=== PATIENT | male | born 1940 | race Caucasian/White ===

== ENCOUNTER 2017-04-06 14:09 | Inpatient (IN) | payer OTHER, MEDICAID ==
[~2017-04-06] VITALS: Ht 165.1 cm; Wt 112.5 kg
[2017-04-06 14:17] VITALS: BP 134/78
[2017-04-06] MEDS ORDERED: MODA200T46 PO (14:46)
[2017-04-06] MEDS ORDERED: DOCU-299 PO (14:46)
[2017-04-06] MEDS ORDERED: ALBU0.0912 INH (14:46)
[2017-04-06] MEDS ORDERED: FINA5TAB1 PO (14:46)
[2017-04-06] MEDS ORDERED: FERR325E14 PO (14:46)
[2017-04-06] MEDS ORDERED: FISH10005 PO (14:46)
[2017-04-06] MEDS ORDERED: CARV25TA PO (14:46)
[2017-04-06] MEDS ORDERED: VITD1000 PO (14:46)
[2017-04-06] MEDS ORDERED: VITB12 PO (14:46)
[2017-04-06] MEDS ORDERED: MIRABULK PO (14:46)
[2017-04-06] MEDS ORDERED: PHO667 PO (14:46)
[2017-04-06] MEDS ORDERED: ALLO100T21 PO (14:46)
[2017-04-06] MEDS ORDERED: BUME1TAB4 PO (14:46)
[2017-04-06] MEDS ORDERED: LEVO0.155 PO (14:46)
[2017-04-06] MEDS ORDERED: LIP80 PO (14:46)
[2017-04-06] MEDS ORDERED: NYST100022 PO (14:46)
[2017-04-06] MEDS ORDERED: NITR0.4T2 SL (14:46)
[2017-04-06] MEDS ORDERED: ASPI81CT89 PO (14:46)
[2017-04-06] MEDS ORDERED: CARB15SO23 OP (14:46)
--- NOTE | 2017-04-06 15:38 | NUR ---
PT TAKEN TO ER BED 10 BY EMS
--- NOTE | 2017-04-06 15:40 | NUR ---
76/M [facility] [facility] SYNCOPE AND HYPOTENSION. HD SITE L UPPER CHEST. DENIES N/V/D;AAOX4 , LUNGS CLEAR BL; PATIENT STATES PAIN OF 0/10 AT THIS TIME; PATIENT POSITIONED FOR COMFORT; HOB ELEVATED; BEDRAILS UP X2; BED DOWN. SARA TUCKER MADE AWARE OF PT STATUS. Addendum: 04/06/17 at 1756 by [email or web address] BOTH KNEES REPLACEMENT. Addendum: 04/06/17 at 1806 by [email or web address] R EYE BLIND.
--- NOTE | 2017-04-06 16:50 | NUR ---
RT AT BEDSIDE ,GAVE NON REBREATHING OXIGEN 15 L/M , PULSE OX 94%. Addendum: 04/06/17 at 1707 by [email or web address] PT C/O BACK PAIN 09/29 AT THIS TIME, NOTIFIED DR WEBBER.
--- NOTE | 2017-04-06 16:54 | NUR ---
Patient being evaluated by DR WEBBER at bedside.
--- NOTE | 2017-04-06 17:03 | NUR ---
PT TAKEN TO CT VIA GURBETI ACCOMPANIED BY ROLL PICKER.
--- NOTE | 2017-04-06 17:03 | NUR ---
`PT PLACED ON 100% NRM POST ABG PER DR BAMBI DEL ANGEL
[2017-04-06] MEDS ORDERED: oxyCODONE/APAP 5/325 MG 1 TAB TAB PO ONE (17:15)
--- NOTE | 2017-04-06 17:47 | NUR ---
LAB AT BEDSIDE
--- NOTE | 2017-04-06 19:22 | NUR ---
EKG DONE AT BEDSIDE BY NADINE SCHAFER AND ANGIE RN. ER MD DR. HANLEY MADE AWARE
[2017-04-06] MEDS ORDERED: SODIUM BICARBONATE 8.4% PFS 50 MEQ/50 ML SYR IVP ONE (19:25)
[2017-04-06] MEDS ORDERED: INSULIN REGULAR, HUMAN 100 UNIT/ML VIAL SUBQ ONE (19:25)
[2017-04-06] MEDS ORDERED: SODIUM POLYSTYRENE 15 GM/60 ML UDBTL PO ONE (19:25)
[2017-04-06] MEDS ORDERED: DEXTROSE 50% 50 ML SYR IVP ONE (19:25)
--- NOTE | 2017-04-06 19:32 | NUR ---
WOUND AT [facility].
--- NOTE | 2017-04-06 19:35 | NUR ---
NO URENATED ; DR WEBBER CANCEL ORDER UA.
--- NOTE | 2017-04-06 19:36 | NUR ---
Pt report given to HANH MCCOY. Transfer of care at this time.
[2017-04-06] MEDS ORDERED: LEVOFLOXACIN 750 MG/D5W PREMIX 150 ML IV ONE (19:45)
[2017-04-06] MEDS ORDERED: VANCOMYCIN 1,000 MG in DEXTROSE 5% 250 ML IV ONE (19:45)
--- NOTE | 2017-04-06 20:58 | NUR ---
PT MOVED TO BED 10
[2017-04-06 21:01] LABS: BASOPHILS # (AUTO) 0.1 K/uL (0.00-0.22); BASOPHILS % (AUTO) 2.4 % (0.0-2.0); EOSINOPHILS % (AUTO) 0.7 % (0.0-4.0); HEMATOCRIT 37.8 % (36-52); HEMOGLOBIN 11.6 g/dL (12.0-18.0); LYMPHOCYTES # (AUTO) 1.4 K/uL (2.0-11.5); LYMPHOCYTES % (AUTO) 23.8 % (20.5-51.1); MEAN CORPUSCULAR HEMOGLOBIN 29 pg (27-31); MEAN CORPUSCULAR HGB CONC 31 g/dL (33-37); MEAN CORPUSCULAR VOLUME 93 fL (80-94); MONOCYTES # (AUTO) 0.2 K/uL (0.8-1.0); MONOCYTES % (AUTO) 3.8 % (1.7-9.3); NEUTROPHILS % (AUTO) 69.3 % (42.2-75.2); PLATELET COUNT (AUTO) 282 K/uL (140-450); RED BLOOD CELL COUNT(AUTO) 4.06 MIL/uL (4.20-6.10); RED CELL DISTRIBUTION WIDTH 18.7 % (11.6-13.7); WHITE BLOOD COUNT (AUTO) 5.7 K/uL (4.8-10.8)
[2017-04-06 21:15] VITALS: BP 102/54
--- NOTE | 2017-04-06 21:17 | NUR ---
PER DR HANLEY PT TO BE PLACED ON BIPAP RT PRESENT AT BEDSIDE SARITHA
[2017-04-06 21:18] LABS: ALBUMIN 1.8 g/dL (3.4-5.0); ANION GAP 11.3 (8-16); ASPARTATE AMINOTRANSFERASE 15 U/L (15-37); CARBON DIOXIDE 34.5 mmol/L (21-32); CHLORIDE 94 mmol/L (98-107); GLUCOSE 220 mg/dL (74-106); POTASSIUM 4.8 mmol/L (3.5-5.1); SODIUM SERUM 135 mmol/L (136-145); TOTAL BILIRUBIN 0.2 mg/dL (0.0-1.0)
[2017-04-06 21:24] LABS: UREA NITROGEN, BLOOD 70 mg/dL (7-18)
[2017-04-06 21:25] LABS: CREATININE 7.8 mg/dL (0.7-1.3)
[2017-04-06 21:38] LABS: PROTHROMBIN TIME 12.2 secs (10.8-13.4)
--- NOTE | 2017-04-06 22:22 | NUR ---
RAC IV removed, catheter intact and site benign. Applied folded 4x4 gauze and tape to stop bleeding.
[2017-04-06] MEDS ORDERED: VANCOMYCIN 1,000 MG VIAL ONE (22:53)
[2017-04-06] MEDS ORDERED: methylPREDNISolone SS 125 MG in WATER STERILE 2 ML IV ONE (23:30)
[2017-04-06] MEDS ORDERED: methylPREDNISolone SS 125 MG/2 ML VIAL ONE (23:32)
[2017-04-06] MEDS ORDERED: NACL 0.9% 1,000 ML IV SCH (23:33)
[2017-04-06] MEDS ORDERED: ONDANSETRON 4 MG/2 ML VIAL IVP PRN (23:35)
[2017-04-06] MEDS ORDERED: HYDROcodone/APAP 7.5/325 MG 1 TAB PO PRN (23:35)
[2017-04-06] MEDS ORDERED: ACETAMINOPHEN 325 MG TAB PO PRN (23:35)
[2017-04-06 23:41] VITALS: BP 84/49
[2017-04-07] VITALS (18 sets, daily range): BP systolic 100–145; BP diastolic 50–80
[2017-04-07 00:07] LABS: CHOL/HDL RATIO 5.7 (1-4.5); FREE T4 (FREE THYROXINE) 0.84 ng/dL (0.76-1.46); MAGNESIUM 2.4 mg/dL (1.8-2.4); PHOSPHORUS 5.9 mg/dL (2.5-4.9); THYROID STIMULATING HORMONE 2.79 uIU/mL (0.34-3.74)
--- NOTE | 2017-04-07 00:30 | NUR ---
RECEIVED PT FROM ER VIA GURNEY.MONITOR ATTACHED.SB TO SR ON MONITOR.PT AWAKE ALERT AND ORIENTED X4.ON BIPAP RATE 14 FIO2 32%.LUNG SOUND DIMINISHED THROUGHOUT.PERIPHERAL IV TO RT THUMB G24 INTACT INFUSING ORDERED IVF.W/HEMODIALYSIS CATHETER TO LT SUBCLAVIAN.WITH D/I DRESSING.W/MULTIPLE SMALL OPEN WOUNDS TO LT BUTTOCKS AND SACROCOCCYGEAL AREA.PT NON AMBULATORY WITH GENERALIZED WEAKNESS NOTED.DENIES PAIN WHEN ASKED. Addendum: 04/07/17 at 0554 by Zuleika Roberson RN BS CHECKED 89
--- NOTE | 2017-04-07 00:39 | NUR ---
Patient will be admitted to care of DR. COTO. Admited to ICU. Will go to rooM 1. Belongings list completed. Report to DARIUS SCHAFER.
--- NOTE | 2017-04-07 00:40 | NUR ---
PT TRANSFERRED TO ICU 1 WITH BETI SCHAFER
--- NOTE | 2017-04-07 01:00 | NUR ---
DR PARDO AT BEDSIDE.PT EXAMINED. PT VERBALIZED WANTING TO GO HOME.PHONE CALL MADE TO PTS SON.AWAITING REPLY.
--- NOTE | 2017-04-07 02:30 | NUR ---
PT ASLEEP;NOT IN RESP DISTRESS.REPOSITIONED.NO C/O PAIN
[2017-04-07] MEDS ORDERED: ALBUTEROL SULFATE/IPRATROPIU 3 ML SOL IH PRN (03:00)
[2017-04-07] MEDS ORDERED: DEXTROSE 50% 50 ML SYR IVP PRN ×2 (03:00→11:35)
--- NOTE | 2017-04-07 04:00 | NUR ---
PT ASLEEP;EASILY AROUSABLE.100% 02SAT /BIPAP.SAME BIPAP SETTINGS RATE 14 FIO2 32%.NO SOB NOTED
[2017-04-07] MEDS ORDERED: CLINDAMYCIN 600 MG/4 ML VIAL ONE (04:19)
[2017-04-07] MEDS ORDERED: CLINDAMYCIN 600 MG in DEXTROSE 5% 50 ML IV SCH (05:00)
[2017-04-07] MEDS: ALBUTEROL SULFATE/IPRATROPIU 3 ML SOL IH SCH ×3 (06:41→20:00)
--- NOTE | 2017-04-07 06:50 | NUR ---
RECIVED PT ON BIPAPWITH SETTINGS CHARTED BREATH SOUNDA PRESENT BILAT DIMINISHED PT AWAKE ANXIOUS AMBU BAG BEDSIDE BIPAP PLUGGED INTO RED OUTLET WILL CONTINUE TO MONITOR PT ON BIPAP
--- NOTE | 2017-04-07 07:00 | NUR ---
REMOVED PT FROM BIPAP AND PLACED ON 4 LPM NCTO EAT BREAKFEAST PT AWAKE CONFUFED BUT EATING BREAKFEAST WILL CONTINUE TO MONITOR PT
--- NOTE | 2017-04-07 07:30 | NUR ---
RECEIVED PT FROM BARREL CENTERER RN. PT AO X4, ON O2 NC 3 L/MIN, NO S/S OF RESPIRATORY DISTRESS NOTED. PT HAS IV TO RIGHT THUMB , INTACT AND PATENT. PERMA CATH TO LEFT CHEST, PT ABLE TO MOVE ALL HIS EXTREMITIES, EDEMA TO BLE NOTED. SKIN NON INTACT, SEE WOULD ASSESSMENT, CALL LIGHT IN REACH, WILL CONTINUE TO MONITOR.
--- NOTE | 2017-04-07 07:56 | NUR ---
BREAKFAST TRAY SERVED, STUDENT AT BEDSIDE FEEDING PT.
[2017-04-07] MEDS: BLOOD GLUCOSE MONITORING 1 DEV DEV FS SCH ×4 (08:01→20:57)
[2017-04-07 08:07] LABS: ANION GAP 14.6 (8-16); CARBON DIOXIDE 33.5 mmol/L (21-32); CHLORIDE 94 mmol/L (98-107); GLUCOSE 82 mg/dL (74-106); POTASSIUM 5.1 mmol/L (3.5-5.1); SODIUM SERUM 137 mmol/L (136-145)
[2017-04-07 08:09] LABS: UREA NITROGEN, BLOOD 72 mg/dL (7-18)
[2017-04-07 08:10] LABS: CREATININE 8.1 mg/dL (0.7-1.3)
[2017-04-07 08:36] LABS: BASOPHILS # (AUTO) 0.2 K/uL (0.00-0.22); BASOPHILS % (AUTO) 1.3 % (0.0-2.0); EOSINOPHILS # (AUTO) 0.1 K/uL (0-0.4); EOSINOPHILS % (AUTO) 0.7 % (0.0-4.0); HEMATOCRIT 22.5 % (36-52); HEMOGLOBIN 7.2 g/dL (12.0-18.0); LYMPHOCYTES # (AUTO) 1.2 K/uL (2.0-11.5); MEAN CORPUSCULAR HEMOGLOBIN 29 pg (27-31); MEAN CORPUSCULAR HGB CONC 32 g/dL (33-37); MEAN CORPUSCULAR VOLUME 91 fL (80-94); MONOCYTES # (AUTO) 0.1 K/uL (0.8-1.0); MONOCYTES % (AUTO) 1.2 % (1.7-9.3); NEUTROPHILS # (AUTO) 10.6 K/uL (1.8-7.7); NEUTROPHILS % (AUTO) 86.8 % (42.2-75.2); PLATELET COUNT (AUTO) 441 K/uL (140-450); RED BLOOD CELL COUNT(AUTO) 2.47 MIL/uL (4.20-6.10); RED CELL DISTRIBUTION WIDTH 17.7 % (11.6-13.7); WHITE BLOOD COUNT (AUTO) 12.3 K/uL (4.8-10.8)
[2017-04-07 08:51] LABS: MAGNESIUM 2.4 mg/dL (1.8-2.4); PHOSPHORUS 5.7 mg/dL (2.5-4.9)
[2017-04-07] MEDS ORDERED: DOCUSATE SODIUM 100 MG GELCAP PO SCH (09:00)
[2017-04-07] MEDS ORDERED: SODIUM BICARBONATE 8.4% PFS 50 MEQ/50 ML SYR IVP ONE (09:00)
--- NOTE | 2017-04-07 09:04 | NUR ---
PATIENT HAS BEEN SCREENED AND CATEGORIZED HIGH NUTRITION RISK. PATIENT WILL BE SEEN WITHIN 1-2 DAYS OF ADMISSION. 04/06/18-04/07/[address]
[2017-04-07] MEDS ORDERED: VANCOMYCIN PER PHARMACY MC PRN (09:15)
[2017-04-07] MEDS ORDERED: methylPREDNISolone SS 125 MG/2 ML VIAL IVP SCH (09:27)
--- NOTE | 2017-04-07 10:45 | NUR ---
DR. CAMARENA AND DR. MCWILLIAMS AWARE PT HAS SB-SR RANGE FROM 39-90.
[2017-04-07] MEDS ORDERED: PROBIOTIC SCREEN 1 EA MISC MC PRN (11:10)
[2017-04-07] MEDS: INSULIN LISPRO SLIDING SCALE 100 UNITS/ML VIAL SUBQ PRN ×3 (11:30→21:08)
[2017-04-07] MEDS ORDERED: INSULIN LISPRO SLIDING SCALE 100 UNITS/ML VIAL SUBQ PRN (11:35)
[2017-04-07] MEDS: HYDRAGUARD CREAM TP SCH (13:00)
--- NOTE | 2017-04-07 13:53 | NUR ---
CM NOTE INITIAL REVIEW FOR CRITERIA DONE
--- NOTE | 2017-04-07 14:00 | NUR ---
Social Workers notes: [facility] [place] and I spoke to Tile Designer at Admissions office Fabiola and required information in regards to patient. Per Tile Designer Fabiola Patient is a new patient that recently about a day ago was placed in their facility to receive Skill Nursing services temporarily 1-2 weeks. According to Tile Designer Patient when for a dialysis appointment, got ill in facility and was send to [facility]. Per general farmworker Fabiola, There is little to non information about patient's emergency contact or family involvement. Per Fabiola, Patient is to return to their facility when patient is stable or ready for discharge. I thank Fabiola for her information and I ended the call.
[2017-04-07] MEDS: methylPREDNISolone SS 125 MG/2 ML VIAL IVP SCH ×2 (14:19→21:08)
--- NOTE | 2017-04-07 14:29 | NUR ---
04/07/2017 RD INITIAL ASSESSMENT COMPLETED PLEASE REFER TO NUTRITION ASSESSMENT UNDER CARE ACTIVITY FOR ESTIMATED NUTRITIONAL NEEDS. CONTINUE ANTIHYPERGLYCEMIC MEDS AND 60 GM PCCHO DIET FOR GLUCOSE CONTROL PROVIDE ADEQUATE ENERGY AND PROTEIN TO DECREASE RISK OF MALNOURISHMENT WHILE PROVIDING HEALTHY MEAL OPTIONS RD TO FOLLOW-UP IN 2-3 DAYS PATIENT IS HIGH RISK. YONY WALSH, RD
[2017-04-07] MEDS ORDERED: BLOOD GLUCOSE MONITORING 1 DEV DEV FS SCH (16:30)
[2017-04-07] MEDS ORDERED: VITD1000 PO (17:40)
[2017-04-07] MEDS ORDERED: GLYCERIN OP PRN (17:40)
[2017-04-07] MEDS ORDERED: FISH10005 PO (17:40)
[2017-04-07] MEDS ORDERED: CARBOXYMETHYLCELLULOS OP PRN (17:40)
[2017-04-07] MEDS ORDERED: VITB12 PO (17:40)
[2017-04-07] MEDS ORDERED: NITROGLYCERIN 0.4 MG TAB SL PRN (17:40)
[2017-04-07] MEDS ORDERED: ALBUTEROL HFA MDI 90 MCG/ACTUATION 8 GM INH PRN (17:40)
--- NOTE | 2017-04-07 19:30 | NUR ---
REPORT RECEIVED FROM ML [place] RN. PT IS A&O X4 AND IS CURRENTLY RECEIVING HEMODIALYSIS AT BED SIDE. BILATERAL LUNG SOUNDS CLEAR. S1 AND S2 HEARD WITHOUT ABNORMAL SOUNDS. BOWEL SOUNDS ACTIVE. HEMODIALYSIS PERMA CATH NOTED TO LEFT UPPER CHEST. IV SITE NOTED TO RIGHT LEG 22G AND ASYMPTOMATIC AND PATENT. 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 SR ON MONITOR. DRESSING INTACT ON THE SACROCOCCYX AREA. HX OF MRSA NOTED. CONTACT ISOLATION PRECAUTIONS CARRIED OUT DURING CARE. DENIES PAIN OR DISCOMFORT AT THIS TIME. PORTABLE TRANS THORACIC PACEMAKER AT BED SIDE. PT IS SR AT THIS TIME. HEMODIALYSIS NURSE AT BED SIDE AT THIS TIME. CALL LIGHT IN REACH AND HOB ELEVATED TO 30 DEGREES AND KEPT BED TO THE LOWEST POSITION. WILL CONTINUE TO MONITOR.
[2017-04-07] MEDS ORDERED: LEVOFLOXACIN 750 MG/D5W PREMIX 150 ML IV SCH (20:00)
--- NOTE | 2017-04-07 20:00 | NUR ---
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
--- NOTE | 2017-04-07 20:16 | NUR ---
DR. TUCKER PAGED TO CLARIFY THE BED SIDE PACE MAKER RATE IN CASE THE PT NEEDS IT. Addendum: 04/07/17 at 2352 by Angeli Garcia RN DR. GRULLON SPELLED WRONG- CORRECTION TO DR. MENJIVAR.
--- NOTE | 2017-04-07 20:22 | NUR ---
DR. GAMA CALLED BACK AND ORDERED TO START THE PACE MAKER AT RATE OF 50 AND START Ma=14. Addendum: 04/07/17 at 2352 by Angeli Garcia RN DR. GRULLON SPELLED WRONG- CORRECTION TO DR. MENJIVAR.
[2017-04-07] MEDS ORDERED: MODAFINIL 200 MG PO SCH (21:00)
[2017-04-07] MEDS ORDERED: FERROUS SULFATE 325 MG TABEC PO SCH (21:00)
[2017-04-07] MEDS ORDERED: CARVEDILOL 12.5 MG TAB PO SCH ×2 (21:00)
--- NOTE | 2017-04-07 21:00 | NUR ---
SPOKE TO DR. JIMMIE COTO IN REGARDS TO MDI ORDERED BY DR. ZAHIRA GR AT [address] COTO THAT PATIENT IS ON HHN THERAPY MD STATES THAT HE WILL DISCONTINUE MDI
--- NOTE | 2017-04-07 21:02 | NUR ---
PT COMPLETED WITH HEMODIALYSIS AT THIS TIME. 2L OUTPUT NOTED. PT DENIES ANY PAIN OR DISCOMFORT.
[2017-04-07] MEDS: NYSTATIN 500 MU/5 ML UDC PO SCH (21:08)
[2017-04-07] MEDS: DOCUSATE SODIUM 250 MG GELCAP PO SCH (21:09)
[2017-04-07] MEDS: ATORVASTATIN 80 MG TAB PO SCH (21:10)
--- NOTE | 2017-04-07 22:15 | NUR ---
AWAKE AND ALERT RESPONSIVE TO AUTOMOTIVE PARTS COUNTER ASSOCIATE VERBAL COMMANDS WATCHING TELEVISION PATIENT DENIES THE USE OF BIPAP AT THIS TIME PATIENT WILL ACCEPT IN ONE HOUR IF ASLEEP
--- NOTE | 2017-04-07 22:40 | NUR ---
PATIENT REQUEST BIPAP USE AT THIS TIME PATIENT PROTECTA-GEL IN PLACE PATIENT C/O "TOO MUCH PRESSURE" DECREASED IPAP TO [id number] EPAP TO 8cmH2O PATIENT STATES "THAT IS MORE COMFORTABLE WITH PRESSURE" UNIT CLERK TO REVIEW PRESSURE CHANGE WITH DR. DEBBIE COTO
[2017-04-08] VITALS (12 sets, daily range): BP systolic 120–155; BP diastolic 60–135
--- NOTE | 2017-04-08 | NUR ---
PT ON BIPAP AT THIS TIME. NO S/SX OF PAIN OR DISCOMFORT. SR ON MONITOR. WILL CONTINUE TO MONITOR.
[2017-04-08] MEDS: HYDRAGUARD CREAM TP SCH ×2 (01:30→12:15)
--- NOTE | 2017-04-08 01:30 | NUR ---
WOUND CARE PROVIDED ORDERED. TOLERATED WELL. DENIED PAIN OR DISCOMFORT. WILL CONTINUE TO MONITOR.
--- NOTE | 2017-04-08 02:13 | NUR ---
CONTINUING W/ BIPAP. REPOSITIONED. HR=50-70. O2 SAT=97%. RR EVEN AND UNLABORED. PT DENIES PAIN OR DISCOMFORT. AFEBRILE. TRANS THORACIC PACEMAKER AT BED SIDE IN CASE OF A USE. WILL CONTINUE TO MONITOR.
[2017-04-08] MEDS: methylPREDNISolone SS 40 MG/ML VIAL IVP SCH ×3 (04:18→21:02)
--- NOTE | 2017-04-08 05:00 | NUR ---
MORNING CARE PROVIDED. PT REQUESTED BIPAP TO BE OFF AND BACK TO O2 VIA NC. ASSISTED PT REQUESTED. O2 SAT 97%. DENIES ANY PAIN OR DISCOMFORT. WILL CONTINUE TO MONITOR.
[2017-04-08] MEDS: LEVOTHYROXINE 0.075 MG TAB PO SCH (05:40)
--- NOTE | 2017-04-08 05:55 | NUR ---
DR. CARLOS AT BED SIDE. UPDATED PT'S CONDITION OVER NIGHT.
--- NOTE | 2017-04-08 06:32 | NUR ---
DR. CARLOS MADE AWARE OF THE HR DROP TO 43 @ 0623 AND TEMP PACER WAS ON. THE HR WENT UP TO OVER 100 AND PT REFUSED TO PUT IT ON DUE TO BEING UNCOMFORTABLE. HR 79 AT THIS TIME. WILL CONTINUE TO MONITOR.
[2017-04-08 06:39] LABS: ANION GAP 15.5 (8-16); CARBON DIOXIDE 29.6 mmol/L (21-32); CHLORIDE 95 mmol/L (98-107); GLUCOSE 168 mg/dL (74-106); POTASSIUM 4.1 mmol/L (3.5-5.1); SODIUM SERUM 136 mmol/L (136-145); UREA NITROGEN, BLOOD 57 mg/dL (7-18)
--- NOTE | 2017-04-08 06:40 | NUR ---
PAGED DR. MENJIVAR REGARDING THE HR AND TEMP PACER. AWAITING A CALL BACK.
[2017-04-08 06:42] LABS: CREATININE 6.1 mg/dL (0.7-1.3)
[2017-04-08 06:46] LABS: PHOSPHORUS 5.6 mg/dL (2.5-4.9)
[2017-04-08 06:49] LABS: MEAN CORPUSCULAR HEMOGLOBIN 29 pg (27-31); MEAN CORPUSCULAR HGB CONC 32 g/dL (33-37); MEAN CORPUSCULAR VOLUME 91 fL (80-94); PLATELET COUNT (AUTO) 454 K/uL (140-450); WHITE BLOOD COUNT (AUTO) 7.8 K/uL (4.8-10.8)
[2017-04-08 06:51] LABS: HEMOGLOBIN 6.7 g/dL (12.0-18.0)
[2017-04-08] MEDS: ALBUTEROL SULFATE/IPRATROPIU 3 ML SOL IH SCH ×3 (06:55→20:13)
--- NOTE | 2017-04-08 06:56 | NUR ---
RECEIVED PT ON 3L N/ PT REQUEST BIPAP TO SLEEP PLACED F\F MASK SIZE LARGE ST 16\8 RR 14 FIO2 32 ALARMS ARE ON AND AUDIBLE PT IN SEMI BS DIMINISHED BIPAP PLUGGED INTO RED OUTLET BMV PLACED BEDSIDE
[2017-04-08] MEDS ORDERED: LEVOFLOXACIN 750 MG/D5W PREMIX 150 ML IV SCH (07:05)
--- NOTE | 2017-04-08 07:05 | NUR ---
DR. MENJIVAR CALLED BACK AND REPORTED PT'S HR AND TEMP PACER. DR. MENJIVAR ORDERED TO TURN ON THE TEMP PACER IF THE HR GOES LOWER THAN 40 AND IF IT BRINGS UP THE HR, STOP THE PACER. NOTED AND WILL CARRY OUT.
--- NOTE | 2017-04-08 07:25 | NUR ---
REPORT GIVEN TO HANH ELIZABETH FOR CONTINUITY OF CARE. PT VS WITHOUT ACUTE DISTRESS. ALL SAFETY PRECAUTIONS ARE IN PLACE.
--- NOTE | 2017-04-08 07:25 | NUR ---
RECEIVED REPORT FROM NIGHT NURSE. PT IS ALERT AND ORIENTED X 4, FOLLOWS COMMANDS AND ABLE TO MAKE NEEDS KNOWN. NORMAL SINUS RHYTHM. PORTABLE TRANS THORACIC PACEMAKER AT BEDSIDE FOR HR < 40. S1 AND S2 HEARD. PT IS ON BIPAP 16/8 AT RR 14 AND FIO2 32%. BILATERAL LUNG SOUNDS CLEAR. ABDOMEN SOFT, ROUND, NONTENDER. BOWEL SOUNDS PRESENT. HEMODIALYSIS PERMA CATH PRESENT ON LEFT UPPER CHEST. IV SITE TO RIGHT LEG 22G ASYMPTOMATIC, INTACT AND PATENT. PT IS AFEBRILE. DENIES PAIN OR DISCOMFORT. DRESSING TO SACROCOCCYX AREA CLEAN AND INTACT. SCDS IN PLACE FOR VTE PROPHYLAXIS. SKIN IS DRY AND WARM TO TOUCH. HOB AT 30 DEGREES AND CALL LIGHT WITHIN REACH. SAFETY PRECAUTIONS IN PLACE. WILL CONTINUE TO MONITOR.
--- NOTE | 2017-04-08 07:40 | NUR ---
PT ON O2 AT 3 LPM/NC. TOLERATING WELL. VSS. WILL CONTINUE TO MONITOR.
[2017-04-08] MEDS: BLOOD GLUCOSE MONITORING 1 DEV DEV FS SCH ×4 (07:58→21:00)
[2017-04-08 08:09] LABS: EOSINOPHILS % (MANUAL) 1 % (0-4); LYMPHOCYTES % (MANUAL) 15 % (20-46); MONOCYTES % (MANUAL) 3 % (5-12)
[2017-04-08] MEDS: LACTOBACILLUS RHAMNOSUS GG 1 EACH CAP PO SCH (08:21)
[2017-04-08] MEDS: FERROUS SULFATE 325 MG TABEC PO SCH ×2 (08:21→16:34)
[2017-04-08] MEDS: BUMETANIDE 1 MG TAB PO SCH ×3 (08:21→16:33)
[2017-04-08] MEDS: POLYETHYLENE GLYCOL 17 GM/PKT PO SCH (08:21)
[2017-04-08] MEDS: NYSTATIN 500 MU/5 ML UDC PO SCH ×4 (08:21→21:04)
[2017-04-08] MEDS: DOCUSATE SODIUM 250 MG GELCAP PO SCH ×2 (08:21→21:04)
[2017-04-08] MEDS: VIT-B COMP/VIT-C/FOLIC ACID 1 TAB PO SCH (08:22)
[2017-04-08] MEDS: FINASTERIDE 5 MG TAB PO SCH (08:23)
[2017-04-08] MEDS: CHOLECALCIFEROL 1,000 IU TAB PO SCH (08:24)
[2017-04-08] MEDS: SKINTEGRITY HYDROGEL TP SCH (08:27)
[2017-04-08] MEDS: CALCIUM ACETATE 667 MG TAB PO SCH ×3 (08:27→16:34)
[2017-04-08] MEDS: ALLOPURINOL 100 MG TAB PO SCH (08:27)
--- NOTE | 2017-04-08 08:30 | NUR ---
MEDICATIONS ADMINISTERED. PT TOLERATED WELL.
--- NOTE | 2017-04-08 08:45 | NUR ---
DR. FLANAGAN AND RESIDENT GROUP IN TO SEE PT. WILL FOLLOW UP ON ORDERS.
[2017-04-08] MEDS ORDERED: OMEGA PO SCH (09:00)
[2017-04-08] MEDS ORDERED: FISH OIL PO SCH (09:00)
[2017-04-08] MEDS ORDERED: FATTY ACIDS PO SCH (09:00)
[2017-04-08] MEDS ORDERED: ASPIRIN 81 MG TAB.CHEW PO SCH (09:00)
[2017-04-08] MEDS: FAMOTIDINE 20 MG TAB PO SCH (09:02)
[2017-04-08] MEDS: POLYVINYL ALCOHOL 1.4% OP 15 ML SOL OP SCH ×3 (09:35→16:43)
--- NOTE | 2017-04-08 10:40 | NUR ---
PT SLEEPING COMFORTABLY. NO S/SX OF ACUTE DISTRESS AT THIS TIME. SAFETY PRECAUTIONS IN PLACE.
--- NOTE | 2017-04-08 11:40 | NUR ---
DR. ASHFORD IN TO SEE AND EXAMINE PT. UPDATES GIVEN. WILL FOLLOW UP ON ORDERS.
[2017-04-08] MEDS ORDERED: VANCOMYCIN 1GM/DEXT 5% PREMIX 200 ML IV SCH (12:00)
[2017-04-08] MEDS: INSULIN LISPRO SLIDING SCALE 100 UNITS/ML VIAL SUBQ PRN ×2 (12:16→21:20)
--- NOTE | 2017-04-08 12:30 | NUR ---
PT HAVING LUNCH. MEDICATIONS ADMINISTERED. VITAL SIGNS STABLE. NEEDS WELL ATTENDED. WILL CONTINUE TO MONITOR.
[2017-04-08] MEDS: CHLORHEXADINE GLUC 2% CLOTH TP SCH (13:39)
[2017-04-08 13:46] LABS: LYMPHOCYTES # (AUTO) 1.5 K/uL (2.0-11.5); WHITE BLOOD COUNT (AUTO) 7.8 K/uL (4.8-10.8)
[2017-04-08 13:49] LABS: BASOPHILS # (AUTO) 0.1 K/uL (0.00-0.22); BASOPHILS % (AUTO) 1.1 % (0.0-2.0); EOSINOPHILS % (AUTO) 0.2 % (0.0-4.0); LYMPHOCYTES % (AUTO) 19.7 % (20.5-51.1); MEAN CORPUSCULAR HEMOGLOBIN 30 pg (27-31); MEAN CORPUSCULAR HGB CONC 32 g/dL (33-37); MEAN CORPUSCULAR VOLUME 93 fL (80-94); MONOCYTES # (AUTO) 0.2 K/uL (0.8-1.0); MONOCYTES % (AUTO) 2.7 % (1.7-9.3); NEUTROPHILS % (AUTO) 76.3 % (42.2-75.2); PLATELET COUNT (AUTO) 471 K/uL (140-450); RED CELL DISTRIBUTION WIDTH 18.2 % (11.6-13.7)
[2017-04-08 13:50] LABS: HEMATOCRIT 20.4 % (36-52); HEMOGLOBIN 6.6 g/dL (12.0-18.0)
[2017-04-08] MEDS: MUPIROCIN 2% OINT 22 GM TUBE TP SCH (13:54)
--- NOTE | 2017-04-08 14:10 | NUR ---
PT SEEN BY DR. MENJIVAR. WILL FOLLOW UP ON ORDERS.
--- NOTE | 2017-04-08 14:30 | NUR ---
PT RECEIVING PHYSICAL THERAPY. TOLERATING WELL. VITAL SIGNS STABLE. NO DISTRESS NOTED AT THIS TIME.
--- NOTE | 2017-04-08 16:05 | NUR ---
PHYSICAL THERAPY CO-SIGN The Physical Therapy Progress Notes documented by Sanitary Landfill Supervisor have been reviewed. I CONCUR W/MANAGER LINE NOTE; CONT PER TX PLAN Reviewed/Co-Signed by: Jyotsna Gerard PT Documentation Done by: GABBY CUELLAR MANAGER LINE Addendum: 04/10/17 at 6932 by Jyotsna Gerard PT Amended: Links added.
[2017-04-08] MEDS ORDERED: CYANOCOBALAMIN 1,000 MCG TAB PO SCH (17:00)
[2017-04-08] MEDS: CYANOCOBALAMIN 1,000 MCG TAB PO SCH (17:30)
--- NOTE | 2017-04-08 17:39 | NUR ---
PT SEEN AND EXAMINED BY DR. MAN. WILL FOLLOW UP ON ORDERS.
--- NOTE | 2017-04-08 18:00 | NUR ---
PT TRANSFERRED TO TELEMETRY ROOM 113. VITAL SIGNS STABLE. NO DISTRESS NOTED. REPORT GIVEN TO HANH HIGGINS AT BEDSIDE.
--- NOTE | 2017-04-08 18:01 | NUR ---
RECEIVED REPORT FROM ICU NURSE . PT IS ALERT AND ORIENTED X 3,ABLE TO MAKE NEEDS KNOWN. O2 @3L/MIN VIA NC. BILATERAL LUNG SOUNDS CLEAR. ABDOMEN SOFT, ROUND, NONTENDER. BOWEL SOUNDS PRESENT. HEMODIALYSIS PERMA CATH TO LEFT UPPER CHEST. IV SITE TO RIGHT LEG 22G ASYMPTOMATIC, INTACT AND PATENT. DENIES PAIN OR DISCOMFORT.SACROCOCCYX WOUND CLEAN AND INTACT. SCDS IN PLACE. SKIN IS DRY AND WARM TO TOUCH. HOB AT 30 DEGREES AND CALL LIGHT WITHIN REACH. BED IN LOW POSITION.PATIENT HAVING DINNER IN BED WATCHING TV. WILL CONTINUE TO MONITOR.
--- NOTE | 2017-04-08 19:27 | NUR ---
ENDORSED REPORT TO SEAT COVER CUTTER NURSE AT BEDSIDE FOR CONTINUITY OF CARE.
--- NOTE | 2017-04-08 19:28 | NUR ---
RECEIVED HANDOFF REPORT FROM AM RN. PATIENT A&OX2. PATIENT DENIES PAIN. PATIENT ON 3L O2 NC. PATIENT PULLED OUT IV HOLDING IT IN HIS HANDS. NO SIGNS OF BLEEDING NOTED. NO SIGNS OR SYMPTOMS OF ACUTE DISTRESS NOTED. PATIENT ORIENTED TO ROOM. CALL LIGHT WITHIN REACH. WILL CONTINUE TO MONITOR.
--- NOTE | 2017-04-08 20:35 | NUR ---
RT IN TO SEE PATIENT. PATIENT PLACED ON BIPAP. O2 MONITOR AT BEDSIDE. NO SIGNS OR SYMPTOMS OF ACUTE DISTRESS NOTED. CALL LIGHT WITHIN REACH. WILL CONTINUE TO MONITOR.
--- NOTE | 2017-04-08 20:38 | NUR ---
PT REQUESTED TO BE PLACED ON BIPAP FOR THE NIGHT, NATY SCHAFER AWARE
[2017-04-08] MEDS: ATORVASTATIN 80 MG TAB PO SCH (21:04)
--- NOTE | 2017-04-08 21:05 | NUR ---
NEW IV STARTED. 20G TO LEFT LEG. PATIENT TOLERATED WELL. NO SIGNS OR SYMPTOMS OF ACUTE DISTRESS NOTED. PATIENT DENIES PAIN. CALL LIGHT WITHIN REACH. WILL CONTINUE TO MONITOR.
[2017-04-09] VITALS: BP 146/67
[2017-04-09] MEDS: HYDRAGUARD CREAM TP SCH ×2 (01:08→13:00)
--- NOTE | 2017-04-09 02:27 | NUR ---
PATIENT REQUESTED NOT TO WEAR BIPAP. PATIENT PLACED ON 3L O2 NC. PATIENT O2 SAT IS 94%. NO SIGNS OR SYMPTOMS OF ACUTE DISTRESS NOTED. SAFETY MEASURES ENSURED. CALL LIGHT WITHIN REACH. WILL CONTINUE TO MONITOR.
[2017-04-09 04:00] VITALS: BP 144/76
[2017-04-09] MEDS: BLOOD GLUCOSE MONITORING 1 DEV DEV FS SCH ×4 (06:24→20:37)
[2017-04-09] MEDS: LEVOTHYROXINE 0.075 MG TAB PO SCH (06:24)
[2017-04-09] MEDS: ALBUTEROL SULFATE/IPRATROPIU 3 ML SOL IH SCH ×3 (06:34→19:05)
[2017-04-09 07:23] LABS: BASOPHILS % (AUTO) 0.5 % (0.0-2.0); EOSINOPHILS # (AUTO) 0.1 K/uL (0-0.4); EOSINOPHILS % (AUTO) 0.6 % (0.0-4.0); LYMPHOCYTES # (AUTO) 1.9 K/uL (2.0-11.5); LYMPHOCYTES % (AUTO) 20.6 % (20.5-51.1); MEAN CORPUSCULAR HEMOGLOBIN 29 pg (27-31); MEAN CORPUSCULAR HGB CONC 32 g/dL (33-37); MEAN CORPUSCULAR VOLUME 90 fL (80-94); MONOCYTES # (AUTO) 0.3 K/uL (0.8-1.0); MONOCYTES % (AUTO) 3.3 % (1.7-9.3); NEUTROPHILS # (AUTO) 6.8 K/uL (1.8-7.7); PLATELET COUNT (AUTO) 445 K/uL (140-450); RED BLOOD CELL COUNT(AUTO) 2.27 MIL/uL (4.20-6.10); RED CELL DISTRIBUTION WIDTH 17.9 % (11.6-13.7); WHITE BLOOD COUNT (AUTO) 9.1 K/uL (4.8-10.8)
[2017-04-09 07:24] LABS: CHLORIDE 91 mmol/L (98-107); GLUCOSE 155 mg/dL (74-106); SODIUM SERUM 131 mmol/L (136-145)
[2017-04-09 07:26] LABS: MAGNESIUM 1.9 mg/dL (1.8-2.4)
[2017-04-09 07:37] LABS: HEMATOCRIT 20.5 % (36-52); HEMOGLOBIN 6.6 g/dL (12.0-18.0)
--- NOTE | 2017-04-09 07:37 | NUR ---
ENDORSED PLAN OF CARE TO AM RN. PATIENT IN STABLE CONDITION.
--- NOTE | 2017-04-09 07:45 | NUR ---
RECEIVED REPORT FROM CHARGE NURSE. PATIENT IS A&OX3. PATIENT IS AWAKE AT THIS TIME. PATIENT RESPIRATIONS ARE EVEN AND UNLABORED. PATIENT COMPLAINS OF NO PAIN. UPDATED BOARDS AND SIGNS POSTED OUTSIDE. WILL CONTINUE TO MONITOR PATIENT.
[2017-04-09 07:58] LABS: CREATININE 7.1 mg/dL (0.7-1.3)
[2017-04-09 08:00] VITALS: BP 158/74
[2017-04-09] MEDS: POLYETHYLENE GLYCOL 17 GM/PKT PO SCH (09:00)
[2017-04-09] MEDS: LACTOBACILLUS RHAMNOSUS GG 1 EACH CAP PO SCH (09:00)
[2017-04-09] MEDS: SKINTEGRITY HYDROGEL TP SCH (09:00)
[2017-04-09] MEDS ORDERED: LEVOFLOXACIN 500 MG/D5W PREMIX 100 ML IV SCH (09:00)
[2017-04-09] MEDS: POLYVINYL ALCOHOL 1.4% OP 15 ML SOL OP SCH ×3 (09:00→17:54)
[2017-04-09] MEDS: BUMETANIDE 1 MG TAB PO SCH ×3 (09:00→17:48)
[2017-04-09] MEDS ORDERED: SODIUM CHLORIDE 1 GM TAB PO SCH (09:30)
--- NOTE | 2017-04-09 10:34 | NUR ---
HEMODIALYSIS NURSE ALVARO IS WITH PATIENT AT THE MOMENT. PREPARING PATIENT FOR HEMODIALYSIS. PROVIDED NURSE WITH CBC, BMP, AND DOCTOR'S ORDER. WILL CONTINUE TO MONITOR PATIENT.
--- NOTE | 2017-04-09 11:55 | NUR ---
PATIENT STILL RECEIVING HEMODIALYSIS TREATMENT. HEMODIALYSIS NURSE AT BEDSIDE. WILL CONTINUE TO MONITOR PATIENT.
[2017-04-09 11:56] VITALS: BP 127/68
[2017-04-09] MEDS: ACETAMINOPHEN 325 MG TAB PO SCH ×3 (12:36→20:40)
--- NOTE | 2017-04-09 12:37 | NUR ---
HEMODIALYSIS NURSE STARTED BLOOD TRANSFUSION. VITAL SIGNS ARE WITHIN NORMAL LIMITS AT THIS TIME. WILL CONTINUE TO MONITOR PATIENT.
--- NOTE | 2017-04-09 12:58 | NUR ---
PATIENT BLOOD PRESSURE IS WITHIN NORMAL LIMITS DURING THIS TIME. NO SIGNS OF ANY REACTION NOTED. PATIENT RESPIRATIONS ARE EVEN AND UNLABORED AT THIS TIME. WILL CONTINUE TO MONITOR PATIENT.
[2017-04-09] MEDS: MUPIROCIN 2% OINT 22 GM TUBE TP SCH (13:00)
[2017-04-09] MEDS: NYSTATIN 500 MU/5 ML UDC PO SCH ×4 (13:00→20:42)
[2017-04-09] MEDS: CHLORHEXADINE GLUC 2% CLOTH TP SCH (13:00)
[2017-04-09 13:13] LABS: UREA NITROGEN, BLOOD 95 mg/dL (7-18)
--- NOTE | 2017-04-09 13:15 | NUR ---
PATIENT BLOOD TRANSFUSION COMPLETE. NO SIGNS OF ALLERGIC REACTION NOTED. PATIENT RESPIRATIONS ARE EVEN AND UNLABORED. VITAL SIGNS ARE WITHIN NORMAL LIMITS. WILL CONTINUE TO MONITOR PATIENT.
--- NOTE | 2017-04-09 13:41 | NUR ---
PT SLEEPING WITH NO SIGNS OF DISTRESS NOTED AT THIS TIME, NO HHN GIVEN PT IS RECEIVING DIALYSIS
[2017-04-09] MEDS: DOCUSATE SODIUM 250 MG GELCAP PO SCH ×2 (13:59→20:41)
[2017-04-09] MEDS: FAMOTIDINE 20 MG TAB PO SCH (13:59)
[2017-04-09] MEDS: FERROUS SULFATE 325 MG TABEC PO SCH ×2 (13:59→17:47)
[2017-04-09] MEDS: VIT-B COMP/VIT-C/FOLIC ACID 1 TAB PO SCH (14:00)
[2017-04-09] MEDS: CHOLECALCIFEROL 1,000 IU TAB PO SCH (14:00)
[2017-04-09] MEDS: LISINOPRIL 10 MG TAB PO SCH (14:02)
[2017-04-09] MEDS: FINASTERIDE 5 MG TAB PO SCH (14:02)
[2017-04-09] MEDS: CALCIUM ACETATE 667 MG TAB PO SCH ×2 (14:02→17:47)
[2017-04-09] MEDS: FUROSEMIDE 20 MG TAB PO SCH ×3 (14:03→20:41)
[2017-04-09] MEDS: ALLOPURINOL 100 MG TAB PO SCH (14:03)
--- NOTE | 2017-04-09 15:00 | NUR ---
PATIENT RESTING IN BED. NO COMPLAINTS OF PAIN, OR RESPIRATORY DISTRESS. WILL CONTINUE TO MONITOR PATIENT.
[2017-04-09 15:03] LABS: HEMOGLOBIN 8.2 g/dL (12.0-18.0)
[2017-04-09 15:06] LABS: BASOPHILS # (AUTO) 0.4 K/uL (0.00-0.22); HEMATOCRIT 25.4 % (36-52); LYMPHOCYTES # (AUTO) 2.3 K/uL (2.0-11.5); MEAN CORPUSCULAR HEMOGLOBIN 29 pg (27-31); MEAN CORPUSCULAR HGB CONC 32 g/dL (33-37); MEAN CORPUSCULAR VOLUME 91 fL (80-94); MONOCYTES # (AUTO) 0.4 K/uL (0.8-1.0); NEUTROPHILS # (AUTO) 10.7 K/uL (1.8-7.7); PLATELET COUNT (AUTO) 551 K/uL (140-450); RED BLOOD CELL COUNT(AUTO) 2.79 MIL/uL (4.20-6.10); RED CELL DISTRIBUTION WIDTH 18.5 % (11.6-13.7); WHITE BLOOD COUNT (AUTO) 13.8 K/uL (4.8-10.8)
[2017-04-09 16:00] VITALS: BP 153/87
--- NOTE | 2017-04-09 17:30 | NUR ---
GAVE REPORT TO DAYSHIFT NURSE PABLO. PATIENT IS IN STABLE CONDITION.
--- NOTE | 2017-04-09 17:35 | NUR ---
RECEIVED REPORT FROM HANH HOFFMANN. PT IS RESTING IN BED EATING DINNER, PT IS AAOX3, PT IS ON BEDREST, PT HAS IV ON HIS LEG (THIGH), PATENT, INTACT, FLUSHING WELL, PT HAS IRVIN CATH ON HIS LEFT UPPER CHEST, PT HAD DIALYSIS DONE TODAY, 3 LITER OUTPUT, PT IS ON ROOM AIR AT THIS TIME, NO S/S OF RESPIRATORY DISTRESS OR DISCOMFORT NOTED, SAFETY/FALL PRECAUTIONS ARE IN PLACE, CALL LIGHT WITHIN REACH, WILL CONTINUE TO MONITOR.
[2017-04-09] MEDS: CYANOCOBALAMIN 1,000 MCG TAB PO SCH (17:47)
--- NOTE | 2017-04-09 19:11 | NUR ---
ENDORSED PT TO THREAD REELER NURSE FOR CONTINUITY OF CARE. PT STABLE AT THIS TIME.
--- NOTE | 2017-04-09 19:12 | NUR ---
RECEIVED REPORT FROM DAY SHIFT NURSE. PT IS A/OX4, IS ON 3L O2 VIA NASAL CANNULA AND BIPAP AT BEDSIDE FOR NIGHTTIME. 20G IV TO LEFT LEG, AND IRVIN CATH FOR DIALYSIS AT LEFT UPPER CHEST. PT IS A FALL RISK, FALL PRECAUTIONS IN PLACE. PT HAS SACRAL WOUND. UPDATED BOARD. VITAL SIGNS WITHIN NORMAL LIMITS. PT IN STABLE CONDITION, NO SIGNS OF DISTRESS NOTED. BED IN LOWEST POSITION, CALL LIGHT WITHIN REACH. WILL CONTINUE TO MONITOR.
[2017-04-09 20:00] VITALS: BP 148/71
--- NOTE | 2017-04-09 20:16 | NUR ---
SPOKE WITH DR DOTY ABOUT TYLENOL, LASIX, AND BENADRYL SCHEDULED Q4H, NOT PRN, AND THAT IT HAD BEEN ORDERED FOR TRANSFUSION BUT TRANSFUSION WAS EARLIER. DR DOTY SAID IT WAS OK TO GIVE FOR 2 OR 3 DOSES AFTER TRANSFUSION AND THAT HE WOULD CHECK ORDER AFTER 2 DOSES.
[2017-04-09] MEDS: INSULIN LISPRO SLIDING SCALE 100 UNITS/ML VIAL SUBQ PRN (20:38)
[2017-04-09] MEDS: ATORVASTATIN 80 MG TAB PO SCH (20:41)
--- NOTE | 2017-04-09 20:45 | NUR ---
ADMINISTERED SCHEDULED MEDICATIONS, PT TOLERATED WELL. ALSO ADMINISTERED 2 UNITS OF SLIDING SCALE HUMALOG INSULIN FOR BLOOD SUGAR OF 151.
--- NOTE | 2017-04-09 23:05 | NUR ---
PT REQUESTED NOT TO BE PLACED ON BIPAP FOR THE NIGHT YET, STILL HAVING A SNACK AND WATCHING TV, WILL CHECK BACK LATER, NO RESP DISTRESS OR SOB NOTED AT THIS TIME, CONT PULSE OX ON, WILL CHECK BACK LATER, HENRY SCHAFER AWARE.
[2017-04-10] VITALS: BP 137/69
--- NOTE | 2017-04-10 00:40 | NUR ---
VITAL SIGNS WITHIN NORMAL LIMITS. PT IN STABLE CONDITION, NO SIGNS OF DISTRESS NOTED. BED IN LOWEST POSITION, CALL LIGHT WITHIN REACH. WILL CONTINUE TO MONITOR.
[2017-04-10] MEDS: HYDRAGUARD CREAM TP SCH ×2 (01:34→13:09)
[2017-04-10 04:00] VITALS: BP 134/65
--- NOTE | 2017-04-10 04:00 | NUR ---
VITAL SIGNS WITHIN NORMAL LIMITS. PT IN STABLE CONDITION, NO SIGNS OF DISTRESS NOTED. BED IN LOWEST POSITION, CALL LIGHT WITHIN REACH. WILL CONTINUE TO MONITOR.
[2017-04-10] MEDS: LEVOTHYROXINE 0.075 MG TAB PO SCH (06:21)
--- NOTE | 2017-04-10 06:21 | NUR ---
ADMINISTERED SCHEDULED MED, PT TOLERATED WELL. WILL CONTINUE TO MONITOR.
[2017-04-10] MEDS: ALBUTEROL SULFATE/IPRATROPIU 3 ML SOL IH SCH ×2 (06:30→13:15)
[2017-04-10] MEDS: BLOOD GLUCOSE MONITORING 1 DEV DEV FS SCH ×3 (06:34→16:31)
[2017-04-10 07:06] LABS: BASOPHILS # (AUTO) 0.2 K/uL (0.00-0.22); BASOPHILS % (AUTO) 1.2 % (0.0-2.0); EOSINOPHILS # (AUTO) 0.1 K/uL (0-0.4); EOSINOPHILS % (AUTO) 0.4 % (0.0-4.0); HEMATOCRIT 22.4 % (36-52); HEMOGLOBIN 7.2 g/dL (12.0-18.0); LYMPHOCYTES # (AUTO) 2.4 K/uL (2.0-11.5); LYMPHOCYTES % (AUTO) 18.7 % (20.5-51.1); MEAN CORPUSCULAR HEMOGLOBIN 29 pg (27-31); MEAN CORPUSCULAR HGB CONC 32 g/dL (33-37); MEAN CORPUSCULAR VOLUME 90 fL (80-94); MONOCYTES # (AUTO) 0.5 K/uL (0.8-1.0); MONOCYTES % (AUTO) 4.1 % (1.7-9.3); NEUTROPHILS # (AUTO) 9.8 K/uL (1.8-7.7); NEUTROPHILS % (AUTO) 75.6 % (42.2-75.2); PLATELET COUNT (AUTO) 477 K/uL (140-450); RED BLOOD CELL COUNT(AUTO) 2.51 MIL/uL (4.20-6.10); RED CELL DISTRIBUTION WIDTH 17.6 % (11.6-13.7)
[2017-04-10 07:15] LABS: ANION GAP 13.5 (8-16); CHLORIDE 92 mmol/L (98-107); GLUCOSE 117 mg/dL (74-106); POTASSIUM 4.5 mmol/L (3.5-5.1); SODIUM SERUM 132 mmol/L (136-145)
[2017-04-10 07:22] LABS: MAGNESIUM 1.6 mg/dL (1.8-2.4); PHOSPHORUS 5.1 mg/dL (2.5-4.9)
--- NOTE | 2017-04-10 07:32 | NUR ---
ENDORSED PT IN STABLE CONDITION TO DAY SHIFT SHIFT NURSE FOR CONTINUITY OF CARE.
[2017-04-10 07:39] LABS: UREA NITROGEN, BLOOD 97 mg/dL (7-18)
[2017-04-10 07:40] LABS: CREATININE 6.3 mg/dL (0.7-1.3)
[2017-04-10 08:00] VITALS: BP 149/77
--- NOTE | 2017-04-10 08:00 | NUR ---
Patient's Plan of Care was discussed and reviewed with SANDWICH BOARD CARRIER: SARIKA HOLLEY
[2017-04-10] MEDS: FERROUS SULFATE 325 MG TABEC PO SCH (08:32)
[2017-04-10] MEDS: CALCIUM ACETATE 667 MG TAB PO SCH ×2 (08:33→12:59)
[2017-04-10] MEDS ORDERED: EPOETIN ALFA 10,000 UNITS/ML VIAL SUBQ SCH (09:00)
--- NOTE | 2017-04-10 09:00 | NUR ---
WOUND CARE EVALUATION: REASON FOR EVALUATION: PRESSURE ULCER COMPLETE SKIN ASSESSMENT DONE ON THIS 76 Y/O MALE PATIENT ADMITTED TO [facility], WITH INITIAL DIAGNOSIS OF SYNCOPE AND CHEST PAIN. PAST MEDICAL HISTORY INCLUDE DIABETES,HTN, KESHIA WIT BIPAP, ESRD ON HD AND OBESITY. ALL ABOVE INFORMATION WAS OBTAINED FROM THE ADMISSION H&P AND PT. PT IS AAX4 LABS ARE WBC 13, H/H 7.2/22.4, GLUCOSE 117 AND ALBUMIN 1.8. SKIN WARM TO TOUCH WNL, TOENAILS ARE SLIGHTLY THICKENED, NO EDEMA,, WITH FEW HAIR GROWTH AND BILATERAL PEDAL PULSES PRESENT AND NORMAL. ON O2 NASAL CANNULA. PT. STATED HE IS BOWEL INCONTINENT. NEEDS ONE PERSON ASSISTANCE IN TURNING. INITIAL PLAN OF CARE AND PRESSURE PREVENTIVE MEASURES DISCUSSED WITH PATIENT AND PRIMARY RN . PT. ABLE TO VERBALIZE UNDERSTANDING. INTEGUMENTARY: BRUISES ON RIGHT UPPER ARM AND LEFT LOWER ABDOMEN LEFT BUTTOCK MOISTURE ASSOCIATE DERMATITIS - 3X2X0.1 CM, 100% PALE RED. PW MACERATION, NO ODOR. SACRALCOCCYX PRESSURE ULCER STAGE II- 2.5X2 CM SURROUNDING REDNESS 4X3 CM AND MOIST DIFFUSED TO LEFT BUTTOCK IAD BILATERAL KNEES OLD HEALED SURGICAL SCARS LEFT 3RD TOE WITH HX OF AMPUTATION RIGHT ANTERIOR LOWER LEG OLD HEALED SCAR FROM HX PVD BLE DRYNESS RECOMMENDATIONS: -SACRALCOCCYX PU CLEANSE WITH NS. PAT DRY, APPLY HYDROGEL COVER WITH OPTIFORM QD AND PRN IF SOILING -LEFT BUTTOCK MAD CLEANSE WITH MILD SOAP AND WATER, PAT DRY, APPLY Z GUARD BIDWC AND PRN WITH SOILING LEAVE OPEN TO AIR -TURN AND REPOSITION PATIENT Q2H TO LEFT AND RIGHT SIDE ONLY TO OFFLOAD SACRALCOCCYX AND BUTTOCKS, WITH THE EXCEPTION DURING MEALTIMES. -ASSESS AND MONITOR SKIN CONDITION DURING POSITION CHANGE, PLEASE PAY PARTICULAR ATTENTION TO SACRALCOCCYX, AND LEFT BUTTOCK -OFFLOAD BILATERAL HEELS BY PLACING PILLOWS UNDER CALVES AT ALL TIMES, UNLESS OTHERWISE CONTRAINDICATED -KEEP SKIN CLEAN AND DRY AT ALL TIMES. -PRESSURE REDISTRIBUTION SURFACE THERAPY. RECOMMENDATIONS DISCUSSED WITH PRIMARY RN WILL FOLLOW UP PATIENT Q7 DAYS AND PRN. PLEASE CONTACT [facility] FOR ANY CONCERNS, QUESTIONS AND CHANGES IN WOUND CONDITION. Addendum: 04/10/17 at 1502 by Bertram Almaraz RN (Grace) CORRECTION: RIGHT BUTTOCK MOISTURE ASSOCIATE DERMATITIS - 3X2X0.1 CM, 100% PALE RED. PW MACERATION, NO ODOR. LEFT BUTTOCK MOISTURE ASSOCIATE DERMATITIS HEALING PALE PINK WITH A VERY SUPERFICIAL SHINY SKIN LAYER IN PLACE.
--- NOTE | 2017-04-10 09:05 | NUR ---
WOUND CARE NURSE -JOY CAME FOR PT. WOUND EVAL AND TREATMENT.
[2017-04-10] MEDS: DOCUSATE SODIUM 250 MG GELCAP PO SCH (09:16)
[2017-04-10] MEDS: NYSTATIN 500 MU/5 ML UDC PO SCH ×2 (09:16→13:07)
[2017-04-10] MEDS: VIT-B COMP/VIT-C/FOLIC ACID 1 TAB PO SCH (09:16)
[2017-04-10] MEDS: LISINOPRIL 10 MG TAB PO SCH (09:17)
[2017-04-10] MEDS: FINASTERIDE 5 MG TAB PO SCH (09:17)
[2017-04-10] MEDS: ALLOPURINOL 100 MG TAB PO SCH (09:17)
[2017-04-10] MEDS: FAMOTIDINE 20 MG TAB PO SCH (09:18)
[2017-04-10] MEDS: BUMETANIDE 1 MG TAB PO SCH ×2 (09:18→13:07)
[2017-04-10] MEDS: LACTOBACILLUS RHAMNOSUS GG 1 EACH CAP PO SCH (09:18)
[2017-04-10] MEDS: POLYVINYL ALCOHOL 1.4% OP 15 ML SOL OP SCH ×2 (09:19→13:08)
[2017-04-10] MEDS: SKINTEGRITY HYDROGEL TP SCH (09:20)
[2017-04-10] MEDS: POLYETHYLENE GLYCOL 17 GM/PKT PO SCH (09:28)
[2017-04-10] MEDS: CHOLECALCIFEROL 1,000 IU TAB PO SCH (09:29)
--- NOTE | 2017-04-10 10:42 | NUR ---
PT CAME FOR PT. EVAL AND TREATMENT.
[2017-04-10] MEDS ORDERED: VANCOMYCIN 500 MG in DEXTROSE 5% 100 ML IV SCH (11:30)
[2017-04-10 12:00] VITALS: BP 154/80
[2017-04-10] MEDS: MUPIROCIN 2% OINT 22 GM TUBE TP SCH (13:08)
[2017-04-10] MEDS: CHLORHEXADINE GLUC 2% CLOTH TP SCH (13:08)
--- NOTE | 2017-04-10 13:30 | NUR ---
INFORMED PROCESS ARTIST -VIDA REGARDING [facility] D[facility].
--- NOTE | 2017-04-10 14:24 | NUR ---
CM NOTE PATIENT TRANSPORTATION SET UP [employer]/ RACHELE MONACO ([phone]) GOING TO [facility], RM 119A. REQUESTED 1350 SOFTWARE DEVELOPMENT TEST ENGINEER. JAYNE BALLARD MADE AWARE. Addendum: 04/10/17 at 1427 by Jordan Brown RN RACHELE REF# [id number]
--- NOTE | 2017-04-10 14:44 | NUR ---
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 PER PT, HE IS STILL NAUSEOUS, BUT IS ABLE TO EAT 100% OF HIS MEALS. NO UNINTENTIONAL WEIGHT LOSS NOTED. ENCOURAGED CONTINUING RENAL/DIABETIC DIET AT DISCHARGE. PT HAS ESRD ON HD AND IS FOLLOWED BY AN RD AT THE [facility]. ENCOURAGED ADDING FREE FOODS AND LEAN PROTEIN FOR SATIETY, PT STATED HE UNDERSTOOD AND AGREED.
--- NOTE | 2017-04-10 14:45 | NUR ---
CALLED [facility] SPOKE TO LUIS ENRIQUE RIOS AND GAVE PT. REPORT REGARDING D/C.
[2017-04-10 15:29] LABS: HEMATOCRIT 25.2 % (36-52); MEAN CORPUSCULAR HEMOGLOBIN 29 pg (27-31); MEAN CORPUSCULAR HGB CONC 32 g/dL (33-37); MEAN CORPUSCULAR VOLUME 90 fL (80-94); PLATELET COUNT (AUTO) 528 K/uL (140-450); RED BLOOD CELL COUNT(AUTO) 2.79 MIL/uL (4.20-6.10); RED CELL DISTRIBUTION WIDTH 18.5 % (11.6-13.7); WHITE BLOOD COUNT (AUTO) 13.8 K/uL (4.8-10.8)
[2017-04-10 15:52] LABS: EOSINOPHILS % (MANUAL) 1 % (0-4); LYMPHOCYTES % (MANUAL) 16 % (20-46); MONOCYTES % (MANUAL) 9 % (5-12)
[2017-04-10 16:00] VITALS: BP 148/87
--- NOTE | 2017-04-10 16:07 | NUR ---
D/C VIA GURNEY WITH MEDICAL TRANSPORTER. AWAKE, ALERT, AND ORIENTED X4. SPEECH CLEAR. NO C/O PAIN. NO SOB, NOTED. IN STABLE CONDITION. INFORMED CHARGE NURSE SANJAY FRY.
== END 2017-04-10 17:07 | disposition home or self-care (01) | DRG 871 ==
LOC: MED 14:09 → MIC 23:37 → MTU 04-08 18:00
PROVIDERS: ADMIT Family Medicine; ATTEND Family Medicine
PROC: 5A09357 Assistance with Respiratory Ventilation, Less than 24 Consecutive Hours, Continuous Positive Airway Pressure (ICD-10-PCS; 2017-04-06)
PROC: 5A1D70Z Performance of Urinary Filtration, Intermittent, Less than 6 Hours Per Day (ICD-10-PCS; principal; 2017-04-07)
PROC: 5A09357 Assistance with Respiratory Ventilation, Less than 24 Consecutive Hours, Continuous Positive Airway Pressure (ICD-10-PCS; 2017-04-08)
PROC: 5A1D70Z Performance of Urinary Filtration, Intermittent, Less than 6 Hours Per Day (ICD-10-PCS; 2017-04-09)
PROC: 30233N1 Transfusion of Nonautologous Red Blood Cells into Peripheral Vein, Percutaneous Approach (ICD-10-PCS; 2017-04-09)
DX: A41.9 Sepsis, unspecified organism (principal); J69.0 Pneumonitis due to inhalation of food and vomit; N17.0 Acute kidney failure with tubular necrosis; J96.21 Acute and chronic respiratory failure with hypoxia; E43 Unspecified severe protein-calorie malnutrition; D68.59 Other primary thrombophilia; R65.21 Severe sepsis with septic shock; I13.2 Hypertensive heart and chronic kidney disease with heart failure and with stage 5 chronic kidney disease, or end stage renal disease; E11.22 Type 2 diabetes mellitus with diabetic chronic kidney disease; I50.43 Acute on chronic combined systolic (congestive) and diastolic (congestive) heart failure; N18.6 End stage renal disease; J96.22 Acute and chronic respiratory failure with hypercapnia; J44.1 Chronic obstructive pulmonary disease with (acute) exacerbation; Z68.41 Body mass index [BMI] 40.0-44.9, adult; E66.2 Morbid (severe) obesity with alveolar hypoventilation; E11.51 Type 2 diabetes mellitus with diabetic peripheral angiopathy without gangrene; E11.65 Type 2 diabetes mellitus with hyperglycemia; G90.9 Disorder of the autonomic nervous system, unspecified; E03.9 Hypothyroidism, unspecified; M10.9 Gout, unspecified; S31.000A Unspecified open wound of lower back and pelvis without penetration into retroperitoneum, initial encounter; M19.90 Unspecified osteoarthritis, unspecified site; E83.39 Other disorders of phosphorus metabolism; E87.8 Other disorders of electrolyte and fluid balance, not elsewhere classified; E78.5 Hyperlipidemia, unspecified; N40.0 Benign prostatic hyperplasia without lower urinary tract symptoms; I25.10 Atherosclerotic heart disease of native coronary artery without angina pectoris; K21.9 Gastro-esophageal reflux disease without esophagitis; G47.419 Narcolepsy without cataplexy; G89.29 Other chronic pain; I27.20 Pulmonary hypertension, unspecified; F32.9 Major depressive disorder, single episode, unspecified; Z96.653 Presence of artificial knee joint, bilateral; Z96.619 Presence of unspecified artificial shoulder joint; F41.9 Anxiety disorder, unspecified; T44.7X5A Adverse effect of beta-adrenoreceptor antagonists, initial encounter; R00.1 Bradycardia, unspecified; I65.29 Occlusion and stenosis of unspecified carotid artery; D63.8 Anemia in other chronic diseases classified elsewhere; Z99.2 Dependence on renal dialysis; Z88.5 Allergy status to narcotic agent; Z88.0 Allergy status to penicillin; Z88.8 Allergy status to other drugs, medicaments and biological substances; Z79.82 Long term (current) use of aspirin; Z79.899 Other long term (current) drug therapy; Z98.61 Coronary angioplasty status; X58.XXXA Exposure to other specified factors, initial encounter; Y93.89 Activity, other specified; Y92.89 Other specified places as the place of occurrence of the external cause; Y99.8 Other external cause status; Z22.322 Carrier or suspected carrier of Methicillin resistant Staphylococcus aureus
CPT/HCPCS: 36415; 36600; 70450; 71045; 80048; 80053; 80202; 82150; 82272; 82550; 82803; 82948; 83036; 83605; 83690; 83735; 83874; 83880; 84100; 84439; 84443; 84484; 85025; 85610; 85730; 86886; 86900; 86901; 86920; 87040; 87081; 93005; 93880; 93925; 93970; 94640; 94660; 97110; 97116; 97140; 97530; A6248; J0885; J1644; J1815; J1956; J2920; J2930; J3370; J3420; J3490; J7030; J7060; J7620; P9016; Q0092; Q0163

== ENCOUNTER 2017-04-21 01:43 | Inpatient (IN) | payer OTHER, MEDICAID ==
[~2017-04-21] VITALS: Ht 165.1 cm; Wt 111.1 kg
[~2017-04-21 01:43] MED LIST: ALBU0.0912 INH; ALLO100T21 PO; ASPI81CT89 PO; BUME1TAB4 PO; CARB15SO23 OP; DOCU-299 PO; FERR325E14 PO; FINA5TAB1 PO; FISH10005 PO; LEVO0.155 PO; LIP80 PO; MIRABULK PO; MODA200T46 PO; NITR0.4T2 SL; NYST100022 PO; PHO667 PO; VITB12 PO; VITD1000 PO
--- NOTE | 2017-04-21 01:45 | NUR ---
PT. ANNIA TO ER BED 11
[2017-04-21 01:47] VITALS: BP 127/61
--- NOTE | 2017-04-21 01:47 | NUR ---
Patient being evaluated by physician at bedside.
--- NOTE | 2017-04-21 01:50 | NUR ---
76Y/M PT. BIBA FROM [facility] TO ED WITH C/O LOW H AND H. HX. ESRD ON HD, LAST HD YASEMIN, DM, HTN. LAST BS 121. PATIENT POSITIONED FOR COMFORT; HOB ELEVATED; BEDRAILS UP X2; BED DOWN. ER MD MADE AWARE OF PT STATUS.
[2017-04-21] MEDS ORDERED: NACL 0.9% 1,000 ML IV ONE (01:57)
[2017-04-21 02:25] LABS: PLATELET COUNT (AUTO) 483 K/uL (140-450); RED BLOOD CELL COUNT(AUTO) 1.08 MIL/uL (4.20-6.10)
[2017-04-21 02:27] LABS: MEAN CORPUSCULAR HEMOGLOBIN 31 pg (27-31); MEAN CORPUSCULAR HGB CONC 31 g/dL (33-37); MEAN CORPUSCULAR VOLUME 100 fL (80-94); RED CELL DISTRIBUTION WIDTH 19.7 % (11.6-13.7); WHITE BLOOD COUNT (AUTO) 17.9 K/uL (4.8-10.8)
--- NOTE | 2017-04-21 02:30 | NUR ---
IV 20GA TO LT A/C, 1 SET OF BLOOD FOR C&S SENT TO LAB.
--- NOTE | 2017-04-21 02:31 | NUR ---
LAB AT BEDSIDE 2ND SET OF BLOOD FOR C&S SENT TO LAB. EKG DONE
[2017-04-21 02:35] LABS: HEMATOCRIT 10.8 % (36-52); HEMOGLOBIN 3.4 g/dL (12.0-18.0)
[2017-04-21 02:38] LABS: EOSINOPHILS % (MANUAL) 4 % (0-4); LYMPHOCYTES % (MANUAL) 31 % (20-46); MONOCYTES % (MANUAL) 3 % (5-12)
[2017-04-21 02:42] LABS: PROTHROMBIN TIME 11.7 secs (10.8-13.4)
[2017-04-21 02:52] LABS: ALBUMIN 2.1 g/dL (3.4-5.0); ANION GAP 17.1 (8-16); ASPARTATE AMINOTRANSFERASE 12 U/L (15-37); CARBON DIOXIDE 30.2 mmol/L (21-32); CHLORIDE 99 mmol/L (98-107); GLUCOSE 102 mg/dL (74-106); LIPASE 88 U/L (73-393); POTASSIUM 5.3 mmol/L (3.5-5.1); SODIUM SERUM 141 mmol/L (136-145); TOTAL BILIRUBIN 0.3 mg/dL (0.0-1.0)
[2017-04-21 02:54] LABS: CREATININE 8.1 mg/dL (0.7-1.3); UREA NITROGEN, BLOOD 133 mg/dL (7-18)
[2017-04-21] MEDS ORDERED: SODIUM POLYSTYRENE 15 GM/60 ML UDBTL PO ONE (03:25)
[2017-04-21] MEDS ORDERED: MORPHINE SULFATE 2 MG/ML SYR IVP PRN (03:35)
[2017-04-21] MEDS ORDERED: ACETAMINOPHEN 325 MG TAB PO PRN (03:35)
[2017-04-21] MEDS ORDERED: ONDANSETRON 4 MG/2 ML VIAL IM/IVP PRN (03:35)
[2017-04-21] MEDS ORDERED: HYDROcodone/APAP 7.5/325 MG 1 TAB PO PRN (03:35)
[2017-04-21] MEDS ORDERED: DOCUSATE SODIUM 100 MG GELCAP PO PRN (03:35)
[2017-04-21 04:00] VITALS: BP 152/85
--- NOTE | 2017-04-21 04:00 | NUR ---
ADMITTED PATIENT INTO MED-SURG UNIT, PATIENT AWAKE, ORIENTED X2, ABLE TO FOLLOW SIMPLE INSTRUCTION, NO S/S OF DISTRESS NOTED, RESPIRATION EVEN AND UNLABORED. IV 20G ON LT AC AND IV 2O G ON EJ, BOTH PATENT AND INTACT, DIALYSIS ACCESS NOTED ON THE LEFT UPPER CHEST. SKIN TEARS NOTED ON THE SACRAL AREA. PATIENT IS ABLE TO TURN HIMSELF IN THE BED. PLAN OF CARE DISCUSSED, CALL LIGHT WITHIN REACH, SAFETY MEASURE ENSURED, WILL CONTINUE TO MONITOR.
--- NOTE | 2017-04-21 04:01 | NUR ---
Patient will be admitted to care of dr. mckinney. Admited to tele floor. Will go to room 114. Belongings list completed. Report to lynnette lowe.
[2017-04-21] MEDS: ACETAMINOPHEN 325 MG TAB PO SCH ×3 (04:28→13:37)
--- NOTE | 2017-04-21 04:30 | NUR ---
DR. SOTO CAME AND EXAMINED THE PATIENT AT THE BEDSIDE.
[2017-04-21 04:50] LABS: CHOL/HDL RATIO 5.3 (1-4.5); FREE T4 (FREE THYROXINE) 0.96 ng/dL (0.76-1.46); MAGNESIUM 2.3 mg/dL (1.8-2.4); PHOSPHORUS 5.6 mg/dL (2.5-4.9); THYROID STIMULATING HORMONE 3.87 uIU/mL (0.34-3.74)
--- NOTE | 2017-04-21 05:10 | NUR ---
FIRST UNIT OF BLOOD TRANSFUSION STARTED, PATIENT TOLERATED WELL. WILL CONTINUE TO MONITOR.
[2017-04-21] MEDS ORDERED: ALBUTEROL SULFATE/IPRATROPIU 3 ML SOL IH PRN (05:40)
[2017-04-21] MEDS: LEVOTHYROXINE 0.075 MG TAB PO SCH (06:41)
--- NOTE | 2017-04-21 07:05 | NUR ---
RECEIVED PATIENT REPORT AT BEDSIDE. PATIENT AWAKE BUT CONFUSED. PATIENT ORIENTED ONLY TO SELF. NO S/S OF DISTRESS NOTED. BLOOD TRANSFUSION CURRENTLY IN PROGRESS. PATIENT ON ROOM AIR. O2 SAT 97% AT THIS TIME. NO SOB. PATIENT ON TELE MONITORING. BED LOWERED WITH CALL LIGHT WITHIN REACH. WILL CONTINUE TO MONITOR
--- NOTE | 2017-04-21 07:15 | NUR ---
ENDORSED PLAN OF CARE TO DAY SHIFT RN, PATIENT RESTING IN BED, IN STABLE CONDITION.
[2017-04-21] MEDS: ALBUTEROL SULFATE/IPRATROPIU 3 ML SOL IH SCH ×3 (07:36→19:06)
[2017-04-21 08:00] VITALS: BP 158/72
[2017-04-21] MEDS ORDERED: FERROUS SULFATE 325 MG TABEC PO SCH (08:00)
--- NOTE | 2017-04-21 08:00 | NUR ---
BLOOD TRANSFUSION DONE. TEMP 97.1 BP 158/72 HR 67 O2 SAT 975 ON ROOM AIR. NO S/S OF DISTRESS NOTED
[2017-04-21 08:22] LABS: ANION GAP 16.9 (8-16); CARBON DIOXIDE 29.1 mmol/L (21-32); CHLORIDE 100 mmol/L (98-107); GLUCOSE 110 mg/dL (74-106); SODIUM SERUM 141 mmol/L (136-145)
[2017-04-21 08:32] LABS: UREA NITROGEN, BLOOD 129 mg/dL (7-18)
[2017-04-21 08:33] LABS: CREATININE 8.3 mg/dL (0.7-1.3)
[2017-04-21 08:38] LABS: BASOPHILS # (AUTO) 0.5 K/uL (0.00-0.22); BASOPHILS % (AUTO) 3.2 % (0.0-2.0); EOSINOPHILS # (AUTO) 0.2 K/uL (0-0.4); EOSINOPHILS % (AUTO) 1.4 % (0.0-4.0); LYMPHOCYTES # (AUTO) 3.6 K/uL (2.0-11.5); LYMPHOCYTES % (AUTO) 22.1 % (20.5-51.1); MEAN CORPUSCULAR HEMOGLOBIN 31 pg (27-31); MEAN CORPUSCULAR HGB CONC 32 g/dL (33-37); MEAN CORPUSCULAR VOLUME 98 fL (80-94); MONOCYTES # (AUTO) 0.8 K/uL (0.8-1.0); MONOCYTES % (AUTO) 5.1 % (1.7-9.3); NEUTROPHILS % (AUTO) 68.2 % (42.2-75.2); PLATELET COUNT (AUTO) 462 K/uL (140-450); RED BLOOD CELL COUNT(AUTO) 1.13 MIL/uL (4.20-6.10); RED CELL DISTRIBUTION WIDTH 22.3 % (11.6-13.7); WHITE BLOOD COUNT (AUTO) 16.1 K/uL (4.8-10.8)
[2017-04-21 08:39] LABS: HEMATOCRIT 11.1 % (36-52); HEMOGLOBIN 3.5 g/dL (12.0-18.0)
[2017-04-21] MEDS: POLYETHYLENE GLYCOL 17 GM/PKT PO SCH (09:00)
[2017-04-21] MEDS ORDERED: ASPIRIN 81 MG TAB.CHEW PO SCH (09:00)
[2017-04-21] MEDS: DOCUSATE SODIUM 100 MG GELCAP PO SCH ×2 (09:00→21:00)
--- NOTE | 2017-04-21 09:08 | NUR ---
PATIENT HAS BEEN SCREENED AND CATEGORIZED HIGH NUTRITION RISK. PATIENT WILL BE SEEN WITHIN 1-2 DAYS OF ADMISSION. 04/21/17-04/22/[address]
--- NOTE | 2017-04-21 10:25 | NUR ---
SECOND UNIT OF BLOOD TRANSFUSION INITIATED
[2017-04-21] MEDS: ALLOPURINOL 100 MG TAB PO SCH (10:51)
[2017-04-21] MEDS: ZINC SULF 220 MG CAP PO SCH (10:52)
[2017-04-21] MEDS: FUROSEMIDE 20 MG TAB PO SCH ×2 (10:52→13:37)
[2017-04-21] MEDS: FINASTERIDE 5 MG TAB PO SCH (10:52)
[2017-04-21] MEDS: ASCORBIC ACID 500 MG TAB PO SCH (10:52)
[2017-04-21] MEDS: CALCIUM ACETATE 667 MG TAB PO SCH ×3 (10:53→17:00)
[2017-04-21] MEDS: BUMETANIDE 1 MG TAB PO SCH (10:54)
[2017-04-21] MEDS ORDERED: LACTULOSE 20 GM/30 ML UDC PO SCH (11:42)
[2017-04-21] MEDS ORDERED: LORazepam 2 MG/ML VIAL IVP PRN (12:50)
--- NOTE | 2017-04-21 13:20 | NUR ---
TRANSFUSION OF SECOND UNIT OF PRBC DONE. TEMP 97.3 BP:163/74 HR: 64 O2 SAT97% ON 2L O2
--- NOTE | 2017-04-21 13:40 | NUR ---
PATIENT AGITATED AND RESTLESS. PRN ATIVAN ADMINISTERED
--- NOTE | 2017-04-21 13:45 | NUR ---
THIRD UNIT OF PRBC TRANSFUSION STARTED BY DIALYSIS NURSE WHILE HEMODIALYSIS IS IN PROGRESS.
--- NOTE | 2017-04-21 14:30 | NUR ---
THIRD UNIT OF PRBC TRANSFUSION DONE. PATIENT ASLEEP. TEMP 97.3 HR:79 BP: 168/88
--- NOTE | 2017-04-21 14:45 | NUR ---
FOURTH UNIT OF PRBC TRANSFUSION STARTED BY DIALYSIS NURSE. HEMODIALYSIS STILL IN PROGRESS
--- NOTE | 2017-04-21 15:07 | NUR ---
WOUND CARE PENDING, PT IS ON HD. PRIMARY RN NOTIFIED
--- NOTE | 2017-04-21 15:30 | NUR ---
BLOOD TRANSFUSION DONE. PATIENT IS ASLEEP. NO S/S OF DISTRESS. TEMP 97.2 HR:89 BP 182/72 O2 SAT:98% ON 2L. DR RUSSELL NOTIFIED
--- NOTE | 2017-04-21 15:45 | NUR ---
HEMODIALYSIS DONE. 2.7L TAKEN OUT. BP 157/81 HR 94 O2 SAT: 98% ON 2L O2
--- NOTE | 2017-04-21 15:50 | NUR ---
PATIENT UNABLE TO GIVE CONSENT FOR EGD. NO FAMILY MEMBER ON FILE. SNF/ REHAB WHERE PATIENT CAME FROM WAS CONTACTED BUT THEY DONT HAVE FAMILY MEMBERS CONTACT INFO ON FILE EITHER. DR HERNADEZ AND DR RUSSELL SIGNED CONSENT FOR THE PROCEDURE
[2017-04-21 16:00] VITALS: BP 163/90
--- NOTE | 2017-04-21 16:00 | NUR ---
PATIENT LEFT THE UNIT FOR EGD
[2017-04-21] MEDS ORDERED: fentaNYL 0.05 MG/ML VIAL ONE (16:07)
[2017-04-21] MEDS ORDERED: MIDAZOLAM 2 MG/2 ML VIAL ONE (16:07)
--- NOTE | 2017-04-21 16:50 | NUR ---
PATIENT BACK FOR EGD. PATIENT SEDATED AND ASLEEP. BP 148/62 HR 91 O2 SAT 93% ON 2L. NO S/S OF DISTRESS NOTED
[2017-04-21] MEDS: SENNA 8.6 MG TAB PO SCH (17:00)
[2017-04-21] MEDS: hydrALAZINE 10 MG TAB PO SCH (17:00)
[2017-04-21] MEDS: ISOSORBIDE DINITRATE 10 MG TAB PO SCH (17:00)
[2017-04-21 17:21] LABS: BASOPHILS # (AUTO) 0.1 K/uL (0.00-0.22); BASOPHILS % (AUTO) 0.7 % (0.0-2.0); EOSINOPHILS # (AUTO) 0.3 K/uL (0-0.4); EOSINOPHILS % (AUTO) 2.2 % (0.0-4.0); HEMOGLOBIN 7.9 g/dL (12.0-18.0); LYMPHOCYTES # (AUTO) 2.8 K/uL (2.0-11.5); LYMPHOCYTES % (AUTO) 22.2 % (20.5-51.1); MEAN CORPUSCULAR HEMOGLOBIN 28 pg (27-31); MEAN CORPUSCULAR HGB CONC 32 g/dL (33-37); MEAN CORPUSCULAR VOLUME 88 fL (80-94); MONOCYTES # (AUTO) 0.6 K/uL (0.8-1.0); MONOCYTES % (AUTO) 5.1 % (1.7-9.3); NEUTROPHILS # (AUTO) 8.8 K/uL (1.8-7.7); NEUTROPHILS % (AUTO) 69.8 % (42.2-75.2); PLATELET COUNT (AUTO) 422 K/uL (140-450); RED BLOOD CELL COUNT(AUTO) 2.84 MIL/uL (4.20-6.10); RED CELL DISTRIBUTION WIDTH 17.4 % (11.6-13.7); WHITE BLOOD COUNT (AUTO) 12.6 K/uL (4.8-10.8)
[2017-04-21] MEDS ORDERED: MIDAZOLAM 2 MG/2 ML VIAL IVP ONE (18:00)
[2017-04-21] MEDS ORDERED: fentaNYL 0.05 MG/ML VIAL IVP ONE (18:00)
--- NOTE | 2017-04-21 18:00 | NUR ---
NOTIFIED DR SOTO ABOUT PATIENT'S BP AND THAT PATIENT IS UNABLE TO SWALLOW SCHEDULED PO MEDICATIONS AT THE MOMENT. DR CASEY PUT ORDERS
[2017-04-21] MEDS ORDERED: METOPROLOL 5 MG/5 ML VIAL IV SCH (18:10)
--- NOTE | 2017-04-21 19:20 | NUR ---
PATIENT REPORT GIVEN AT BEDSIDE. PATIENT ASLEEP, CURRENTLY RECEIVING BREATHING TX
--- NOTE | 2017-04-21 19:21 | NUR ---
RECEIVED HANDOFF REPORT FROM AM RN. PATIENT IS RESTING IN BED. PATIENT RESPONDS TO TOUCH BUT DOES NOT OPEN EYES. PATIENT WILL GRUNT AND MOAN IN RESPONSE TO HIS NAME, WILL RE ASSESS LOC. PATIENT HAS 2 IV SITES, BOTH PATENT AND INTACT. PATIENT VITAL SIGNS WNL PATIENT HAS 2L O2 NC PATENT AND INTACT. SAFETY PRECAUTIONS ARE IN PLACE. CONTACT PRECAUTIONS ARE IN PLACE. NO SIGNS OR SYMPTOMS OF ACUTE DISTRESS NOTED. CALL LIGHT WITHIN REACH. WILL CONTINUE TO MONITOR.
[2017-04-21 20:00] VITALS: BP 162/54
[2017-04-21] MEDS ORDERED: PANTOPRAZOLE 40 MG INJ VIAL IVP SCH (21:00)
[2017-04-21] MEDS: LACTULOSE 20 GM/30 ML UDC PO SCH (21:00)
[2017-04-21] MEDS: ATORVASTATIN 80 MG TAB PO SCH (21:00)
--- NOTE | 2017-04-21 21:13 | NUR ---
PATIENT IS STILL SEDATED. RESPONDS TO LIGHT TOUCH AND GRUNTS WHEN NAME IS CALLED. PO MEDS HELD DUE TO LOC. DR AWARE. PATIENTS VITAL SIGNS ARE WNL. NO SIGNS OR SYMPTOMS OF ACUTE DISTRESS NOTED. CALL LIGHT WITHIN REACH. WILL CONTINUE TO MONITOR.
--- NOTE | 2017-04-21 21:54 | NUR ---
REPORT GIVEN TO RORY SCHAFER. PATIENT STILL SEDATE.D PATIENT LOC IS RESPONSIVE TO LIGHT SHAKING AND NAME BUT STILL DOES NOT OPEN EYES. NO SIGNS OR SYMPTOMS OF ACUTE DISTRESS NOTED. CALL LIGHT WITHIN REACH. IS AWARE OF PATIENT CONDITION.
--- NOTE | 2017-04-21 21:55 | NUR ---
RECEIVED REPORT FROM NATY SCHAFER, PT STILL SEDATED, NON RESPONSIVE TO LIGHT SHAKING AND NAME, RESPONSIVE TO PAIN, NO DISTRESS NOTED, DR. SOTO AWARE. PT CURRENTLY SOUND ASLEEP, NC 2LPM O2, NO SOB. CALL LIGHT WITHIN REACH, WILL CONTINUE TO MONITOR.
--- NOTE | 2017-04-21 22:49 | NUR ---
CHECKED ON PT, PT SLEEPING, RESTLESS, NO DISTRESS NOTED, CALL LIGHT WITHIN REACH, WILL CONTINUE TO MONITOR.
--- NOTE | 2017-04-21 23:55 | NUR ---
CHECKED ON PT, PT SLEEPING NO DISTRESS NOTED, BP 165/78, DR. SOTO AWARE OF PT ELEVATED BP, WILL CONTINUE TO MONITOR.
[2017-04-22 00:05] VITALS: BP 165/78
--- NOTE | 2017-04-22 02:18 | NUR ---
CHECKED ON PT, PT AWAKE, RESPONSIVE TO NAME, REPOSITIONED PT, PT STABLE, NO DISTRESS NOTED, CALL LIGHT WITHIN REACH, WILL CONTINUE TO MONITOR.
--- NOTE | 2017-04-22 03:57 | NUR ---
CHECKED ON PT, PT STABLE, NO DISTRESS NOTED, CHECKED V/S, BP 170/92 HR 102, NOTIFIED DR. CHARLES DR. STATED UNDERSTANDING. WILL CONTINUE TO MONITOR PT.
[2017-04-22 04:00] VITALS: BP 170/92
[2017-04-22 06:26] LABS: T4 (THYROXINE) 5.3 ug/dL (4.5-12.0)
[2017-04-22] MEDS: ALBUTEROL SULFATE/IPRATROPIU 3 ML SOL IH SCH ×3 (06:26→18:51)
--- NOTE | 2017-04-22 06:26 | NUR ---
PT SLEEPING WITH NO SIGNS OF DISTRESS NOTED AT THIS TIME, NO HHN GIVEN PT ON 2LNC
--- NOTE | 2017-04-22 06:26 | NUR ---
PT SLEEPING NO HHN GIVEN NO SIGNS OF DISTRESS NOTED
[2017-04-22] MEDS: LEVOTHYROXINE 0.075 MG TAB PO SCH (06:32)
--- NOTE | 2017-04-22 06:32 | NUR ---
ADMINISTER MEDICATION PER MD ORDER, PT TOLERATED WELL, NO DISTRESS NOTED, CALL LIGHT WITHIN REACH, WILL CONTINUE TO MONITOR.
--- NOTE | 2017-04-22 07:22 | NUR ---
ENDROSED PLAN OF CARE TO DAY SHIFT NURSE CAREN RN, PT STABLE, NO DISTRESS NOTED.
--- NOTE | 2017-04-22 07:23 | NUR ---
RECEIVED REPORT AT BEDSIDE FOR CONTINUITY OF CARE FROM BOBBIN TRUCKER NURSE. PATIENT LETHARGIC AND EASILY WOKEN. NO ACUTE DISTRESS NOTED. PT WITH PATENT IV TO LEFT AC 20G SL. CALL LIGHT WITHIN REACH. BED IN LOW POSITION. WILL CONT TO MONITOR PT.
[2017-04-22] MEDS ORDERED: FAMOTIDINE 20 MG/2 ML VIAL IV SCH (09:00)
--- NOTE | 2017-04-22 09:30 | NUR ---
PT DROWSY BUT EASILY WOKEN.OPENS EYES TO NAME BEING CALLED. NO ACUTE DISTRESS NOTED. BED IN LOW POSITION. CONT ON CONTACT PRECAUTIONS. CALL LIGHT WITHIN REACH. WILL CONT TO MONITOR PT.
--- NOTE | 2017-04-22 09:30 | NUR ---
04/22/17 RD INITIAL ASSESSMENT COMPLETED PLEASE REFER TO NUTRITION ASSESSMENT UNDER CARE ACTIVITY FOR ESTIMATED NUTRITIONAL NEEDS. RD RECOMMENDATIONS: 1- RECOMMEND CONTINUE FULL LIQUID DIET. 2- WHEN MEDICALLY CLEARED TO ADVANCE DIET, RECOMMEND RENAL DIET. 3- FOLLOW UP 2-3 DAYS; HIGH RISK KARSON VILLATORO MBA, RD
[2017-04-22 10:34] VITALS: BP 165/86
[2017-04-22] MEDS: BUMETANIDE 1 MG TAB PO SCH (10:36)
[2017-04-22] MEDS: SENNA 8.6 MG TAB PO SCH ×3 (10:38→17:38)
[2017-04-22] MEDS: CALCIUM ACETATE 667 MG TAB PO SCH ×3 (10:39→17:38)
[2017-04-22] MEDS: ASCORBIC ACID 500 MG TAB PO SCH (10:39)
[2017-04-22] MEDS: hydrALAZINE 10 MG TAB PO SCH ×3 (10:40→17:38)
[2017-04-22] MEDS: ZINC SULF 220 MG CAP PO SCH (10:40)
[2017-04-22] MEDS: FINASTERIDE 5 MG TAB PO SCH (10:41)
[2017-04-22] MEDS: ALLOPURINOL 100 MG TAB PO SCH (10:42)
[2017-04-22] MEDS: DOCUSATE SODIUM 100 MG GELCAP PO SCH ×2 (10:42→21:15)
[2017-04-22] MEDS: ISOSORBIDE DINITRATE 10 MG TAB PO SCH ×3 (10:42→17:38)
[2017-04-22] MEDS: LACTULOSE 20 GM/30 ML UDC PO SCH ×3 (10:43→21:15)
[2017-04-22] MEDS: POLYETHYLENE GLYCOL 17 GM/PKT PO SCH ×3 (10:43→21:15)
--- NOTE | 2017-04-22 11:15 | NUR ---
PROVIDED PATIENT WITH PERICARE. TURNED AND REPOSITIONED. PATIENT TOLERATED WELL. WILL CONT TO MONITOR PT.
[2017-04-22 11:59] VITALS: BP 144/73
[2017-04-22] MEDS ORDERED: Z-GUARD PASTE TP PRN (12:25)
--- NOTE | 2017-04-22 12:55 | NUR ---
ADMINISTERED SCHEDULED MEDICATIONS . PATIENT TOLERATED WELL. PATIENT BEING ASSISTED WITH MEALS. NO ACUTE DISTRESS NOTED. 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 WILL CONT TO MONITOR.
[2017-04-22] MEDS ORDERED: LORazepam 2 MG/ML VIAL IVP PRN (14:25)
--- NOTE | 2017-04-22 14:30 | NUR ---
DR ASHFORD IN UNIT TO SEE PATIENT. WITH NEW ORDER FOR ATIVAN 1MG IVP Q6HRS PRN ANXIETY. PATIENT ASLEEP IN BED . EASILY WOKEN. NO ACUTE DISTRESS NOTED. BED IN LOW [id number]. CALL LIGHT WITHIN REACH. WILL CONT TO MONITOR PT.
--- NOTE | 2017-04-22 15:00 | NUR ---
WEB SITE DESIGNER IN TO DRAW BLOOD. PATIENT REFUSED SHOUTING "NO!!!" . EXPLAINED RISKS AND BENEFITS . PATIENT CONT TO REFUSE.
[2017-04-22 15:36] LABS: FOLIC ACID 16.6 ng/mL (>3.0)
--- NOTE | 2017-04-22 15:39 | NUR ---
RECEIVED ORDER FOR PT EVALUATION. ATTEMPTED TO SEE PATIENT AT 1535, HOWEVER, PATIENT HAD JUST BEEN CLEANED AND TURNED AND FELL ASLEEP. SPOKE WITH HANH JAUREGUI, REGARDING STATUS AND WHETHER EVALUATION ACTIVITIES ARE APPROPRIATE AT THIS TIME. PATIENT WAS EARLIER AGITATED. HAD RECEIVED 4 UNITS TRANSFUSION. JOINT DECISION WAS MADE TO PLAN PT EVAL TO BE COMPLETED Monday04/24/17 SO THAT PATIENT CAN ACTIVELY PARTICIPATE. PVE.
[2017-04-22] MEDS ORDERED: MAGNESIUM CITRATE 300 ML BTL PO SCH (16:05)
[2017-04-22 17:36] VITALS: BP 167/75
--- NOTE | 2017-04-22 17:38 | NUR ---
ADMINISTERED MEDICATIONS SCHEDULED PATIENT TOLERATED WELL. PT ALERT AND ABLE TO MAKE NEEDS KNOWN. NO ACUTE DISTRESS NOTED. WILL CONT TO MONITOR PT.
[2017-04-22 18:03] LABS: BASOPHILS % (AUTO) 0.4 % (0.0-2.0); EOSINOPHILS # (AUTO) 0.3 K/uL (0-0.4); EOSINOPHILS % (AUTO) 2.7 % (0.0-4.0); LYMPHOCYTES # (AUTO) 2.5 K/uL (2.0-11.5); LYMPHOCYTES % (AUTO) 22.8 % (20.5-51.1); MEAN CORPUSCULAR HEMOGLOBIN 28 pg (27-31); MEAN CORPUSCULAR HGB CONC 32 g/dL (33-37); MEAN CORPUSCULAR VOLUME 89 fL (80-94); MONOCYTES # (AUTO) 0.5 K/uL (0.8-1.0); MONOCYTES % (AUTO) 4.5 % (1.7-9.3); NEUTROPHILS # (AUTO) 7.5 K/uL (1.8-7.7); NEUTROPHILS % (AUTO) 69.6 % (42.2-75.2); PLATELET COUNT (AUTO) 383 K/uL (140-450); RED BLOOD CELL COUNT(AUTO) 2.48 MIL/uL (4.20-6.10); WHITE BLOOD COUNT (AUTO) 10.8 K/uL (4.8-10.8)
[2017-04-22 18:21] LABS: ANION GAP 13.3 (8-16); CARBON DIOXIDE 28.2 mmol/L (21-32); CHLORIDE 107 mmol/L (98-107); GLUCOSE 120 mg/dL (74-106); POTASSIUM 4.5 mmol/L (3.5-5.1); SODIUM SERUM 144 mmol/L (136-145)
[2017-04-22 18:26] LABS: CREATININE 6.6 mg/dL (0.7-1.3); UREA NITROGEN, BLOOD 77 mg/dL (7-18)
[2017-04-22 18:28] LABS: MAGNESIUM 1.9 mg/dL (1.8-2.4)
--- NOTE | 2017-04-22 19:25 | NUR ---
ENDORSED REPORT TO LANGUAGE TRANSLATOR NURSE AT BEDSIDE FOR CONTINUITY OF CARE. PATIENT STABLE.
--- NOTE | 2017-04-22 19:35 | NUR ---
RECEIVED REPORT FROM AM NURSE. PT RESTING IN BED, AOX3, CONFUSED AND FORGETFUL AT TIMES, ABLE TO FOLLOW COMMANDS, ABLE TO VERBALIZE NEEDS, BEDREST AT THIS TIME. CLINICAL IMMUNOLOGIST IN PLACE. PT DENIES PAIN OR SOB. PT HAS L CHEST TUNNELED CATH. IV ACCESS TO L AC SEEN DISLODGED AT THIS TIME, WILL INSERT NEW IV LATER. DISCUSSED AND REVIEWED PLAN OF CARE WITH PT, PT REORIENTED, WILL CONTINUE WITH CONSTANT REINFORCEMENT. PT HAD SMALL AMOUNT OF DARK BROWN LOOSE/LIQUID BM, PT CLEANED, TURNED AND REPOSITIONED, OFFLOADED PRESSURE AREAS. SACRAL DRESSING CHANGED. ALL NEEDS MET. SAFETY MEASURES ENSURED. CALL LIGHT WITHIN REACH.
[2017-04-22 20:00] VITALS: BP 141/77
[2017-04-22] MEDS: ATORVASTATIN 80 MG TAB PO SCH (21:15)
[2017-04-22] MEDS: FAMOTIDINE 20 MG/2 ML VIAL IV SCH (21:15)
--- NOTE | 2017-04-22 21:15 | NUR ---
ATTEMPTED TO INSERT IV ACCESS, UNSUCCESSFUL AFTER 2 TRIES, UNABLE TO ADMINISTERED DUE MED PEPCID IVP AT THIS TIME. CALLED PROPERTY CONTROLLER TO ASSIST WITH IV INSERT. ADMINISTERED REMAINING DUE PO MEDS AT THIS TIME, PT VERBALIZED UNDERSTANDING, ABLE TO TOLERATED MEDICATIONS. PT HAD SMALL AMOUNT OF LOOSE DARK BROWN/BLACK BM, PT CLEANED, TURNED AND REPOSITIONED, OFFLOADED PRESSURE AREAS. ALL NEEDS MET. IVF INFUSING WELL. SAFETY MEASURES ENSURED. CALL LIGHT WITHIN REACH.
[2017-04-23] VITALS: BP 166/90
--- NOTE | 2017-04-23 00:40 | NUR ---
PT HAS SMALL AMOUNT LOOSE DARK BROWN/BLACK STOOL, PT CLEANED, TURNED AND REPOSITIONED, OFFLOADED PRESSURE AREAS WITH ARCH SUPPORT MAKER. PT RESTING COMFORTABLY, SPO2 99% ON BIPAP, RR 22 EVEN AND UNLABORED AT BASELINE. SPOKE WITH DR HERNANDEZ, DISCUSSED THAT PT IS HAVING COLONOSCOPY WITH DR HERNADEZ AND ONLY HAD TWO SMALL AMOUNT OF DARK STOOL AT THIS TIME, PT HAD MIRALAX X3, LACTULOSE X2, COLACE X2, AND MAG CITRATE X1, PT DOES NOT HAVE BOWEL CLEANSE PREP. NO NEW ORDERS AT THIS TIME, INSTRUCTED TO MONITOR AT THIS TIME.
[2017-04-23] MEDS: FAMOTIDINE 20 MG/2 ML VIAL IV SCH ×2 (01:34→09:21)
--- NOTE | 2017-04-23 01:34 | NUR ---
DRYER OPERATOR ABLE TO INSERT NEW IV ON L HAND 22G, IV ACCESS WRAPPED IN KERLIX GAUZE, PT TOLERATED WELL. ADMINISTERED PT'S PAST DUE MED PEPCID IVP PER DR CARLOS. PT RESTING COMFORTABLY, SPO2 100% ON BIPAP, RR 22 EVEN AND UNLABORED, HR 90. ALL NEEDS MET. SAFETY MEASURES ENSURED. CALL LIGHT WITHIN REACH.
--- NOTE | 2017-04-23 01:45 | NUR ---
SPOKE WITH DR CARLOS, MADE AWARE THAT NEW IV ACCESS WAS ESTABLISHED AND PEPCID IVP WAS GIVEN. ALSO MADE MD AWARE OF BP 166/90 WITH PAST TRENDS AROUND THE SAME BP, PT TAKES APRESOLINE PO TID, ISORDIL PO TID AND BUMEX PO DAILY. NO NEW ORDERS AT THIS TIME, INSTRUCTED TO MONITOR.
[2017-04-23 04:00] VITALS: BP 163/79
--- NOTE | 2017-04-23 04:30 | NUR ---
PT AHD LARGE AMOUNT LIQUID DARK GREEN BM AT THIS TIME, PT CLEANED, TURNED AND REPOSITIONED BY CNAS, PT TOLERATED WELL. WOUND CARE PERFORMED, SACRAL DRESSING CHANGED. ALL NEEDS MET. SAFETY MEASURES ENSURED. CALL LIGHT WITHIN REACH.
[2017-04-23] MEDS: ALBUTEROL SULFATE/IPRATROPIU 3 ML SOL IH SCH ×3 (06:29→19:27)
[2017-04-23] MEDS: LEVOTHYROXINE 0.075 MG TAB PO SCH (06:51)
[2017-04-23 06:58] LABS: BASOPHILS # (AUTO) 0.1 K/uL (0.00-0.22); BASOPHILS % (AUTO) 1.1 % (0.0-2.0); EOSINOPHILS # (AUTO) 0.2 K/uL (0-0.4); EOSINOPHILS % (AUTO) 2.4 % (0.0-4.0); HEMATOCRIT 23.1 % (36-52); HEMOGLOBIN 7.4 g/dL (12.0-18.0); LYMPHOCYTES # (AUTO) 2.3 K/uL (2.0-11.5); LYMPHOCYTES % (AUTO) 22.6 % (20.5-51.1); MEAN CORPUSCULAR HEMOGLOBIN 29 pg (27-31); MEAN CORPUSCULAR HGB CONC 32 g/dL (33-37); MEAN CORPUSCULAR VOLUME 90 fL (80-94); MONOCYTES # (AUTO) 0.6 K/uL (0.8-1.0); MONOCYTES % (AUTO) 5.5 % (1.7-9.3); NEUTROPHILS # (AUTO) 7.1 K/uL (1.8-7.7); NEUTROPHILS % (AUTO) 68.4 % (42.2-75.2); PLATELET COUNT (AUTO) 364 K/uL (140-450); RED BLOOD CELL COUNT(AUTO) 2.58 MIL/uL (4.20-6.10); RED CELL DISTRIBUTION WIDTH 19.4 % (11.6-13.7); WHITE BLOOD COUNT (AUTO) 10.3 K/uL (4.8-10.8)
--- NOTE | 2017-04-23 07:05 | NUR ---
RECEIVED PATIENT REPORT AT BEDSIDE. PATIENT ASLEEP BUT AROUSABLE. NO S/S OF DISTRESS NOTED. PATIENT ON ROOM AIR. IV LINE NOTED TO THE LEFT HAND. PATIENT ON TELE MONITORING. BED LOWERED WITH CALL LIGHT WITHIN REACH. WILL CONTINUE TO MONITOR
--- NOTE | 2017-04-23 07:15 | NUR ---
ENDORSED PLAN OF CARE TO AM NURSE. CONDITION STABLE.
[2017-04-23 07:37] LABS: ANION GAP 14.7 (8-16); CARBON DIOXIDE 28.5 mmol/L (21-32); CHLORIDE 108 mmol/L (98-107); GLUCOSE 97 mg/dL (74-106); POTASSIUM 4.2 mmol/L (3.5-5.1); SODIUM SERUM 147 mmol/L (136-145)
[2017-04-23 07:40] LABS: CREATININE 7.2 mg/dL (0.7-1.3); UREA NITROGEN, BLOOD 78 mg/dL (7-18)
[2017-04-23 07:42] LABS: MAGNESIUM 2.3 mg/dL (1.8-2.4); PHOSPHORUS 5.5 mg/dL (2.5-4.9)
[2017-04-23 08:00] VITALS: BP 170/87
[2017-04-23] MEDS: FERROUS GLUCONATE 324 MG TAB PO SCH ×2 (09:19→17:03)
[2017-04-23] MEDS: CALCIUM ACETATE 667 MG TAB PO SCH ×3 (09:20→17:02)
[2017-04-23] MEDS: FINASTERIDE 5 MG TAB PO SCH (09:20)
[2017-04-23] MEDS: hydrALAZINE 10 MG TAB PO SCH ×3 (09:21→17:03)
[2017-04-23] MEDS: LACTULOSE 20 GM/30 ML UDC PO SCH (09:22)
[2017-04-23] MEDS: ISOSORBIDE DINITRATE 10 MG TAB PO SCH ×3 (09:22→17:03)
[2017-04-23] MEDS: BUMETANIDE 1 MG TAB PO SCH (09:22)
[2017-04-23] MEDS: DOCUSATE SODIUM 100 MG GELCAP PO SCH ×2 (09:22→20:26)
[2017-04-23] MEDS: POLYETHYLENE GLYCOL 17 GM/PKT PO SCH (09:22)
[2017-04-23] MEDS: ASCORBIC ACID 500 MG TAB PO SCH (09:23)
[2017-04-23] MEDS: SENNA 8.6 MG TAB PO SCH (09:23)
[2017-04-23] MEDS: ZINC SULF 220 MG CAP PO SCH (09:23)
[2017-04-23] MEDS: ALLOPURINOL 100 MG TAB PO SCH (09:23)
[2017-04-23] MEDS ORDERED: MIDAZOLAM 2 MG/2 ML VIAL ONE (10:41)
[2017-04-23] MEDS ORDERED: diphenhydrAMINE 50 MG/ML VIAL ONE (10:41)
[2017-04-23] MEDS ORDERED: fentaNYL 0.05 MG/ML VIAL ONE (10:41)
[2017-04-23 11:00] VITALS: BP 163/69
--- NOTE | 2017-04-23 11:00 | NUR ---
PATIENT LEFT THE UNIT FOR COLONOSCOPY
--- NOTE | 2017-04-23 12:25 | NUR ---
PT BACK IN THE UNIT FROM COLONOSCOPY. PATIENT AWAKE BUT DROWSY. NO S/S OF DISTRESS. TEMP 97.0 BP: 160/96 HR: 88 O2 SAT: 96% ON 2L O2
[2017-04-23] MEDS ORDERED: MIDAZOLAM 2 MG/2 ML VIAL IVP ONE (13:00)
[2017-04-23] MEDS ORDERED: fentaNYL 0.05 MG/ML VIAL IVP ONE (13:00)
--- NOTE | 2017-04-23 13:21 | NUR ---
PT IS ASLEEP NO APPARENT DISTRESS
[2017-04-23] MEDS ORDERED: LORazepam 2 MG/ML VIAL IVP PRN (13:35)
--- NOTE | 2017-04-23 13:37 | NUR ---
PATIENT SEEN BY DR ASHFORD
[2017-04-23 16:56] VITALS: BP 170/86
--- NOTE | 2017-04-23 19:26 | NUR ---
PATIENT REPORT GIVEN AT BEDSIDE. PATIENT ENDORSED IN STABLE CONDITION
--- NOTE | 2017-04-23 19:35 | NUR ---
RECEIVED REPORT FROM AM NURSE. PT RESTING IN BED, AOX3, CONFUSED AND FORGETFUL AT TIMES, ABLE TO FOLLOW COMMANDS, ABLE TO VERBALIZE NEEDS, BEDREST AT THIS TIME. PACKAGER IN PLACE. PT DENIES PAIN OR SOB. PT HAS L CHEST TUNNELED CATH. IV ACCESS ASYMPTOMATIC, PATENT AND INTACT. DISCUSSED AND REVIEWED PLAN OF CARE WITH PT, PT REORIENTED, WILL CONTINUE WITH CONSTANT REINFORCEMENT. ALL NEEDS MET. SAFETY MEASURES ENSURED. CALL LIGHT WITHIN REACH.
[2017-04-23 20:00] VITALS: BP 168/109
[2017-04-23] MEDS: ATORVASTATIN 80 MG TAB PO SCH (20:26)
--- NOTE | 2017-04-23 20:30 | NUR ---
ADMINISTERED DUE MEDS WITH EDUCATION, PT ABLE TO SWALLOW MEDICATIONS WELL, ASSISTED PT TO FINISH PT'S DINNER. PT IS CLEAN AND DRY. ALL NEEDS MET. SAFETY MEASURES ENSURED. CALL LIGHT WITHIN REACH.
[2017-04-24] VITALS (7 sets, daily range): BP systolic 113–180; BP diastolic 62–93
[2017-04-24] MEDS: hydrALAZINE 20 MG/ML VIAL IVP SCH ×2 (00:29→23:50)
--- NOTE | 2017-04-24 00:30 | NUR ---
PT IS SLEEPING COMFORTABLY, SPO2 100% ON BIPAP, RR 22 EVEN AND UNLABORED, BP 180/93, HR 87. SPOKE WITH DR CARLOS, MADE MD AWARE OF PT VS, DISCUSSED THAT PT HAS APRESOLINE TID AND ISORDIL TID. RECEIVED ORDER FOR APRESOLINE IVP ONCE. ADMINISTERED APRESOLINE 10MG IVP ONCE WITH EDUCATION. PT NODDED IN AGREEMENT. ALL NEEDS MET. IVF INFUSING WELL. SAFETY MEASURES ENSURED. CALL LIGHT WITHIN REACH.
--- NOTE | 2017-04-24 01:40 | NUR ---
BP 142/83, HR 74 AT THIS TIME. PT SLEEPING COMFORTABLY, AROUSABLE TO NAME. PT HAD SMALL AMOUNT BROWN LOOSE BM, PT CLEANED WITH RECOVERY RN, WOUND CARE PERFORMED, SACRAL DRESSING CHANGED. TURNED AND REPOSITIONED, OFFLOADED PRESSURE AREAS. PT TOLERATED WELL. SPO2 100% ON BIPAP, RR 22 EVEN AND UNLABORED. ALL NEEDS MET. SAFETY MEASURES ENSURED. CALL LIGHT WITHIN REACH.
--- NOTE | 2017-04-24 04:00 | NUR ---
PT SLEEPING COMFORTABLY. SPO2 100% ON BIPAP, RR 20 EVEN AND UNLABORED, HR 86. ALL NEEDS MET. SAFETY MEASURES ENSURED. CALL LIGHT WITHIN REACH.
[2017-04-24] MEDS: LEVOTHYROXINE 0.075 MG TAB PO SCH (06:08)
[2017-04-24] MEDS: LANSOPRAZOLE 30 MG CAPDR PO SCH (06:08)
--- NOTE | 2017-04-24 06:08 | NUR ---
PT TAKEN OFF OF BIPAP PER PT REQUEST, SPO2 98% ON ROOM AIR, RR 20 EVEN AND UNLABORED. PT IS MORE ALERT AT THIS TIME, DISCUSSED PT'S CONDITION AND PLAN OF CARE, PT VERBALIZED UNDERSTANDING. ASKED PT IF HE IS ALLERGIC TO OMEPRAZOLE, PANTOPRAZOLE AND PANTOPRAZOLE, PT UNSURE. ASKED PT IS HE IS ALLERGIC TO PREVACID/LANSOPRAZOLE, PT STATED "THAT'S THE ONE I CAN TAKE, I'VE BEEN TAKING THAT FOR YEARS." INSTRUCTED PT TO NOTIFY IF HE FEELS ITCHING, BACK PAIN, RASHES, DIFFICULTY BREATHING OR ANYTHING ABNORMAL. ADMINISTERED DUE MEDS PREVACID PO AND SYNTHROID PO WITH EDUCATION. PT VERBALIZED UNDERSTANDING. WILL MONITOR PT.
[2017-04-24] MEDS: ALBUTEROL SULFATE/IPRATROPIU 3 ML SOL IH SCH ×3 (06:38→19:12)
--- NOTE | 2017-04-24 06:38 | NUR ---
PT SITTING COMFORTABLY IN BED, PT STATED "I FEEL FINE." DENIES ITCHING, SOB, BACK PAIN, NO RASHES NOTED, NO ALLERGIC REACTION NOTED.
[2017-04-24 07:07] LABS: BASOPHILS # (AUTO) 0.2 K/uL (0.00-0.22); BASOPHILS % (AUTO) 2.1 % (0.0-2.0); EOSINOPHILS # (AUTO) 0.3 K/uL (0-0.4); EOSINOPHILS % (AUTO) 2.8 % (0.0-4.0); HEMATOCRIT 23.2 % (36-52); HEMOGLOBIN 7.5 g/dL (12.0-18.0); LYMPHOCYTES # (AUTO) 2.5 K/uL (2.0-11.5); LYMPHOCYTES % (AUTO) 25.8 % (20.5-51.1); MEAN CORPUSCULAR HEMOGLOBIN 29 pg (27-31); MEAN CORPUSCULAR HGB CONC 32 g/dL (33-37); MEAN CORPUSCULAR VOLUME 90 fL (80-94); MONOCYTES # (AUTO) 0.4 K/uL (0.8-1.0); NEUTROPHILS # (AUTO) 6.4 K/uL (1.8-7.7); NEUTROPHILS % (AUTO) 65.3 % (42.2-75.2); PLATELET COUNT (AUTO) 315 K/uL (140-450); RED BLOOD CELL COUNT(AUTO) 2.59 MIL/uL (4.20-6.10); RED CELL DISTRIBUTION WIDTH 20.9 % (11.6-13.7); WHITE BLOOD COUNT (AUTO) 9.8 K/uL (4.8-10.8)
--- NOTE | 2017-04-24 07:15 | NUR ---
ENDORSED PLAN OF CARE TO AM NURSE. CONDITION STABLE.
--- NOTE | 2017-04-24 07:20 | NUR ---
RECEIVED PATIENT REPORT AT BEDSIDE FROM NIGHT NURSE. PATIENT IS DROWSY, ALERT ORIENTED X3 AND SHOWS NO S/S OF ACUTE DISTRESS, DENIES DYSPNEA, PATIENT ON ROOM AIR. PATIENT DENIES PAIN. ON TELE MONITOR. IV NOTED ON THE LEFT HAND SL, AND LEFT UPPER CHEST IRVIN CATH. NOTED CLEAN DRY AND INTACT DRX ON SACRAL AREA, DRY FLAKY SKIN. DISCUSSED POC WITH PATIENT AND HE VERBALIZED UNDERSTANDING. BED IN LOW POSITION WITH CALL LIGHT WITHIN REACH.
[2017-04-24 07:24] LABS: MAGNESIUM 2.3 mg/dL (1.8-2.4)
[2017-04-24 07:28] LABS: ANION GAP 16.8 (8-16); CARBON DIOXIDE 27.6 mmol/L (21-32); CHLORIDE 106 mmol/L (98-107); GLUCOSE 95 mg/dL (74-106); POTASSIUM 4.4 mmol/L (3.5-5.1); SODIUM SERUM 146 mmol/L (136-145)
[2017-04-24 07:41] LABS: CREATININE 8.4 mg/dL (0.7-1.3); UREA NITROGEN, BLOOD 84 mg/dL (7-18)
--- NOTE | 2017-04-24 08:45 | NUR ---
WOUND CARE EVALUATION NOTE: REASON FOR EVALUATION: SACRAL WOUND COMPLETE SKIN ASSESSMENT DONE ON THIS 76 Y/O MALE PATIENT ADMITTED TO [facility] WITH DIAGNOSIS OF SEVERE ANEMIA. PAST MEDICAL HX INCLUDE COPD, DM, HTN AND RENAL DISEASE. PATIENT IS RECEIVING HEMODIALYSIS TREATMENT. PATIENT HAS DIALYSIS ACCESS ON HIS LEFT UPPER CHEST, DRESSING CLEAN AND DRY. PATIENT IS ALERT AND AWAKE AT THIS TIME. SKIN IS NOTED TO BE DRY WITH ECCHYMOSIS NOTED ON BILATERAL UPPER EXTREMITIES. PATIENT NEEDS ASSISTANCE WITH TURNING. INITIAL PLAN OF CARE AND PRESSURE PREVENTIVE MEASURES DISCUSSED WITH PRIMARY RN. 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 PATIENT ON ASPIRIN RECOMMENDATIONS -APPLY HYPOGUARD TO UPPER AND LOWER EXTREMITIES BIDWCC -CLEAN SKIN WITH SOAP AND WATER. APPLY INTERDRY TO ABD FOLDS. CHANGE DRESSING Q7DAYS PRN IF SOILING Addendum: 04/24/17 at 1134 by Bertram Almaraz RN (Grace) CONTINUED RECOMMENDATIONS -INCONTINENCE ASSOCIATED DERMATITIS IN THE SACRAL AREA. CLEAN WITH SOAP AND WATER. PAT DRY. APPLY Z-GUARD THEN COVER WITH OPTIFOAM DRESSING QDAY AND PRN -KEEP SKIN DRY AND CLEAN AT ALL TIMES -REPOSITION PATIENT Q2H -OFFLOAD BILATERAL HEELS -PRESSURE REDISTRIBUTION MATTRESS RECOMMENDATIONS DISCUSSED WITH PRIMARY RN PLEASE CONTACT WOUND CARE NURSE FOR ANY QUESTIONS AND CHANGES IN SKIN CONDITION CLARIFICATION: FOR INCONTINENCE ASSOCIATED DERMATITIS MEASUREMENTS : 0.5 X 1.0 X 0.2 CM WOUND BED IS RED. NO DRAINAGE NOTED. PERIWOUND SKIN INTACT. REDNESS IN SURROUNDING AREA EXTENDING FROM LEFT TO RIGHT BUTTOCKS 5X5 CM
[2017-04-24] MEDS: ISOSORBIDE DINITRATE 10 MG TAB PO SCH ×3 (09:00→16:43)
[2017-04-24] MEDS: hydrALAZINE 10 MG TAB PO SCH ×3 (09:00→16:42)
[2017-04-24] MEDS: FERROUS GLUCONATE 324 MG TAB PO SCH ×2 (09:03→16:43)
[2017-04-24] MEDS: ZINC SULF 220 MG CAP PO SCH (09:04)
[2017-04-24] MEDS: DOCUSATE SODIUM 100 MG GELCAP PO SCH ×2 (09:04→20:21)
[2017-04-24] MEDS: CALCIUM ACETATE 667 MG TAB PO SCH ×3 (09:04→16:43)
[2017-04-24] MEDS: ALLOPURINOL 100 MG TAB PO SCH (09:04)
[2017-04-24] MEDS: ASCORBIC ACID 500 MG TAB PO SCH (09:04)
[2017-04-24] MEDS: FINASTERIDE 5 MG TAB PO SCH (09:05)
[2017-04-24] MEDS: LACTULOSE 20 GM/30 ML UDC PO SCH (09:06)
--- NOTE | 2017-04-24 09:20 | NUR ---
ADMINISTERED SCHEDULED MEDICATIONS, PATIENT SWALLOWED MEDICATIONS WITHOUT DIFFICULTY. ALL NEEDS MET AT THIS TIME.
--- NOTE | 2017-04-24 12:00 | NUR ---
HD NURSE AT BEDSIDE, PATIENT RECEIVING DIALYSIS AT THIS TIME, HELD BP MEDICATIONS.
--- NOTE | 2017-04-24 12:02 | NUR ---
ADMINISTERED SCHEDULED MEDICATIONS, PATIENT SWALLOWED MEDICATIONS WITHOUT DIFFICULTY. ALL NEEDS MET AT THIS TIME.
--- NOTE | 2017-04-24 15:05 | NUR ---
HD ENDED 2.6 L OUTPUT. PATIENT IS STABLE. ALL NEEDS MET AT THIS TIME.
--- NOTE | 2017-04-24 16:47 | NUR ---
ADMINISTERED SCHEDULED MEDICATIONS, PATIENT SWALLOWED MEDICATIONS WITHOUT DIFFICULTY. ALL NEEDS MET AT THIS TIME.
[2017-04-24] MEDS ORDERED: EPOETIN ALFA 10,000 UNITS/ML VIAL SUBQ SCH (18:30)
--- NOTE | 2017-04-24 18:30 | NUR ---
IV FOUND DISCONTINUED WITH CANNULA INTACT, NEW IV SUCCESSFULLY ATTEMPTED ON THE RIGHT THUMB 24 G.
--- NOTE | 2017-04-24 19:27 | NUR ---
GAVE PATIENT REPORT AT BEDSIDE TO NIGHT NURSE, PATIENT ENDORSED IN STABLE CONDITION.
--- NOTE | 2017-04-24 19:30 | NUR ---
RECEIVED BEDSIDE REPORT FROM DAY SHIFT NURSE ZOE RN, PT STABLE, NO DISTRESS NOTED, IV TO R THUMB 24G SL, PATENT, PT ON ROOM AIR NO SOB, INITIAL ASSESSMENT DONE, ALL SAFETY PRECAUTION MET, CALL LIGHT WITHIN REACH, WILL CONTINUE TO MONITOR.
[2017-04-24] MEDS: ATORVASTATIN 80 MG TAB PO SCH (20:20)
--- NOTE | 2017-04-24 20:20 | NUR ---
DUE MEDICATION GIVEN, PT TOLERATED WELL, NO DISTRESS NOTED, CALL LIGHT WITHIN REACH, WILL CONTINUE TO MONITOR.
--- NOTE | 2017-04-24 23:14 | NUR ---
PT SLEEPING, ON BIPAP, NO DISTRESS NOTED, NO SOB, CALL LIGHT WITHIN REACH, WILL CONTINUE TO MONITOR.
--- NOTE | 2017-04-24 23:51 | NUR ---
CHECKED ON PT BP, BP OF 146/76 HR 100, PT STABLE, NO DISTRESS NOTED, HYDRALAZINE NOT GIVEN, PT SBP NOT ABOVE 170 AND DBP NOT ABOVE 90. PT SLEEPING, CALL LIGHT WITHIN REACH, WILL CONTINUE TO MONITOR.
[2017-04-25] VITALS: BP 146/76
--- NOTE | 2017-04-25 00:01 | NUR ---
PT AWAKE, ALERT AAO X2, STATED DOES NOT WANT TO WEAR BIPAP AT THIS MOMENT, STATED IT IS DAY TIME, ORIENTED PT TO TIME AND SUGGEST PT TO SLEEP, PT STATED HE IS NOT FEELING SLEEPY AND DOES NOT WANT TO SLEEP AT THIS MOMENT.
--- NOTE | 2017-04-25 00:18 | NUR ---
0010 found patient off bipap. patient states he does not want to wear it at this time. he will tell the rn when he wants to go back on. patient does not have any sob and is alert and oriented
--- NOTE | 2017-04-25 02:18 | NUR ---
REPOSITIONED PT, DRESSING WAS OFF, REAPPLY NEW DRESSING, PT STABLE, NO DISTRESS NOTED, CALL LIGHT WITHIN REACH, WILL CONTINUE TO MONITOR. Addendum: 04/25/17 at 0225 by Arline Aguirre RN PT STATED WANTS TO GO BACK TO SLEEP BUT DOES NOT WANT TO WEAR BIPAP.
--- NOTE | 2017-04-25 03:57 | NUR ---
0350 patient still does not want to wear bipap. no sob noted
[2017-04-25 04:00] VITALS: BP 128/81
--- NOTE | 2017-04-25 04:02 | NUR ---
CHECKED ON PT, PT SLEEPING, NO DISTRESS NOTED, EASY TO AROUSE, PT DENIES ANY PAIN, STILL CONFUSED OF TIME, ORIENT PT TO TIME, CALL LIGHT WITHIN REACH, WILL CONTINUE TO MONITOR.
--- NOTE | 2017-04-25 05:42 | NUR ---
CHECKED ON PT, PT SLEEPING, EASY TO AROUSE, INSPECTOR MATERIALS AND PROCESSES DRAWING BLOOD FRM PT, PT TOLERATED WELL, NO DISTRESS NOTED, CALL LIGHT WITHIN REACH, WILL CONTINUE TO MONITOR.
[2017-04-25] MEDS: LEVOTHYROXINE 0.075 MG TAB PO SCH (06:33)
[2017-04-25] MEDS: LANSOPRAZOLE 30 MG CAPDR PO SCH (06:34)
--- NOTE | 2017-04-25 06:34 | NUR ---
DUE MEDICATION GIVEN PT STABLE, NO DISTRESS NOTED, CALL LIGHT WITHIN REACH, WILL CONTINUE TO MONITOR.
[2017-04-25] MEDS: ALBUTEROL SULFATE/IPRATROPIU 3 ML SOL IH SCH ×2 (06:44→13:11)
--- NOTE | 2017-04-25 07:20 | NUR ---
ENDORSED PLAN OF CARE TO DAY SHIFT NURSE ZOE SCHAFER, PT STABLE, NO DISTRESS NOTED, CALL LIGHT WITHIN REACH.
--- NOTE | 2017-04-25 07:25 | NUR ---
RECEIVED PATIENT REPORT AT BEDSIDE FROM NIGHT NURSE. PATIENT IS AAOX2 AND SHOWS NO S/S OF ACUTE DISTRESS, DENIES DYSPNEA, PATIENT ON ROOM AIR. PATIENT DENIES PAIN. ON TELE MONITOR. IV NOTED ON THE RIGHT THUMB SL, AND LEFT UPPER CHEST IRVIN CATH. NOTED CLEAN DRY AND INTACT DRX ON SACRAL AREA, DRY FLAKY SKIN. DISCUSSED POC WITH PATIENT AND HE VERBALIZED UNDERSTANDING; HOWEVER NEEDS REINFORCEMENT. BED IN LOW POSITION WITH CALL LIGHT WITHIN REACH.
[2017-04-25 07:44] LABS: BASOPHILS # (AUTO) 0.3 K/uL (0.00-0.22); BASOPHILS % (AUTO) 3.2 % (0.0-2.0); EOSINOPHILS # (AUTO) 0.2 K/uL (0-0.4); EOSINOPHILS % (AUTO) 2.9 % (0.0-4.0); HEMATOCRIT 22.8 % (36-52); HEMOGLOBIN 7.3 g/dL (12.0-18.0); LYMPHOCYTES % (AUTO) 24.5 % (20.5-51.1); MEAN CORPUSCULAR HEMOGLOBIN 28 pg (27-31); MEAN CORPUSCULAR HGB CONC 32 g/dL (33-37); MEAN CORPUSCULAR VOLUME 89 fL (80-94); MONOCYTES # (AUTO) 0.6 K/uL (0.8-1.0); MONOCYTES % (AUTO) 7.7 % (1.7-9.3); NEUTROPHILS % (AUTO) 61.7 % (42.2-75.2); PLATELET COUNT (AUTO) 318 K/uL (140-450); RED BLOOD CELL COUNT(AUTO) 2.56 MIL/uL (4.20-6.10); RED CELL DISTRIBUTION WIDTH 23.9 % (11.6-13.7); WHITE BLOOD COUNT (AUTO) 8.1 K/uL (4.8-10.8)
[2017-04-25 07:52] LABS: ANION GAP 10.4 (8-16); CARBON DIOXIDE 31.1 mmol/L (21-32); CHLORIDE 103 mmol/L (98-107); GLUCOSE 103 mg/dL (74-106); POTASSIUM 3.5 mmol/L (3.5-5.1); SODIUM SERUM 141 mmol/L (136-145); UREA NITROGEN, BLOOD 49 mg/dL (7-18)
[2017-04-25 07:57] LABS: CREATININE 6.4 mg/dL (0.7-1.3)
[2017-04-25 08:06] LABS: MAGNESIUM 1.9 mg/dL (1.8-2.4); PHOSPHORUS 4.3 mg/dL (2.5-4.9)
--- NOTE | 2017-04-25 08:19 | NUR ---
FOR DISCHARGE. FAXED INFOMATION TO [facility] [phone] PHONE [phone]
[2017-04-25 08:50] VITALS: BP 154/92
[2017-04-25] MEDS: ASCORBIC ACID 500 MG TAB PO SCH (08:58)
[2017-04-25] MEDS: CALCIUM ACETATE 667 MG TAB PO SCH ×2 (08:58→13:04)
[2017-04-25] MEDS: FINASTERIDE 5 MG TAB PO SCH (08:58)
[2017-04-25] MEDS: FERROUS GLUCONATE 324 MG TAB PO SCH (08:58)
[2017-04-25] MEDS: ISOSORBIDE DINITRATE 10 MG TAB PO SCH ×2 (08:59→13:04)
[2017-04-25] MEDS: hydrALAZINE 10 MG TAB PO SCH ×2 (08:59→13:04)
[2017-04-25] MEDS: DOCUSATE SODIUM 100 MG GELCAP PO SCH (08:59)
[2017-04-25] MEDS: ALLOPURINOL 100 MG TAB PO SCH (08:59)
[2017-04-25] MEDS: ZINC SULF 220 MG CAP PO SCH (08:59)
[2017-04-25] MEDS: LACTULOSE 20 GM/30 ML UDC PO SCH (08:59)
--- NOTE | 2017-04-25 09:08 | NUR ---
ADMINISTERED SCHEDULED MEDICATIONS, PATIENT SWALLOWED WITHOUT DIFFICULTY, PATIENT TOLERATING BREAKFAST DIET WELL. ALL NEEDS MET AT THIS TIME. BED IN LOW POSITION WITH CALL LIGHT WITHIN REACH.
[2017-04-25] MEDS ORDERED: LACT10SO11 PO (10:44)
[2017-04-25] MEDS ORDERED: HYDR-3233 PO (10:44)
[2017-04-25] MEDS ORDERED: ISOS10TA9 PO (10:44)
[2017-04-25 12:30] VITALS: BP 152/89
--- NOTE | 2017-04-25 12:52 | NUR ---
SPOKE WITH DESMOND FROM IVR . THE PATIENT CAN GO TO ROOM 119A UNDER DR. Chay VELASCO. FOR REPORT, CALLED [phone] AND ASK FOR STATION 1. I CALLED [facility] FOR TRANSPORT. TRANSPORT CONFIRMATION NUMBER IS [id number]. PER DEION [facility] WILL PICK THE PATIENT UP AT 4P.M. ZOE SCHAFER AWARE. PHONE LOGISTIC IS [phone].
--- NOTE | 2017-04-25 13:06 | NUR ---
ADMINISTERED SCHEDULED MEDICATIONS, PATIENT SWALLOWED WITHOUT DIFFICULTY. ALL NEEDS MET AT THIS TIME.
--- NOTE | 2017-04-25 14:56 | NUR ---
04/25/17 RD FOLLOW UP COMPLETED. PLEASE REFER TO NUTRITION ASSESSMENT UNDER CARE ACTIVITY FOR ESTIMATED NUTRITIONAL NEEDS. CONTINUE CURRENT DIET TOLERATED RD TO FOLLOW-UP IN 2-3 DAYS PATIENT IS HIGH RISK. YONY WALSH RD
[2017-04-25 16:00] VITALS: BP 154/83
--- NOTE | 2017-04-25 17:00 | NUR ---
[facility] ARRIVED ON UNIT, PATIENT HAS BEEN DISCHARGED, ALL PAPERWORK SIGNED, ALL QUESTIONS ANSWERED, PATIENT VERBALIZED UNDERSTANDING OF CONTINUITY OF CARE TO [facility], [place] AT [address] [address] AT THE FACILITY WAS GIVEN REPORT. MARIOLA VERBALIZED UNDERSTANDING OF CONTINUITY OF CARE ONCE PATIENT HAS BEEN TRANSPORTED UNDER THE CARE OF DR Trevon TORIBIO. ALL BELONGINGS AND PRESCRIPTIONS IN PATIENT'S POSSESSION, IV WAS DISCONTINUED WITH CANNULA INTACT, WRISTBANDS REMOVED, TELE BOX REMOVED. PATIENT LEFT IN STABLE CONDITION ON A [place] WIT [facility].
[2017-04-26] MEDS ORDERED: EPOETIN ALFA 10,000 UNITS/ML VIAL SUBQ SCH (09:00)
== END 2017-04-25 17:00 | disposition home or self-care (01) | DRG 377 ==
LOC: MED 01:43 → MTU 03:43 → OBSVTOIN 09:00
PROVIDERS: ADMIT Family Medicine Sports Medicine; ATTEND Family Medicine Sports Medicine
PROC: 0DB68ZX Excision of Stomach, Via Natural or Artificial Opening Endoscopic, Diagnostic (ICD-10-PCS; 2017-04-21)
PROC: 30233N1 Transfusion of Nonautologous Red Blood Cells into Peripheral Vein, Percutaneous Approach (ICD-10-PCS; 2017-04-21)
PROC: 05HP33Z Insertion of Infusion Device into Right External Jugular Vein, Percutaneous Approach (ICD-10-PCS; 2017-04-21)
PROC: 5A1D70Z Performance of Urinary Filtration, Intermittent, Less than 6 Hours Per Day (ICD-10-PCS; 2017-04-21)
PROC: 0DB48ZX Excision of Esophagogastric Junction, Via Natural or Artificial Opening Endoscopic, Diagnostic (ICD-10-PCS; principal; 2017-04-21 16:15)
PROC: 0W3P8ZZ Control Bleeding in Gastrointestinal Tract, Via Natural or Artificial Opening Endoscopic (ICD-10-PCS; 2017-04-21 16:15)
PROC: 0DBG8ZZ Excision of Left Large Intestine, Via Natural or Artificial Opening Endoscopic (ICD-10-PCS; 2017-04-23)
PROC: 5A1D70Z Performance of Urinary Filtration, Intermittent, Less than 6 Hours Per Day (ICD-10-PCS; 2017-04-24)
DX: K29.71 Gastritis, unspecified, with bleeding (principal); N18.6 End stage renal disease; N17.0 Acute kidney failure with tubular necrosis; G93.41 Metabolic encephalopathy; I13.2 Hypertensive heart and chronic kidney disease with heart failure and with stage 5 chronic kidney disease, or end stage renal disease; I47.2 Ventricular tachycardia; E46 Unspecified protein-calorie malnutrition; D62 Acute posthemorrhagic anemia; E11.22 Type 2 diabetes mellitus with diabetic chronic kidney disease; D68.59 Other primary thrombophilia; K22.10 Ulcer of esophagus without bleeding; Z68.41 Body mass index [BMI] 40.0-44.9, adult; I95.9 Hypotension, unspecified; E11.51 Type 2 diabetes mellitus with diabetic peripheral angiopathy without gangrene; E11.65 Type 2 diabetes mellitus with hyperglycemia; E87.5 Hyperkalemia; I25.82 Chronic total occlusion of coronary artery; I27.20 Pulmonary hypertension, unspecified; E66.01 Morbid (severe) obesity due to excess calories; K29.80 Duodenitis without bleeding; K57.30 Diverticulosis of large intestine without perforation or abscess without bleeding; K63.5 Polyp of colon; K59.09 Other constipation; E03.9 Hypothyroidism, unspecified; E78.5 Hyperlipidemia, unspecified; E87.6 Hypokalemia; F03.90 Unspecified dementia, unspecified severity, without behavioral disturbance, psychotic disturbance, mood disturbance, and anxiety; G47.33 Obstructive sleep apnea (adult) (pediatric); G47.419 Narcolepsy without cataplexy; I50.9 Heart failure, unspecified; J44.9 Chronic obstructive pulmonary disease, unspecified; F32.9 Major depressive disorder, single episode, unspecified; G44.209 Tension-type headache, unspecified, not intractable; G89.29 Other chronic pain; M10.9 Gout, unspecified; I70.209 Unspecified atherosclerosis of native arteries of extremities, unspecified extremity; E83.39 Other disorders of phosphorus metabolism; S30.91XA Unspecified superficial injury of lower back and pelvis, initial encounter; X58.XXXA Exposure to other specified factors, initial encounter; R74.8 Abnormal levels of other serum enzymes; N40.0 Benign prostatic hyperplasia without lower urinary tract symptoms; D47.3 Essential (hemorrhagic) thrombocythemia; K72.90 Hepatic failure, unspecified without coma; K21.0 Gastro-esophageal reflux disease with esophagitis; Z96.653 Presence of artificial knee joint, bilateral; Z96.612 Presence of left artificial shoulder joint; Z96.611 Presence of right artificial shoulder joint; I25.10 Atherosclerotic heart disease of native coronary artery without angina pectoris; R26.9 Unspecified abnormalities of gait and mobility; R79.89 Other specified abnormal findings of blood chemistry; Z86.14 Personal history of Methicillin resistant Staphylococcus aureus infection; Z87.01 Personal history of pneumonia (recurrent); Z87.11 Personal history of peptic ulcer disease; Z98.61 Coronary angioplasty status; Z99.2 Dependence on renal dialysis; Z88.6 Allergy status to analgesic agent; Z88.0 Allergy status to penicillin; Z88.8 Allergy status to other drugs, medicaments and biological substances; Z99.89 Dependence on other enabling machines and devices; Y93.89 Activity, other specified; Y92.89 Other specified places as the place of occurrence of the external cause; Y99.8 Other external cause status
CPT/HCPCS: 36556; 43239; 43255; 45385; 96360; 96361; 99285; G0378; 36415; 36600; 71045; 80048; 80053; 82140; 82272; 82607; 82728; 82746; 82803; 83036; 83540; 83605; 83690; 83735; 83880; 84100; 84436; 84439; 84443; 84479; 84484; 85025; 85045; 85610; 85730; 86677; 86886; 86900; 86901; 86920; 87040; 87081; 90935; 93005; 94640; 94660; 97110; 97116; 97140; 97530; C9113; J0360; J0885; J1200; J1644; J2060; J2250; J3010; J3490; J7030; J7620; P9016; Q0092; Q0163

== ENCOUNTER 2017-09-09 11:17 | Inpatient (IN) | payer OTHER, MEDICAID ==
[~2017-09-09] VITALS: Ht 170.2 cm; Wt 113.4 kg
[~2017-09-09 11:17] MED LIST changes: +HYDR-3233 PO; +ISOS10TA9 PO; +LACT10SO11 PO
--- NOTE | 2017-09-09 11:18 | NUR ---
Patient BIBA BLS, transferred to bed 8. RN evaluating patient at bedside.
--- NOTE | 2017-09-09 11:30 | NUR ---
PATIENT BIBA WITH COMPLAINTS OF FALLEN OUT [place] CATH THAT WAS PLACED IN THE RIGHT UPPER THIGH. UPON INSPECTION, SITE HAS BEED DRESSED WITH A BANDAGE. SOME BRUISING NOTED UNDER THE SITE. OTHERWISE, SKIN IS INTACT. PATIENT ALSO COMPLAINS OF RIGHT KNEE PAIN. PATIENT REPORTS HAVING KNEE REPLACEMENT 15YRS AGO. KNEE APPEARS RED AND SWOLLEN, WARM TO TOUCH. HEALED SCAR RUNNING ALONG RIGHT KNEE VERTICALLY IS INTACT AND HEALED. PATIENT WAS ASSISTED INTO A GOWN, HOOKED UP TO THE MONITOR, HOB UP, BED IN LOWEST POSITION, X2 BEDRAILS UP.
[2017-09-09 11:36] VITALS: BP 136/69
--- NOTE | 2017-09-09 11:42 | NUR ---
Dr. Larson evaluating patient at bedside.
[2017-09-09 12:31] LABS: BASOPHILS # (AUTO) 0.1 K/uL (0.00-0.22); BASOPHILS % (AUTO) 0.5 % (0.0-2.0); EOSINOPHILS # (AUTO) 0.2 K/uL (0-0.4); HEMATOCRIT 32.2 % (36-52); HEMOGLOBIN 9.9 g/dL (12.0-18.0); LYMPHOCYTES # (AUTO) 2.4 K/uL (2.0-11.5); LYMPHOCYTES % (AUTO) 26.7 % (20.5-51.1); MEAN CORPUSCULAR HEMOGLOBIN 29 pg (27-31); MEAN CORPUSCULAR HGB CONC 31 g/dL (33-37); MEAN CORPUSCULAR VOLUME 95.2 fL (80-94); MONOCYTES # (AUTO) 0.9 K/uL (0.8-1.0); MONOCYTES % (AUTO) 9.5 % (1.7-9.3); NEUTROPHILS # (AUTO) 5.6 K/uL (1.8-7.7); NEUTROPHILS % (AUTO) 61.3 % (42.2-75.2); PLATELET COUNT (AUTO) 336 K/uL (140-450); RED BLOOD CELL COUNT(AUTO) 3.38 MIL/uL (4.20-6.10); RED CELL DISTRIBUTION WIDTH 16.5 % (11.6-13.7); WHITE BLOOD COUNT (AUTO) 9.1 K/uL (4.8-10.8)
--- NOTE | 2017-09-09 13:00 | NUR ---
Patient appears to be resting comfortably in bed. Vital Signs within normal limits. Respirations even and unlabored.
[2017-09-09 13:28] LABS: ALBUMIN 2.4 g/dL (3.4-5.0); ANION GAP 16.7 (8-16); ASPARTATE AMINOTRANSFERASE 5 U/L (15-37); CARBON DIOXIDE 28.1 mmol/L (21-32); CHLORIDE 95 mmol/L (98-107); GLUCOSE 129 mg/dL (74-106); POTASSIUM 4.8 mmol/L (3.5-5.1); SODIUM SERUM 135 mmol/L (136-145); TOTAL BILIRUBIN 0.3 mg/dL (0.0-1.0)
[2017-09-09 13:29] LABS: PROTHROMBIN TIME 10.6 secs (10.8-13.4)
[2017-09-09 13:31] LABS: CREATININE 8.3 mg/dL (0.7-1.3)
[2017-09-09 13:45] LABS: UREA NITROGEN, BLOOD 77 mg/dL (7-18)
[2017-09-09] MEDS ORDERED: LORazepam 2 MG/ML VIAL IM/IVP PRN (14:15)
[2017-09-09] MEDS ORDERED: ACETAMINOPHEN 325 MG TAB PO PRN (14:15)
[2017-09-09] MEDS ORDERED: ONDANSETRON 4 MG/2 ML VIAL IM/IVP PRN (14:15)
[2017-09-09] MEDS ORDERED: DOCUSATE SODIUM 100 MG GELCAP PO PRN (14:15)
[2017-09-09] MEDS ORDERED: ZOLPIDEM 5 MG TAB PO PRN (14:15)
[2017-09-09] MEDS ORDERED: HYDROcodone/APAP 5/325 MG 1 TAB TAB PO PRN (14:15)
--- NOTE | 2017-09-09 14:29 | NUR ---
Dr. Lynn evaluating patient at bedside.
[2017-09-09 14:50] LABS: MAGNESIUM 2.2 mg/dL (1.8-2.4); THYROID STIMULATING HORMONE 0.73 uIU/mL (0.34-3.74)
--- NOTE | 2017-09-09 15:00 | NUR ---
Patient appears to be resting comfortably in bed. Vital Signs within normal limits. Respirations even and unlabored.
--- NOTE | 2017-09-09 16:10 | NUR ---
Patient will be admitted to care of DR. ROSENBERG. Admited to TELE. Will go to room 117. Belongings list completed. Report to HANH NEWELL.
--- NOTE | 2017-09-09 16:15 | NUR ---
PATIENT ARRIVED ON FLOOR VIA GURNEY, PATIENT TRANSFERRED HIMSELF TO BED. REPORT RECEIVED FROM ER NURSE AT BEDSIDE FOR CONTINUITY OF CARE. PATIENT AOX4, COMPLAINING OF HUNGER. PATIENT DOES COMPLAIN OF PAIN ON HIS RIGHT KNEE WHERE HE HAD KNEE REPLACEMENT. RIGHT KNEE WARM TO TOUCH AND RED. LOWER EXTREMITIES EDEMATOUS +1 PITTING. MRSA SCREENING DONE. INITIAL ASSESSMENT DONE. LUNG SOUNDS CLEAR, BOWEL SOUNDS ACTIVE. PATIENT HAS PACEMAKER. UPDATED BOARD. SAFETY PRECAUTION IN PLACE, BED ON LOWEST SETTING, CALL LIGHT WITHIN REACH, WILL CONTINUE TO MONITOR PATIENT.
[2017-09-09 16:20] VITALS: BP 134/47
--- NOTE | 2017-09-09 16:20 | NUR ---
NO IV ACCESS, INFORMED PATIENT THAT ATTEMPT WILL BE MADE. PATIENT STATES THAT HE IS HARD STICK BUT VERBALIZES UNDERSTANDING AND AGREES TO IV ATTEMPTS. ORIENTED PATIENT TO CALL LIGHT, BATHROOM, AND TV. PATIENT VERBALIZED UNDERSTANDING. WILL CONTINUE TO MONITOR PATIENT.
[2017-09-09] MEDS ORDERED: NITROGLYCERIN 0.4 MG TAB SL PRN (16:45)
[2017-09-09] MEDS ORDERED: CARBOXYMETHYLCELLULOS OP PRN (16:45)
[2017-09-09] MEDS ORDERED: GLYCERIN OP PRN (16:45)
[2017-09-09] MEDS ORDERED: ALBUTEROL HFA MDI 90 MCG/ACTUATION 8 GM INH PRN (16:45)
--- NOTE | 2017-09-09 16:45 | NUR ---
CHICKEN SANDWICH AND JUICE BROUGHT TO PATIENT. PATIENT TOLERATED THEM WELL. WILL CONTINUE TO MONITOR PATIENT.
[2017-09-09] MEDS ORDERED: ALBUTEROL SULFATE/IPRATROPIU 3 ML SOL IH PRN (16:50)
[2017-09-09] MEDS ORDERED: ISOSORBIDE DINITRATE 10 MG TAB PO SCH (17:00)
[2017-09-09] MEDS ORDERED: HYDRALAZINE HCL 10 MG PO SCH (17:00)
[2017-09-09] MEDS ORDERED: BUMETANIDE 1 MG TAB PO SCH (17:00)
--- NOTE | 2017-09-09 17:41 | NUR ---
DR BRADY IN TO ASSESS THE PATIENT. WILL CONTINUE TO MONITOR AND WAIT FOR HIS NEW ORDERS.
[2017-09-09] MEDS ORDERED: cloNIDine 0.1 MG TAB PO PRN (18:05)
[2017-09-09] MEDS: NACL 0.9% 1,000 ML IV SCH (18:15)
--- NOTE | 2017-09-09 18:15 | NUR ---
IV INSERTED ON RIGHT FOREARM 22 GAUGE, PATIENT TOLERATED IT. IV SITE PATENT, INTACT, AND ASYMPTOMATIC.
--- NOTE | 2017-09-09 19:15 | NUR ---
REPORT GIVEN TO CUSTOMER EXPERT NURSE AT BEDSIDE FOR CONTINUITY OF CARE. PATIENT IN STABLE CONDITION.
--- NOTE | 2017-09-09 19:20 | NUR ---
RECEIVED REPORT AT BEDSIDE FOR DAYSHIFT NURSE FOR CONTINUITY OF CARE. PT AAOX4. PT IV NOTED RFA 22 TKO. PT HAS NO SOB NO S/S OF DISTRESS ON RA. BED LOWERED CALL LIGHT WITHIN REACH WILL CONTINUE TO MONITOR.
[2017-09-09 20:00] VITALS: BP 137/64
[2017-09-09] MEDS: ATORVASTATIN 80 MG TAB PO SCH (21:00)
[2017-09-09] MEDS ORDERED: MODAFINIL 200 MG PO SCH (21:00)
[2017-09-09] MEDS ORDERED: FERROUS SULFATE 325 MG TABEC PO SCH (21:00)
--- NOTE | 2017-09-09 21:30 | NUR ---
DR. CM ADMINISTERED SUBCLAVIAN DIALYSIS CATH. PT IN PAIN OFFERED PAIN MED BUT PT REFUSED AT THIS TIME. WILL CONTINUE TO MONITOR.
[2017-09-09] MEDS: CYANOCOBALAMIN 1,000 MCG TAB PO SCH (21:49)
[2017-09-09] MEDS: CARVEDILOL 12.5 MG TAB PO SCH (21:50)
[2017-09-09] MEDS: DOCUSATE SODIUM 250 MG GELCAP PO SCH (21:50)
[2017-09-09] MEDS ORDERED: INSULIN LISPRO SLIDING SCALE 100 UNITS/ML VIAL SUBQ PRN (23:10)
[2017-09-09] MEDS ORDERED: DEXTROSE 50% 50 ML SYR IVP PRN (23:10)
[2017-09-09 23:55] VITALS: BP 151/75
--- NOTE | 2017-09-10 02:41 | NUR ---
ORDER FOR URINALYSIS BUT PT DOESNT URINATE. IS AWARE.
[2017-09-10] MEDS ORDERED: MORPHINE SULFATE 2 MG/ML SYR IVP SCH (03:00)
[2017-09-10 04:00] VITALS: BP_SYST 131; BP_SYST 160; BP_DIAS 60; BP_DIAS 85
--- NOTE | 2017-09-10 04:00 | NUR ---
ADMIN ZOFRAN FOR NAUSEA WITH MORPHINE 1 HR AGO. PT HAS NO COMPLAINTS OF NAUSEA WILL CONTINUE TO MONITOR.
--- NOTE | 2017-09-10 06:00 | NUR ---
PT SLEEPING NO SOB NO S/S OF DISTRESS WILL CONTINUE TO MONITOR.
[2017-09-10] MEDS: LEVOTHYROXINE 0.075 MG TAB PO SCH (06:04)
[2017-09-10] MEDS: BLOOD GLUCOSE MONITORING 1 DEV DEV FS SCH ×4 (06:06→21:00)
[2017-09-10] MEDS: CARVEDILOL 12.5 MG TAB PO SCH ×2 (06:45→20:55)
[2017-09-10] MEDS: NIFEdipine 60 MG TABER PO SCH (06:45)
--- NOTE | 2017-09-10 06:47 | NUR ---
NIFEDIPINE AND COREG ADMIN EARLY D/T ELEVATED BP 160/[address] BRADY RECOMMENDATION. WILL CONTINUE TO MONITOR.
[2017-09-10 07:06] LABS: ANION GAP 19.3 (8-16); CARBON DIOXIDE 25.6 mmol/L (21-32); CHLORIDE 94 mmol/L (98-107); GLUCOSE 121 mg/dL (74-106); POTASSIUM 4.9 mmol/L (3.5-5.1); SODIUM SERUM 134 mmol/L (136-145)
[2017-09-10 07:09] LABS: CREATININE 8.9 mg/dL (0.7-1.3); UREA NITROGEN, BLOOD 88 mg/dL (7-18)
--- NOTE | 2017-09-10 07:18 | NUR ---
ENDORSED REPORT TO DAYSHIFT NURSE AT BEDSIDE FOR CONTINUITY OF CARE.
[2017-09-10 07:21] LABS: BASOPHILS % (AUTO) 0.7 % (0.0-2.0); EOSINOPHILS % (AUTO) 3.5 % (0.0-4.0); HEMATOCRIT 29.7 % (36-52); HEMOGLOBIN 9.5 g/dL (12.0-18.0); LYMPHOCYTES % (AUTO) 24.8 % (20.5-51.1); MEAN CORPUSCULAR HEMOGLOBIN 30 pg (27-31); MEAN CORPUSCULAR HGB CONC 32 g/dL (33-37); MEAN CORPUSCULAR VOLUME 93.5 fL (80-94); MONOCYTES % (AUTO) 9.8 % (1.7-9.3); NEUTROPHILS % (AUTO) 61.2 % (42.2-75.2); PLATELET COUNT (AUTO) 349 K/uL (140-450); RED BLOOD CELL COUNT(AUTO) 3.18 MIL/uL (4.20-6.10); RED CELL DISTRIBUTION WIDTH 15.7 % (11.6-13.7); WHITE BLOOD COUNT (AUTO) 9.5 K/uL (4.8-10.8)
[2017-09-10 07:22] LABS: BASOPHILS # (AUTO) 0.1 K/uL (0.00-0.22); EOSINOPHILS # (AUTO) 0.3 K/uL (0-0.4); LYMPHOCYTES # (AUTO) 2.3 K/uL (2.0-11.5); MONOCYTES # (AUTO) 0.9 K/uL (0.8-1.0); NEUTROPHILS # (AUTO) 5.9 K/uL (1.8-7.7)
[2017-09-10 07:57] VITALS: BP 134/65
[2017-09-10] MEDS ORDERED: OMEGA PO SCH (09:00)
[2017-09-10] MEDS ORDERED: FATTY ACIDS PO SCH (09:00)
[2017-09-10] MEDS ORDERED: FISH OIL PO SCH (09:00)
--- NOTE | 2017-09-10 09:17 | NUR ---
SPOKE WITH DR ASHFORD AND INFORMED HIM ABOUT THE PATIENT'S LABS TODAY. PER DOCTOR, HE SPOKE TO THE DIALYSIS NURSE REGARDING HEMODIALYSIS FOR THE PATIENT TODAY
[2017-09-10] MEDS: DOCUSATE SODIUM 250 MG GELCAP PO SCH ×2 (10:26→20:55)
[2017-09-10] MEDS: CHOLECALCIFEROL 1,000 IU TAB PO SCH (10:26)
[2017-09-10] MEDS: ASPIRIN 81 MG TAB.CHEW PO SCH (10:27)
[2017-09-10] MEDS: ALLOPURINOL 100 MG TAB PO SCH (10:27)
[2017-09-10] MEDS: CALCIUM ACETATE 667 MG TAB PO SCH ×3 (10:27→16:33)
[2017-09-10] MEDS: FINASTERIDE 5 MG TAB PO SCH (10:28)
[2017-09-10] MEDS: POLYETHYLENE GLYCOL 17 GM/PKT PO SCH (10:28)
[2017-09-10] MEDS: LACTULOSE 20 GM/30 ML UDC PO SCH (10:28)
[2017-09-10 12:00] VITALS: BP 130/66
[2017-09-10] MEDS ORDERED: BISACODYL 10 MG SUPP RC SCH (14:00)
[2017-09-10] MEDS: CHLORHEXADINE GLUC 2% CLOTH TP SCH (14:00)
[2017-09-10] MEDS: NACL 0.9% 1,000 ML IV SCH (14:12)
--- NOTE | 2017-09-10 14:55 | NUR ---
HEMODIALYSIS IN PROGRESS. PATIENT IS AWAKE AND ALERT. NO S/S OF DISTRESS NOTED
[2017-09-10] MEDS ORDERED: EPOETIN ALFA 10,000 UNITS/ML VIAL SUBQ SCH (15:00)
[2017-09-10] MEDS ORDERED: ALTEPLASE 100 MG VIAL IV ONE (15:15)
[2017-09-10] MEDS ORDERED: ALTEPLASE 2 MG VIAL MC SCH (15:35)
--- NOTE | 2017-09-10 15:40 | NUR ---
HEMODIALYSIS DONE. 200ML OUT. BP 100/54 HR 72. NO S/S OF DISTRESS NOTED
--- NOTE | 2017-09-10 15:58 | NUR ---
ALCON VASQUEZ ADMINISTERED BY THE DIALYSIS NURSE
[2017-09-10 16:00] VITALS: BP 131/73
[2017-09-10] MEDS: MUPIROCIN CA NASAL 2% 1GM TUBE NS SCH (16:27)
[2017-09-10] MEDS: oxyCODONE/APAP 5/325 MG 1 TAB TAB PO PRN (18:31)
--- NOTE | 2017-09-10 19:10 | NUR ---
PATIENT REPORT GIVEN AT BEDSIDE. PATIENT ENDORSED IN STABLE CONDITION
--- NOTE | 2017-09-10 19:11 | NUR ---
RECEIVED REPORT AT BEDSIDE FOR CONTINUITY OF CARE PT AAOX4. PT IV NOTED RFA 22G TKO. PT HAS NO SOB NO S/S OF DISTRESS ON RA. BED LOWERED CALL LIGHT WITHIN REACH WILL CONTINUE TO MONITOR.
[2017-09-10 20:00] VITALS: BP 100/45
[2017-09-10] MEDS: ATORVASTATIN 80 MG TAB PO SCH (20:55)
[2017-09-10] MEDS: HYDRAGUARD CREAM TP SCH (20:56)
[2017-09-10] MEDS: CYANOCOBALAMIN 1,000 MCG TAB PO SCH (20:56)
[2017-09-11] VITALS: BP 120/56
[2017-09-11 04:00] VITALS: BP 142/72
[2017-09-11 06:25] LABS: ANION GAP 16.4 (8-16); CARBON DIOXIDE 24.6 mmol/L (21-32); CHLORIDE 97 mmol/L (98-107); GLUCOSE 103 mg/dL (74-106); SODIUM SERUM 133 mmol/L (136-145)
[2017-09-11 06:41] LABS: UREA NITROGEN, BLOOD 66 mg/dL (7-18)
[2017-09-11 06:42] LABS: CREATININE 7.2 mg/dL (0.7-1.3)
[2017-09-11] MEDS: BLOOD GLUCOSE MONITORING 1 DEV DEV FS SCH ×4 (06:46→20:40)
[2017-09-11] MEDS: LEVOTHYROXINE 0.075 MG TAB PO SCH (06:47)
--- NOTE | 2017-09-11 07:10 | NUR ---
ENDORSED REPORT TO DAYSHIFT NURSE AT BEDSIDE FOR CONTINUITY OF CARE.
[2017-09-11 07:12] LABS: RED BLOOD CELL COUNT(AUTO) 3.18 MIL/uL (4.20-6.10); WHITE BLOOD COUNT (AUTO) 11.3 K/uL (4.8-10.8)
[2017-09-11 07:13] LABS: BASOPHILS # (AUTO) 0.3 K/uL (0.00-0.22); BASOPHILS % (AUTO) 2.4 % (0.0-2.0); EOSINOPHILS # (AUTO) 0.4 K/uL (0-0.4); EOSINOPHILS % (AUTO) 3.2 % (0.0-4.0); HEMATOCRIT 30.1 % (36-52); HEMOGLOBIN 9.4 g/dL (12.0-18.0); LYMPHOCYTES # (AUTO) 2.6 K/uL (2.0-11.5); LYMPHOCYTES % (AUTO) 23.1 % (20.5-51.1); MEAN CORPUSCULAR HEMOGLOBIN 30 pg (27-31); MEAN CORPUSCULAR HGB CONC 31 g/dL (33-37); MEAN CORPUSCULAR VOLUME 94.7 fL (80-94); MONOCYTES % (AUTO) 9.3 % (1.7-9.3); NEUTROPHILS # (AUTO) 6.9 K/uL (1.8-7.7); PLATELET COUNT (AUTO) 317 K/uL (140-450); RED CELL DISTRIBUTION WIDTH 15.6 % (11.6-13.7)
--- NOTE | 2017-09-11 07:30 | NUR ---
RECEIVED ON BED AAO WITH PERIODS FORGETFULNESS. NO SOB NOTED. NO C/O PAIN AT THIS TIME. IV TO RT ARM PATENT AND INTACT. RT CHEST DIALYSIS CATHETER SITE DRESSING DRY, CLEAN AND INTACT. CHEST DIMINISHED AIR ENTRY TO THE BASES, OTHERWISE CLEAR. ABDOMEN, LARGE BUT SOFT, BOWEL SOUNDS PRESENT. INSTRUCTED PT TO CALL FOR ASSISTANCE. CALL LIGHT WITHIN REACH, PT VERBALIZED UNDERSTANDING.
[2017-09-11 08:00] VITALS: BP 102/69
[2017-09-11] MEDS: POLYETHYLENE GLYCOL 17 GM/PKT PO SCH (09:00)
[2017-09-11] MEDS: CARVEDILOL 12.5 MG TAB PO SCH ×2 (09:00→20:40)
[2017-09-11] MEDS: CHLORHEXADINE GLUC 2% CLOTH TP SCH (09:00)
[2017-09-11] MEDS: HYDRAGUARD CREAM TP SCH (09:00)
[2017-09-11] MEDS: LACTULOSE 20 GM/30 ML UDC PO SCH (09:00)
[2017-09-11] MEDS: NIFEdipine 60 MG TABER PO SCH ×2 (09:00→17:25)
[2017-09-11] MEDS: DOCUSATE SODIUM 250 MG GELCAP PO SCH ×2 (09:00→20:40)
[2017-09-11] MEDS: CHOLECALCIFEROL 1,000 IU TAB PO SCH (09:21)
[2017-09-11] MEDS: ASPIRIN 81 MG TAB.CHEW PO SCH (09:22)
[2017-09-11] MEDS: CALCIUM ACETATE 667 MG TAB PO SCH ×3 (09:22→17:00)
[2017-09-11] MEDS: FINASTERIDE 5 MG TAB PO SCH (09:22)
[2017-09-11] MEDS: VIT-B COMP/VIT-C/FOLIC ACID 1 TAB PO SCH (09:22)
[2017-09-11] MEDS: oxyCODONE/APAP 5/325 MG 1 TAB TAB PO PRN (09:22)
--- NOTE | 2017-09-11 09:45 | NUR ---
WOUND CARE ON GOING AT THE BEDSIDE BY MISAEL.
[2017-09-11] MEDS: FERROUS GLUCONATE 324 MG TAB PO SCH ×2 (10:00→11:10)
--- NOTE | 2017-09-11 10:00 | NUR ---
WOUND CARE EVALUATION NOTES: REASON FOR EVALUATION: SACRAL COCCYX WOUND SKIN ASSESSMENT DONE ON THIS 77 Y/O MALE PATIENT FROM [facility] TO [facility], WITH INITIAL DIAGNOSIS OF DYSFUNCTIONAL IRVIN CATH. PAST MEDICAL HISTORY INCLUDE COPD, DIABETES AND ESRD OH HD. ALL ABOVE INFORMATION WAS OBTAINED FROM THE ADMISSION H&P. PATIENT IS AWAKE ABLE TO TURN. SKIN WARM TO TOUCH, THICKENED TOENAILS, NO EDEMA, NO HAIR GROWTH AND BILATERAL PEDAL PULSES PRESENT. PLAN OF CARE AND PRESSURE PREVENTIVE MEASURES DISCUSSED WITH PT AND PRIMARY NURSE. PT VERBALIZE UNDERSTANDING. INTEGUMENTARY: -UPPER AND LOWER EXTREMITIES DRYNESS -BLE BROWN COLOR PIGMENTATION SKIN INTACT WITH DRYNESS -PRESSURE INJURY STAGE 1 TO SACRAL COCCYX AREA 3X2CM, BRII REDNESS FRICTION PEELING SKIN -RIGHT 3RD TOE AMPUTATION OLD HEALED SCAR. RECOMMENDATIONS: -APPLY HYDRAGUARD TO UPPER AND LOWER EXTREMITIES DRYNESS BIDWC -APPLY HYDRAGUARD TO SACRAL COCCYX AREA BIDWC AND PRN IF SOILING -TURN AND REPOSITION PATIENT Q2H -ASSESS AND MONITOR SKIN CONDITION DURING POSITION CHANGE, PLEASE PAY ATTENTION TO LEFT AND RIGHT BUTTOCKS -OFFLOAD BILATERAL HEELS BY PLACING PILLOWS UNDER CALVES AT ALL TIMES, UNLESS OTHERWISE CONTRAINDICATED -HEEL RAISERS TO BILATERAL HEELS AT ALL TIMES -PRESSURE REDISTRIBUTION SURFACE THERAPY -KEEP SKIN CLEAN AND DRY AT ALL TIMES. RECTAL TUBE FOR MOISTURE CONTROL UNLESS OTHERWISE CONTRAINDICATED. RECOMMENDATIONS DISCUSSED WITH PRIMARY RN WILL FOLLOW UP PATIENT Q 7 -10 DAYS AND PRN. PLEASE CONTACT WOUND CARE NURSE FOR ANY QUESTION OR CHANGES IN WOUND CONDITION Addendum: 09/11/17 at 1407 by Bertram Almaraz RN (Grace) CORRECTION: KEEP SKIN CLEAN AND DRY AT ALL TIMES. NO NEED FOR RECTAL TUBE.
--- NOTE | 2017-09-11 10:12 | NUR ---
PATIENT HAS BEEN SCREENED AND CATEGORIZED MODERATE NUTRITION RISK. PATIENT WILL BE SEEN WITHIN 3-5 DAYS OF ADMISSION. 09/12/17 09/14/[address]
--- NOTE | 2017-09-11 10:15 | NUR ---
PHYSICAL THERAPY ON GOING AT THE BEDSIDE.
[2017-09-11] MEDS: MUPIROCIN CA NASAL 2% 1GM TUBE NS SCH (11:10)
[2017-09-11 12:00] VITALS: BP 144/71
--- NOTE | 2017-09-11 12:23 | NUR ---
PT HAS BEEN REFUSING SOME OF HIS SCHEDULED MEDS, STATED HE DOES NOT WANT TO TAKE THOSE PILLS RIGHT NOW. RISKS AND CONSEQUENCES EXPLAINED TO PT, VERBALIZED UNDERSTANDING.
[2017-09-11] MEDS ORDERED: ARTIFICIAL TEARS OPHTH OINT 3.5 GM TUBE OP PRN (13:45)
[2017-09-11] MEDS: NACL 0.9% 1,000 ML IV SCH (14:12)
[2017-09-11 16:00] VITALS: BP 154/81
[2017-09-11] MEDS ORDERED: HYDRAGUARD CREAM TP PRN (17:00)
--- NOTE | 2017-09-11 18:21 | NUR ---
CALLED CATARINA FROM [facility] AND NOTIFIED HER THE HEMODIALYSIS ORDER FOR TOMORROW.
--- NOTE | 2017-09-11 19:15 | NUR ---
PT AWAKE, WATCHING TV. NO SOB NOTED. NO COMPLAINTS MADE. WILL ENDORSE TO NEXT SHIFT NURSE FOR CONTINUITY OF CARE.
--- NOTE | 2017-09-11 19:16 | NUR ---
RECEIVED REPORT FROM DAY SHIFT RN FOR CONTINUITY OF CARE. PT IS A/OX4, ON ROOM AIR. PT IS ABLE TO MAKE NEEDS KNOWN, ABLE TO FOLLOW COMMANDS. RESPIRATIONS EVEN AND UNLABORED AT THE MOMENT. PT SKIN IS INTACT, BUT HAS A STAGE 1 CLOSED PRESSURE ULCER. PT HAS 22G IV TO RIGHT FOREARM, ASYMPTOMATIC, INTACT AND PATENT. PT HAS RIGHT SUBCLAVIAN IRVIN CATH. DISCUSSED PLAN OF CARE WITH PT, PT VERBALIZED UNDERSTANDING. VITAL SIGNS WITHIN NORMAL LIMITS. PT STABLE, NO SIGNS OF DISTRESS NOTED AT THIS TIME. BED IN LOWEST POSITION, BED ALARM ON. CALL LIGHT WITHIN REACH, WILL CONTINUE TO MONITOR.
[2017-09-11 19:38] VITALS: BP 175/77
[2017-09-11] MEDS: ATORVASTATIN 80 MG TAB PO SCH (20:40)
[2017-09-11] MEDS: CYANOCOBALAMIN 1,000 MCG TAB PO SCH (20:42)
--- NOTE | 2017-09-11 20:43 | NUR ---
ADMINISTERED SCHEDULED MEDICATIONS, PT TOLERATED WELL.
[2017-09-12] VITALS: BP 156/75
--- NOTE | 2017-09-12 | NUR ---
VITAL SIGNS WITHIN NORMAL LIMITS. PT STABLE, NO SIGNS OF DISTRESS NOTED AT THIS TIME. BED IN LOWEST POSITION, BED ALARM ON. CALL LIGHT WITHIN REACH, WILL CONTINUE TO MONITOR.
[2017-09-12] MEDS: HYDRAGUARD CREAM TP SCH ×2 (00:50→13:56)
--- NOTE | 2017-09-12 02:00 | NUR ---
PT COMPLAINING ABOUT SCREAMING FROM ANOTHER PT, CLOSED DOOR SO PT CAN SLEEP. PT STABLE, NO SIGNS OF DISTRESS NOTED AT THIS TIME. BED IN LOWEST POSITION, BED ALARM ON. CALL LIGHT WITHIN REACH, WILL CONTINUE TO MONITOR.
[2017-09-12 04:00] VITALS: BP 132/68
[2017-09-12] MEDS: oxyCODONE/APAP 5/325 MG 1 TAB TAB PO PRN ×2 (04:50→19:58)
--- NOTE | 2017-09-12 04:50 | NUR ---
PT C/O SEVERE GENERALIZED PAIN, ADMINISTERED PERCOCET ORDERED, PT TOLERATED WELL.
[2017-09-12] MEDS: BLOOD GLUCOSE MONITORING 1 DEV DEV FS SCH ×4 (06:03→21:07)
[2017-09-12] MEDS: LEVOTHYROXINE 0.075 MG TAB PO SCH (06:46)
--- NOTE | 2017-09-12 06:47 | NUR ---
ADMINISTERED SCHEDULED MEDICATION, PT TOLERATED WELL. PT TALKING TO DR NO ABOUT POSSIBLE PROCEDURE TODAY. PT NPO OF NOW UNTIL FURTHER NOTICE.
--- NOTE | 2017-09-12 07:30 | NUR ---
RECEIVED ON BED AAO WITH PERIODS FORGETFULNESS. NO SOB NOTED. NO C/O PAIN AT THIS TIME. IV TO RT ARM PATENT AND INTACT. RT CHEST DIALYSIS CATHETER SITE DRESSING DRY, CLEAN AND INTACT. CHEST DIMINISHED AIR ENTRY TO THE BASES, OTHERWISE CLEAR. ABDOMEN, LARGE BUT SOFT, BOWEL SOUNDS PRESENT. PT IS SCHEDULED FOR HD TODAY, PT AWARE. INSTRUCTED PT TO CALL FOR ASSISTANCE. CALL LIGHT WITHIN REACH, PT VERBALIZED UNDERSTANDING.
--- NOTE | 2017-09-12 07:38 | NUR ---
ENDORSED PT TO DAY SHIFT RN FOR CONTINUITY OF CARE. PT IN STABLE CONDITION.
[2017-09-12 08:00] VITALS: BP 107/39
[2017-09-12] MEDS: FERROUS GLUCONATE 324 MG TAB PO SCH (08:00)
[2017-09-12 08:27] LABS: PHOSPHORUS 5.9 mg/dL (2.5-4.9)
--- NOTE | 2017-09-12 08:30 | NUR ---
NPO EXCEPT MEDS MAINTAINED. PT VERBALIZED UNDERSTANDING.
--- NOTE | 2017-09-12 08:35 | NUR ---
HEMODIALYSIS ON GOING AT THE BEDSIDE. VITALS SIGNS STABLE.
[2017-09-12] MEDS: NIFEdipine 60 MG TABER PO SCH (08:42)
[2017-09-12] MEDS: LACTULOSE 20 GM/30 ML UDC PO SCH (08:43)
[2017-09-12] MEDS: POLYETHYLENE GLYCOL 17 GM/PKT PO SCH (08:43)
[2017-09-12] MEDS: DOCUSATE SODIUM 250 MG GELCAP PO SCH ×2 (08:43→21:07)
[2017-09-12] MEDS: CARVEDILOL 12.5 MG TAB PO SCH ×2 (08:43→21:08)
--- NOTE | 2017-09-12 08:44 | NUR ---
RECEIVED ON BED AAO WITH PERIODS FORGETFULNESS. NO SOB NOTED. NO C/O PAIN AT THIS TIME. IV TO RT ARM PATENT AND INTACT. RT CHEST DIALYSIS CATHETER SITE DRESSING DRY, CLEAN AND INTACT. CHEST DIMINISHED AIR ENTRY TO THE BASES, OTHERWISE CLEAR. ABDOMEN, LARGE BUT SOFT, BOWEL SOUNDS PRESENT. PT IS SCHEDULED FOR HD TODAY, PT AWARE. INSTRUCTED PT TO CALL FOR ASSISTANCE. CALL LIGHT WITHIN REACH, PT VERBALIZED UNDERSTANDING. Addendum: 09/12/17 at 1041 by Mercy Roman RN DISREGARD ABOVE NOTES. DUPLICATE.
[2017-09-12] MEDS ORDERED: EPOETIN ALFA 10,000 UNITS/ML VIAL SUBQ SCH (09:00)
--- NOTE | 2017-09-12 09:05 | NUR ---
PT ON NPO FOR TUNNELLED CATHETER PLACEMENT TODAY AFTER HD. PT DID NOT SIGNS THE CONSENT YET PER DR. NO THEY ARE TRYING TO SEE IF IR CAN DO IT.
[2017-09-12 09:15] LABS: WHITE BLOOD COUNT (AUTO) 8.5 K/uL (4.8-10.8)
[2017-09-12 09:16] LABS: EOSINOPHILS % (AUTO) 3.6 % (0.0-4.0); HEMOGLOBIN 9.4 g/dL (12.0-18.0); LYMPHOCYTES % (AUTO) 28.4 % (20.5-51.1); MEAN CORPUSCULAR HEMOGLOBIN 30 pg (27-31); MEAN CORPUSCULAR HGB CONC 32 g/dL (33-37); PLATELET COUNT (AUTO) 379 K/uL (140-450); RED BLOOD CELL COUNT(AUTO) 3.19 MIL/uL (4.20-6.10); RED CELL DISTRIBUTION WIDTH 15.5 % (11.6-13.7)
[2017-09-12] MEDS: FINASTERIDE 5 MG TAB PO SCH (09:30)
[2017-09-12] MEDS: CHOLECALCIFEROL 1,000 IU TAB PO SCH (09:30)
[2017-09-12] MEDS: VIT-B COMP/VIT-C/FOLIC ACID 1 TAB PO SCH (09:30)
[2017-09-12] MEDS: ASPIRIN 81 MG TAB.CHEW PO SCH (09:30)
[2017-09-12] MEDS: CALCIUM ACETATE 667 MG TAB PO SCH ×3 (09:30→17:00)
[2017-09-12] MEDS: ALLOPURINOL 100 MG TAB PO SCH (09:30)
[2017-09-12] MEDS: MUPIROCIN CA NASAL 2% 1GM TUBE NS SCH (09:31)
[2017-09-12] MEDS: CHLORHEXADINE GLUC 2% CLOTH TP SCH (09:38)
[2017-09-12 09:49] LABS: ANION GAP 16.2 (8-16); CARBON DIOXIDE 23.9 mmol/L (21-32); CHLORIDE 96 mmol/L (98-107); GLUCOSE 100 mg/dL (74-106); POTASSIUM 5.1 mmol/L (3.5-5.1); SODIUM SERUM 131 mmol/L (136-145)
[2017-09-12 10:15] LABS: UREA NITROGEN, BLOOD 83 mg/dL (7-18)
[2017-09-12 10:17] LABS: CREATININE 8.5 mg/dL (0.7-1.3)
--- NOTE | 2017-09-12 11:29 | NUR ---
Coal Dumping Equipment Operator Note: Per , patient does not want to return to [facility] , he would like to go to [facility] upon discharge. I faxed inquiry to [facility]. Per Chary from [facility], patient has been accepted and may go to room 9B, accepting physician is , they have a steam shovel runner bed for patient, and will make transportation arrangements for outpatient dialysis treatment, case sealer Sakshi alvarez.
--- NOTE | 2017-09-12 11:30 | NUR ---
PER DR. MOON, IR CAN NOT DO IT. DR. EDMONDSON WILL BE THE ONE TO DO IT LATER TODAY. NPO MAINTAINED.
[2017-09-12 12:00] VITALS: BP 136/68
--- NOTE | 2017-09-12 12:05 | NUR ---
HEMODIALYSIS COMPLETED, 2,000 MLS OUT. VITAL SIGNS STABLE.
--- NOTE | 2017-09-12 14:22 | NUR ---
PT NOTES CHART REVIEWED AND CLEARED FOR PT BY RN. PATIENT IN HIGH LEAHY POSITION RESTING EXPRESSING, "I WANT TO GET OUT OF HERE" PER PATIENT. PATIENT CONTINUES TO DISCUSS WANTING TO LEAVE, "I REFUSED PROCEDURE" PER PATIENT. PATIENT EAGER TO SPEAK WITH DOCTOR. PATIENT DECLINED PARTICIPATION IN THERAPY DESPITE MOTIVATING AND EDUCATING. RN MADE AWARE. WILL ATTEMPT TOMORROW IF POSSIBLE. NO OTHER NEEDS AT THIS TIME. Addendum: 09/12/17 at 1426 by Jyotsna Gerard PT PHYSICAL THERAPY CO-SIGN The Physical Therapy Progress Notes documented by Assembler For Puller Over Machine have been reviewed. WILL FOLLOW UP W/Pt TOMORROW Reviewed/Co-Signed by: Jyotsna Gerard PT Documentation Done by: GABBY CUELLAR, CHRISTINA
[2017-09-12 15:08] LABS: FOLIC ACID 14.9 ng/mL (>3.0)
[2017-09-12 16:00] VITALS: BP 117/72
--- NOTE | 2017-09-12 17:05 | NUR ---
PT REFUSED TO HAVE TELE BOX ON, STATED HE DOES NOT WANT TO HAVE IT ON, RISKS AND CONSEQUENCES EXPLAINED TO PT, VERBALIZED UNDERSTANDING. Addendum: 09/12/17 at 1707 by Mercy Roman RN DR. MOON AND LIAM JACOBS MADE AWARE.
[2017-09-12] MEDS: NACL 0.9% 1,000 ML IV SCH (17:32)
--- NOTE | 2017-09-12 19:05 | NUR ---
PT AWAKE, WATCHING TV. NO SOB NOTED. GEMA ENDORSE TO NEXT SHIFT NURSE FOR CONTINUITY OF CARE.
[2017-09-12 20:00] VITALS: BP 146/69
[2017-09-12] MEDS: CYANOCOBALAMIN 1,000 MCG TAB PO SCH (21:08)
[2017-09-12] MEDS: ATORVASTATIN 80 MG TAB PO SCH (21:09)
--- NOTE | 2017-09-12 21:11 | NUR ---
ADMINISTERED SCHEDULED MEDICATIONS, PT TOLERATED WELL. HELD HEPARIN BECAUSE PT MIGHT HAVE POSSIBLE PROCEDURE TOMORROW.
[2017-09-12] MEDS ORDERED: oxyCODONE/APAP 5/325 MG 1 TAB TAB PO SCH (21:30)
--- NOTE | 2017-09-12 22:20 | NUR ---
SPOKE TO DR LILLY ABOUT SCHEDULED PERCOCET. TOLD HIM ONE WAS ALREADY ADMINISTERED AND THEN THE ORDER FOR TWO PERCOCET PILLS CAME IN. TOLD HIM PT STILL COMPLAINING OF PAIN AND DR ASKED IF PT WAS DROWSY OR SLURRING HIS WORDS, TOLD HIM NO PT IS FINE AND ALERT. SAID IT WAS OK TO GIVE THE ORDER OF TWO PERCOCET. ADMINISTERED MEDICATION, PT TOLERATED WELL.
[2017-09-13] VITALS: BP 143/71
[2017-09-13] MEDS: HYDRAGUARD CREAM TP SCH (00:12)
[2017-09-13 04:00] VITALS: BP 164/89
[2017-09-13] MEDS: BLOOD GLUCOSE MONITORING 1 DEV DEV FS SCH (06:44)
[2017-09-13] MEDS: LEVOTHYROXINE 0.075 MG TAB PO SCH (06:45)
--- NOTE | 2017-09-13 06:46 | NUR ---
ADMINISTERED SCHEDULED MEDICATION, PT TOLERATED WELL. NO INSULIN COVERAGE NEEDED, BS 89.
--- NOTE | 2017-09-13 07:38 | NUR ---
ENDORSED PT TO DAY SHIFT RN FOR CONTINUITY OF CARE. PT IN STABLE CONDITION.
--- NOTE | 2017-09-13 07:39 | NUR ---
RECEIVED REPORT FROM PM NURSE AT THE BEDSIDE. ALL SAFETY MEASURE IN PLACE. WILL CONTINUE TO MONITOR PT.
[2017-09-13] MEDS ORDERED: DEXT 5% / NACL 0.9% 500 ML IV SCH (07:40)
[2017-09-13 08:00] VITALS: BP 158/78
[2017-09-13] MEDS: CALCIUM ACETATE 667 MG TAB PO SCH (09:00)
[2017-09-13] MEDS: LACTULOSE 20 GM/30 ML UDC PO SCH (09:00)
[2017-09-13] MEDS: MUPIROCIN CA NASAL 2% 1GM TUBE NS SCH (09:00)
[2017-09-13] MEDS: FINASTERIDE 5 MG TAB PO SCH (09:00)
[2017-09-13] MEDS: ASPIRIN 81 MG TAB.CHEW PO SCH (09:00)
[2017-09-13] MEDS: DOCUSATE SODIUM 250 MG GELCAP PO SCH (09:00)
[2017-09-13] MEDS: VIT-B COMP/VIT-C/FOLIC ACID 1 TAB PO SCH (09:00)
[2017-09-13] MEDS: CHOLECALCIFEROL 1,000 IU TAB PO SCH (09:00)
[2017-09-13] MEDS: POLYETHYLENE GLYCOL 17 GM/PKT PO SCH (09:00)
[2017-09-13] MEDS: CARVEDILOL 12.5 MG TAB PO SCH (09:04)
[2017-09-13] MEDS: NIFEdipine 60 MG TABER PO SCH (09:05)
--- NOTE | 2017-09-13 09:15 | NUR ---
PT NPO SINCE MIDNIGHT. NO PO MEDS ADMINISTERED. CHARGE NURSE AWARE. WILL CONTINUE TO MONITOR PT.
--- NOTE | 2017-09-13 09:16 | NUR ---
PT NPO SINCE MIDNIGHT FOR POSSIBLE PROCEDURE TO PLACE HIS CATHETER. ADMINISTER PO MEDS FOR HIGH BLOOD PRESSURE. CHARGE NURSE MADE AWARE. PT TOLERATED WELL. PT SITTING ON HIS BED. WATCHING TV.NO SIGN OF DISTRESS. WILL CONTINUE TO MONITOR PT.
[2017-09-13] MEDS ORDERED: Hydraguard TP (10:22)
[2017-09-13] MEDS ORDERED: MINE3.5O5 OP (10:22)
[2017-09-13] MEDS ORDERED: HEPA500056 SUBQ (10:22)
[2017-09-13] MEDS ORDERED: NEP PO (10:22)
[2017-09-13] MEDS ORDERED: ADA60 PO (10:22)
[2017-09-13] MEDS ORDERED: CARV12.52 PO (10:22)
--- NOTE | 2017-09-13 10:30 | NUR ---
GOT CALL FROM THE LAB. STATES THAT PT HAS BEEN REFUSING THE LAB DRAWS.
[2017-09-13] MEDS ORDERED: LIP80 PO (10:55)
--- NOTE | 2017-09-13 11:30 | NUR ---
CHECKED ON PT. EXPLAINED THAT HE IS GOING TO GET TRANSFERED TO [facility] FOR HIGHER LEVEL OF CARE. PT VERBALIZED UNDERSTANDING OF TEACHING. WORKING ON HER DISCHARGE PAPER. WILL CONTINUE TO MONITOR PT.
[2017-09-13] MEDS: oxyCODONE/APAP 5/325 MG 1 TAB TAB PO PRN (11:41)
[2017-09-13 12:07] VITALS: BP 156/78
--- NOTE | 2017-09-13 12:45 | NUR ---
PT LFT THE HOSPITAL WITH [facility] VIA AMBULANCE TO [facility]. PT IN STABLE CONDITION. WOUND PICTURE TAKEN. IV SITE ON LFT FA 22 G , INTACT AND PATENT. REPORT WAS GIVEN TO THE RN LARY , PH# [phone]. GAVE BACK THE CALL BACK NUMBER FOR ANY QUESTION.
--- NOTE | 2017-09-13 15:15 | NUR ---
PT NOTES SPOKE W/ PATIENT'S RN "JEANIE" RN STATED THAT PATIENT WAS TRANSFERRED TO [place]. NO REHAB SERVICES RENDERED. DISCUSS W/ PRIMARY PHYSICAL THERAPIST.
== END 2017-09-13 12:45 | disposition short-term general hospital (02) | DRG 314 ==
LOC: MED 11:17 → MTU 14:17
PROVIDERS: ADMIT Family Medicine; ATTEND Family Medicine
PROC: 05H533Z Insertion of Infusion Device into Right Subclavian Vein, Percutaneous Approach (ICD-10-PCS; principal; 2017-09-09)
PROC: B546ZZA Ultrasonography of Right Subclavian Vein, Guidance (ICD-10-PCS; 2017-09-09)
PROC: 5A1D70Z Performance of Urinary Filtration, Intermittent, Less than 6 Hours Per Day (ICD-10-PCS; 2017-09-10)
PROC: 5A1D70Z Performance of Urinary Filtration, Intermittent, Less than 6 Hours Per Day (ICD-10-PCS; 2017-09-12)
DX: T82.41XA Breakdown (mechanical) of vascular dialysis catheter, initial encounter (principal); N17.0 Acute kidney failure with tubular necrosis; E43 Unspecified severe protein-calorie malnutrition; I50.43 Acute on chronic combined systolic (congestive) and diastolic (congestive) heart failure; N18.6 End stage renal disease; E87.1 Hypo-osmolality and hyponatremia; D68.59 Other primary thrombophilia; I13.2 Hypertensive heart and chronic kidney disease with heart failure and with stage 5 chronic kidney disease, or end stage renal disease; E78.5 Hyperlipidemia, unspecified; E03.9 Hypothyroidism, unspecified; J44.9 Chronic obstructive pulmonary disease, unspecified; Z96.653 Presence of artificial knee joint, bilateral; G47.33 Obstructive sleep apnea (adult) (pediatric); E11.22 Type 2 diabetes mellitus with diabetic chronic kidney disease; H40.9 Unspecified glaucoma; E11.21 Type 2 diabetes mellitus with diabetic nephropathy; D53.1 Other megaloblastic anemias, not elsewhere classified; E66.01 Morbid (severe) obesity due to excess calories; E83.39 Other disorders of phosphorus metabolism; M10.9 Gout, unspecified; N40.0 Benign prostatic hyperplasia without lower urinary tract symptoms; K21.9 Gastro-esophageal reflux disease without esophagitis; G47.419 Narcolepsy without cataplexy; F32.9 Major depressive disorder, single episode, unspecified; Z96.612 Presence of left artificial shoulder joint; Z96.611 Presence of right artificial shoulder joint; I25.10 Atherosclerotic heart disease of native coronary artery without angina pectoris; M17.0 Bilateral primary osteoarthritis of knee; L98.499 Non-pressure chronic ulcer of skin of other sites with unspecified severity; D50.8 Other iron deficiency anemias; E11.69 Type 2 diabetes mellitus with other specified complication; E11.51 Type 2 diabetes mellitus with diabetic peripheral angiopathy without gangrene; Y83.8 Other surgical procedures as the cause of abnormal reaction of the patient, or of later complication, without mention of misadventure at the time of the procedure; Y92.89 Other specified places as the place of occurrence of the external cause; Z99.2 Dependence on renal dialysis; Z68.39 Body mass index [BMI] 39.0-39.9, adult; Z88.5 Allergy status to narcotic agent; Z88.0 Allergy status to penicillin; Z88.8 Allergy status to other drugs, medicaments and biological substances; Z79.82 Long term (current) use of aspirin; Z79.899 Other long term (current) drug therapy; Z91.15 Patient's noncompliance with renal dialysis; Z86.14 Personal history of Methicillin resistant Staphylococcus aureus infection; Z87.11 Personal history of peptic ulcer disease; Z98.61 Coronary angioplasty status
CPT/HCPCS: 36415; 71045; 80048; 80053; 82150; 82607; 82728; 82746; 82948; 83036; 83540; 83690; 83735; 83880; 84100; 84134; 84443; 84484; 85025; 85045; 85610; 85730; 87081; 93005; 97140; 97535; 99285; J0885; J1644; J1815; J2270; J2405; J2997; J3420; J7030; J7042; Q0092

== ENCOUNTER 2018-07-15 20:05 | Inpatient (IN) | payer OTHER, MEDICAID ==
[~2018-07-15] VITALS: Ht 165.1 cm; Wt 99.8 kg
[~2018-07-15 20:05] MED LIST changes: +ADA60 PO; +ASPI-1718 PO; -ASPI81CT89 PO; -BUME1TAB4 PO; +BUME1TAB92 PO; +CARV12.52 PO; +CYAN100T65 PO; +HEPA500056 SUBQ; -HYDR-3233 PO; +Hydraguard TP; -ISOS10TA9 PO; +MINE3.5O5 OP; +NEP PO; -NYST100022 PO; -VITB12 PO
--- NOTE | 2018-07-15 20:05 | NUR ---
PT ANNIA BLS TO ER BED 08
[2018-07-15 20:06] VITALS: BP 152/71
--- NOTE | 2018-07-15 20:10 | NUR ---
77 Y/O M BIBA WITH C/O BILATERAL KNEE PAIN. PT HAD BILATERAL KNEE REPLACEMENT [id number]. AAOX4. 6/10 PAIN, ACHING AND CONSTANT. EDEMA AND REDNESS NOTED TO R KNEE. PURELENT DRAINAGE NOTED TO L KNEE. SKIN WARM TO TOUCH. PEDAL PULSES PRESENT. ERMD NOTIFIED. WILL CONTINUE TO MONITOR.
[2018-07-15] MEDS ORDERED: CHOL100037 PO (20:41)
[2018-07-15] MEDS ORDERED: LEVA1.255 IH (20:41)
[2018-07-15] MEDS ORDERED: TRAV5SOL RIGHT EYE (20:41)
[2018-07-15] MEDS ORDERED: DIPH25TA53 PO (20:41)
[2018-07-15] MEDS ORDERED: CETI-32 PO (20:41)
[2018-07-15] MEDS ORDERED: BRIM5SOL1 LEFT EYE (20:41)
[2018-07-15] MEDS ORDERED: BUME1TAB92 PO (20:41)
[2018-07-15] MEDS ORDERED: TRAM50TA1 PO (20:41)
[2018-07-15] MEDS ORDERED: BRIM5SOL1 RIGHT EYE (20:41)
[2018-07-15] MEDS ORDERED: HYDR-5122 PO (20:41)
[2018-07-15] MEDS ORDERED: ACET-2619 PO (20:41)
[2018-07-15] MEDS ORDERED: AMLO10TA PO (20:41)
[2018-07-15] MEDS ORDERED: FINA1TAB30 PO (20:41)
[2018-07-15] MEDS ORDERED: RANI-635 PO (20:41)
[2018-07-15] MEDS ORDERED: NACL 0.9% 1,000 ML IV ONE (21:25)
--- NOTE | 2018-07-15 21:36 | NUR ---
XRAY AT BEDSIDE FOR INTERVENTION.
--- NOTE | 2018-07-15 22:15 | NUR ---
PT AWAKE. VSS. WILL CONTINUE TO MONITOR.
[2018-07-15 22:16] LABS: BASOPHILS # (AUTO) 0.1 K/uL (0.00-0.22); BASOPHILS % (AUTO) 0.8 % (0.0-2.0); EOSINOPHILS # (AUTO) 0.3 K/uL (0-0.4); EOSINOPHILS % (AUTO) 2.5 % (0.0-4.0); HEMATOCRIT 29.1 % (36-52); LYMPHOCYTES # (AUTO) 2.2 K/uL (2.0-11.5); LYMPHOCYTES % (AUTO) 18.5 % (20.5-51.1); MEAN CORPUSCULAR HEMOGLOBIN 28 pg (27-31); MEAN CORPUSCULAR HGB CONC 31 g/dL (33-37); MEAN CORPUSCULAR VOLUME 91.3 fL (80-94); NEUTROPHILS % (AUTO) 69.2 % (42.2-75.2); PLATELET COUNT (AUTO) 461 K/uL (140-450); RED BLOOD CELL COUNT(AUTO) 3.19 MIL/uL (4.20-6.10); RED CELL DISTRIBUTION WIDTH 16.3 % (11.6-13.7); WHITE BLOOD COUNT (AUTO) 11.6 K/uL (4.8-10.8)
[2018-07-15 22:37] LABS: ALBUMIN 2.2 g/dL (3.4-5.0); ANION GAP 11.7 (8-16); ASPARTATE AMINOTRANSFERASE 22 U/L (15-37); CHLORIDE 98 mmol/L (98-107); GLUCOSE 111 mg/dL (74-106); POTASSIUM 4.7 mmol/L (3.5-5.1); SODIUM SERUM 134 mmol/L (136-145); TOTAL BILIRUBIN 0.3 mg/dL (0.0-1.0)
[2018-07-15 22:38] LABS: UREA NITROGEN, BLOOD 69 mg/dL (7-18)
[2018-07-15 22:39] LABS: CREATININE 7.2 mg/dL (0.7-1.3)
--- NOTE | 2018-07-15 23:00 | NUR ---
PT AWAKE, LYING SUSPINE. HEARD CALLING FOR STAFF. PT NEEDS MET. WILL CONTINUE TO MONITOR.
[2018-07-15] MEDS ORDERED: SULFAMETH/TRIMETH DS 800/160MG 1 TAB PO ONE (23:40)
[2018-07-15] MEDS ORDERED: CLINDAMYCIN 600 MG in DEXTROSE 5% 50 ML IV ONE (23:40)
[2018-07-15] MEDS ORDERED: CLINDAMYCIN 600 MG/4 ML VIAL ONE (23:59)
--- NOTE | 2018-07-16 01:13 | NUR ---
Pt given food. VSS at this time. Will continue to monitor.
[2018-07-16] MEDS: NACL 0.9% 1,000 ML IV SCH (02:08)
[2018-07-16] MEDS ORDERED: VANCOMYCIN PER PHARMACY MC PRN ×2 (02:10→23:45)
[2018-07-16] MEDS ORDERED: DOCUSATE SODIUM 100 MG GELCAP PO PRN (02:10)
[2018-07-16] MEDS ORDERED: ACETAMINOPHEN 325 MG TAB PO PRN (02:10)
--- NOTE | 2018-07-16 02:20 | NUR ---
Patient will be admitted to care of Dr. Bills. Admited to [facility]. Will go to room 105A. Belongings list completed. VSS at time of transport. Report to HANH Carmona. Transfer of care at this time.
[2018-07-16 02:22] VITALS: BP 106/57
--- NOTE | 2018-07-16 02:22 | NUR ---
REPORT RECEIVED FROM ED NURSE AT BEDSIDE. PT IN STABLE CONDITION. AAOX4. INTRODUCED SELF TO PT. BOARD UPDATED. NO COMPLAINTS OF PAIN. NO SOB. AFEBRILE. IV SITE L FA 22G RUNNING NS@2ML/HR PATENT AND INTACT. SKIN WARM, DRY, AND NOT INTACT DUE TO BILATERAL KNEE OPEN WOUNDS. PT HAS R AV SHUNT. PT HAS PACEMAKER L UPPER CHEST. PT HAS CKD, ON HD MONDAY, MONDAY, MONDAY. BED LOCKED IN LOW POSITION. CALL WILLARD WITHIN REACH. SAFETY PRECAUTIONS IN PLACE. ALL NEEDS MET AT THIS TIME. Addendum: 07/16/18 at 0554 by Mathew Gallardo RN URINE CULTURE RECEIVED. MRSA SCREEN OBTAINED. BILATERAL KNEE WOUND CULTURES OBTAINED. ALL SPECIMENS SENT TO LAB.
[2018-07-16 02:36] LABS: PROTHROMBIN TIME 10.8 secs (10.8-13.4)
[2018-07-16] MEDS ORDERED: CETIRIZINE HCL 10 MG PO PRN (02:40)
[2018-07-16] MEDS ORDERED: DIPHENHYDRAMINE HCL 25 MG PO PRN (02:40)
[2018-07-16] MEDS ORDERED: LEVALBUTEROL HCL 1.25 MG IH PRN (02:40)
[2018-07-16 02:45] LABS: CHOL/HDL RATIO 3.3 (1-4.5); MAGNESIUM 2.4 mg/dL (1.8-2.4); PHOSPHORUS 3.7 mg/dL (2.5-4.9); THYROID STIMULATING HORMONE 12.74 uIU/mL (0.34-3.74)
[2018-07-16] MEDS ORDERED: VANCOMYCIN 1,000 MG VIAL ONE ×2 (03:25→05:04)
[2018-07-16] MEDS: VANCOMYCIN 1,000 MG in DEXTROSE 5% 250 ML IV SCH ×2 (03:27→04:57)
--- NOTE | 2018-07-16 03:27 | NUR ---
TIGIST CONNOR AND RUNNING. PT TOLERATING WELL.
[2018-07-16 04:00] VITALS: BP 119/63
[2018-07-16] MEDS ORDERED: ALBUTEROL SULFATE/IPRATROPIU 3 ML SOL IH PRN (04:00)
[2018-07-16] MEDS ORDERED: DEXTROSE 50% 50 ML SYR IVP PRN (04:05)
--- NOTE | 2018-07-16 04:57 | NUR ---
TIGIST CONNOR AND RUNNING. PT TOLERATING WELL.
[2018-07-16 06:02] LABS: APPEARANCE,URINE CLEAR (CLEAR); BILIRUBIN,URINE NEGATIVE (NEGATIVE); BLOOD, URINE 2+ (NEGATIVE); COLOR,URINE YELLOW (YELLOW); LEUKOCYTE ESTERASE ,URINE NEGATIVE (NEGATIVE); NITRITE, URINE NEGATIVE (NEGATIVE); PH,URINE 8.5 (5.0-9.0); UGLUCOSE 1+ (NEGATIVE)
[2018-07-16] MEDS: LEVOTHYROXINE 0.075 MG TAB PO SCH (06:03)
--- NOTE | 2018-07-16 06:03 | NUR ---
SYNTHROID GIVEN TO PT. PT TOLERATED WELL. BS 118. NO INSULIN COVERAGE NEEDED.
[2018-07-16 06:11] LABS: RBC,URINE 11-20 (MOD) /HPF (0-5); WBC,URINE 0-5 /HPF (0-5)
[2018-07-16] MEDS: BLOOD GLUCOSE MONITORING 1 DEV DEV FS SCH ×4 (06:32→20:48)
--- NOTE | 2018-07-16 07:27 | NUR ---
REPORT GIVEN TO AM NURSE AT BEDSIDE. PT IN STABLE CONDITION.
--- NOTE | 2018-07-16 07:28 | NUR ---
RECEIVED REPORT FROM GIS PHYSICAL SCIENTIST NURSE. PATIENT LYING DOWN IN BED WATCHING TV. NO DISTRESS NOTED. DENIES ANY PAIN. AAOX3, CALM, COOPERATIVE, SKIN COLOR APPROPRIATE TO ETHNICITY, WARM TO TOUCH. HAS B/L KNEE WOUNDS. RESPIRATIONS EVEN, UNLABORED, ON ROOM. HAS RIGHT FOREARM AV FISTULA, PATENT. IV SITE INTACT, PATENT, ON IVF PER MD ORDERS. REVIEWED PLAN OF CARE WITH PATIENT. PATIENT VERBALIZED UNDERSTANDING. SAFETY MEASURES IN PLACE, CALL LIGHT WITHIN REACH. WILL CONTINUE TO MONITOR.
[2018-07-16 08:00] VITALS: BP 141/66
[2018-07-16] MEDS ORDERED: LORATADINE 10 MG TAB PO PRN (08:40)
[2018-07-16] MEDS ORDERED: RANITIDINE HCL 75 MG PO SCH (09:00)
[2018-07-16] MEDS ORDERED: NON-FORMULARY ITEM (Brimonidine Tartrate* (Alphagan P 0.15% Opth Soln*) 1 DROP) RIGHT EYE SCH (09:00)
[2018-07-16] MEDS ORDERED: DOCUSATE SODIUM 100 MG GELCAP PO SCH (09:00)
[2018-07-16] MEDS ORDERED: FINASTERIDE 1 MG PO SCH (09:00)
[2018-07-16] MEDS ORDERED: NON-FORMULARY ITEM (Brimonidine Tartrate* (Alphagan P 0.15% Opth Soln*) 1 DROP) LEFT EYE SCH (09:00)
[2018-07-16] MEDS: ALLOPURINOL 100 MG TAB PO SCH (09:18)
[2018-07-16] MEDS: LACTOBACILLUS RHAMNOSUS GG 1 EACH CAP PO SCH (09:18)
[2018-07-16] MEDS: CHOLECALCIFEROL 1,000 IU TAB PO SCH (09:18)
[2018-07-16] MEDS: amLODIPine 5 MG TAB PO SCH (09:19)
[2018-07-16] MEDS: FERROUS SULFATE 325 MG TABEC PO SCH ×2 (09:19→20:38)
[2018-07-16] MEDS: VIT-B COMP/VIT-C/FOLIC ACID 1 TAB PO SCH (09:19)
[2018-07-16] MEDS: BUMETANIDE 1 MG TAB PO SCH ×3 (09:19→16:30)
[2018-07-16] MEDS: ASPIRIN 81 MG TAB.CHEW PO SCH (09:20)
[2018-07-16] MEDS: predniSONE 20 MG TAB PO SCH (09:20)
[2018-07-16] MEDS: FAMOTIDINE 20 MG TAB PO SCH (09:20)
[2018-07-16] MEDS: ERYTHROMYCIN 0.5% OPTH OINT 1 GM TUBE OP SCH ×2 (09:21→20:39)
[2018-07-16] MEDS: traMADol 50 MG TAB PO PRN (09:29)
--- NOTE | 2018-07-16 09:33 | NUR ---
PATIENT SITTING DOWN IN BED SLEEPING, AROUSABLE BY VOICE. NO DISTRESS NOTED. COMPLAINS OF B/L KNEE PAIN. ULTRAM GIVEN AT THIS TIME. OTHER SCHEDULED MEDICATIONS DUE GIVEN. WILL CONTINUE TO MONITOR.
[2018-07-16 12:00] VITALS: BP 136/67
[2018-07-16] MEDS: CALCIUM ACETATE 667 MG TAB PO SCH ×2 (12:47→16:30)
[2018-07-16] MEDS: INSULIN LISPRO SLIDING SCALE 100 UNITS/ML VIAL SUBQ PRN ×3 (12:47→20:40)
--- NOTE | 2018-07-16 12:51 | NUR ---
PATIENT SITTING IN BED WITH LUNCH TRAY IN FRONT. NO DISTRESS NOTED. DENIES ANY PAIN. SCHEDULED MEDICATIONS DUE GIVEN. WILL CONTINUE TO MONITOR.
--- NOTE | 2018-07-16 13:22 | NUR ---
PATIENT HAS BEEN SCREENED AND CATEGORIZED HIGH NUTRITION RISK. PATIENT WILL BE SEEN WITHIN 1-2 DAYS OF ADMISSION. 07/16/18KARSON VILLATORO MBA, RD
[2018-07-16 16:00] VITALS: BP 130/65
[2018-07-16] MEDS: CYANOCOBALAMIN 1,000 MCG TAB PO SCH (16:30)
--- NOTE | 2018-07-16 16:32 | NUR ---
ASSISTED IUSS MASTER ANALYST IN CLEANING AND REPOSITIONING PATIENT. SCHEDULED MEDICATIONS DUE GIVEN. WILL CONTINUE TO MONITOR.
--- NOTE | 2018-07-16 18:45 | NUR ---
CALLED MS ELMORE, HEMODIALYSIS NURSE AND NOTIFIED HER REGARDING HD SCHEDULED FOR TOMORROW. MS. ELMORE VERBALIZED UNDERSTANDING. WILL CONTINUE TO MONITOR.
--- NOTE | 2018-07-16 19:29 | NUR ---
GAVE REPORT TO FRUIT EXPRESS AGENT NURSE FOR CONTINUITY OF CARE. PATIENT IN STABLE CONDITION.
--- NOTE | 2018-07-16 19:30 | NUR ---
RECEIVED PT ON BED, AAOX4, ABLE TO MAKE NEEDS KNOWN, VITAL SIGNS STABLE, DENIES ANY PAIN, DRESSING TO BLE DRY AND INTACT, IVF INFUSING WELL, PLAN OF CARE DISCUSS, INSTRUCTED NPO EXCEPT MEDS STATUS, PT REQUESTING IF HE CAN HAVE A SNACK TONIGHT BECAUSE HE IS DIABETIC, WILL CALL RESIDENT ON DUTY, SAFETY MEASURES IN PLACE, CALL LIGHT WITHIN REACH.
[2018-07-16 20:00] VITALS: BP 136/67
--- NOTE | 2018-07-16 20:20 | NUR ---
PT HAD MODERATE SOFT BM, CLEANED AND REPOSITIONED.
[2018-07-16] MEDS: LATANOPROST 0.005% OP 2.5 ML BTL OP SCH (20:38)
[2018-07-16] MEDS: ATORVASTATIN 80 MG TAB PO SCH (20:38)
[2018-07-16] MEDS: DOCUSATE SODIUM 250 MG GELCAP PO SCH (20:48)
[2018-07-16] MEDS ORDERED: NON-FORMULARY ITEM (Travoprost (Travatan Z 5 Ml) 1 DROP) RIGHT EYE SCH (21:00)
[2018-07-16] MEDS ORDERED: NON-FORMULARY ITEM (Cholecalciferol (Vitamin D3) (Vitamin D3) 1,000 IU) PO SCH (21:00)
--- NOTE | 2018-07-16 21:00 | NUR ---
DR BRADY MADE AWARE OF PT'S REQUEST, STATED JUANA TO GIVE SNACKS AND NPO EXCEPT MEDS AFTER MIDNIGHT, BLOOD SUGAR CHECKED WITH 241 RESULT, COVERAGE GIVEN, SNACK PROVIDED, CONSUMED 100%, DUE MEDS ADMINISTERED, ALL NEEDS ATTENDED.
[2018-07-17] VITALS: BP_SYST 115; BP_SYST 117; BP_DIAS 49; BP_DIAS 83
--- NOTE | 2018-07-17 | NUR ---
PT SLEEPING, EASILY AROUSABLE, VITAL SIGNS STABLE, DENIES ANY PAIN, NO SOB NOTED, CONTINUE TO MONITOR CLOSELY.
[2018-07-17] MEDS: NACL 0.9% 1,000 ML IV SCH (02:08)
[2018-07-17 04:30] VITALS: BP 121/53
--- NOTE | 2018-07-17 04:30 | NUR ---
PT SLEEPING ON HIS LEFT SIDE, EASILY AROUSABLE, VITAL SIGNS STABLE, DENIES ANY PAIN, NO SOB NOTED, MONITORED CLOSELY.
[2018-07-17] MEDS: LEVOTHYROXINE 0.075 MG TAB PO SCH (05:51)
[2018-07-17] MEDS: traMADol 50 MG TAB PO PRN (05:54)
--- NOTE | 2018-07-17 05:58 | NUR ---
DRESSING CHANGED DONE TO BOTH NUSRAT KNEE WOUND, MORE PURULENT DRAINAGE NOTED TO LEFT KNEE WOUND, MEDICATED WITH TRAMADOL PO FOR PAIN, BLOOD SUGAR CHECKED WITH 132 RESULT, MAINTAINED ON NPO, PT DOESN'T WANT TO SIGN THE HEMODIALYSIS CONSENT AT THIS TIME STATED "LATER", WILL ENDORSE TO AM SHIFT, MONITORED CLOSELY.
[2018-07-17] MEDS: BLOOD GLUCOSE MONITORING 1 DEV DEV FS SCH ×3 (06:47→16:30)
--- NOTE | 2018-07-17 07:16 | NUR ---
PT AWAKE, NO SIGNS OF DISTRESS, REPORT GIVEN TO RN ROSEMARIE FOR CONTINUITY OF CARE.
--- NOTE | 2018-07-17 07:25 | NUR ---
REPORT RECEIVED FROM UNIFORM DESIGNER NURSE ROSE MARIE, PT RESTING QUIETLY IN NO ACUTE DISTRESS, ALERT ORIENTED, CLEAR SPEECH, NO C/O PAIN, RESP EVEN UNLABORED, SKIN WARM DRY COLOR WNL, PLAN OF CARE REVIEWED, NO IMMEDIATE NEEDS AT THIS TIME, WILL CONTINUE TO MONITOR.
[2018-07-17 07:53] LABS: BASOPHILS % (AUTO) 0.4 % (0.0-2.0); EOSINOPHILS % (AUTO) 0.1 % (0.0-4.0); HEMATOCRIT 26.3 % (36-52); HEMOGLOBIN 8.2 g/dL (12.0-18.0); LYMPHOCYTES # (AUTO) 1.6 K/uL (2.0-11.5); LYMPHOCYTES % (AUTO) 18.9 % (20.5-51.1); MEAN CORPUSCULAR HEMOGLOBIN 28 pg (27-31); MEAN CORPUSCULAR HGB CONC 31 g/dL (33-37); MONOCYTES # (AUTO) 0.4 K/uL (0.8-1.0); MONOCYTES % (AUTO) 4.9 % (1.7-9.3); NEUTROPHILS # (AUTO) 6.5 K/uL (1.8-7.7); NEUTROPHILS % (AUTO) 75.7 % (42.2-75.2); PLATELET COUNT (AUTO) 445 K/uL (140-450); RED CELL DISTRIBUTION WIDTH 15.9 % (11.6-13.7); WHITE BLOOD COUNT (AUTO) 8.6 K/uL (4.8-10.8)
[2018-07-17 08:00] VITALS: BP 134/75
--- NOTE | 2018-07-17 08:00 | NUR ---
DIALYSIS NURSE AT BEDSIDE.
[2018-07-17 08:13] LABS: ANION GAP 18.1 (8-16); CARBON DIOXIDE 25.9 mmol/L (21-32); CHLORIDE 95 mmol/L (98-107); GLUCOSE 142 mg/dL (74-106); SODIUM SERUM 133 mmol/L (136-145)
[2018-07-17 08:19] LABS: MAGNESIUM 2.4 mg/dL (1.8-2.4); PHOSPHORUS 4.4 mg/dL (2.5-4.9)
[2018-07-17 08:20] LABS: CREATININE 8.4 mg/dL (0.7-1.3); UREA NITROGEN, BLOOD 89 mg/dL (7-18)
[2018-07-17] MEDS: BUMETANIDE 1 MG TAB PO SCH ×3 (08:47→17:23)
[2018-07-17] MEDS: amLODIPine 5 MG TAB PO SCH (08:48)
[2018-07-17] MEDS: ERYTHROMYCIN 0.5% OPTH OINT 1 GM TUBE OP SCH ×2 (09:00→21:57)
[2018-07-17] MEDS: predniSONE 20 MG TAB PO SCH (09:08)
[2018-07-17] MEDS: CALCIUM ACETATE 667 MG TAB PO SCH ×3 (09:08→17:23)
[2018-07-17] MEDS: VIT-B COMP/VIT-C/FOLIC ACID 1 TAB PO SCH (09:09)
[2018-07-17] MEDS: FERROUS SULFATE 325 MG TABEC PO SCH ×2 (09:09→21:58)
[2018-07-17] MEDS: DOCUSATE SODIUM 250 MG GELCAP PO SCH ×2 (09:09→21:58)
[2018-07-17] MEDS: CHOLECALCIFEROL 1,000 IU TAB PO SCH (09:10)
[2018-07-17] MEDS: ALLOPURINOL 100 MG TAB PO SCH (09:10)
[2018-07-17] MEDS: LACTOBACILLUS RHAMNOSUS GG 1 EACH CAP PO SCH (09:10)
[2018-07-17] MEDS: ASPIRIN 81 MG TAB.CHEW PO SCH (09:10)
[2018-07-17] MEDS: EPOETIN ALFA 10,000 UNITS/ML VIAL HD SCH (09:11)
--- NOTE | 2018-07-17 11:31 | NUR ---
DIALYSIS COMPLETED, 2.6L TAKEN OUT PER REPORT.
[2018-07-17 12:00] VITALS: BP 134/64
[2018-07-17] MEDS: INSULIN LISPRO SLIDING SCALE 100 UNITS/ML VIAL SUBQ PRN ×3 (12:23→22:23)
--- NOTE | 2018-07-17 12:30 | NUR ---
PT SITTING UP READY TO EAT LUNCH, 4 UNITS OF INSULIN GIVEN FOR 236, PT DENIES ANY OTHER NEEDS WILL CONTINUE TO MOTNIOR
--- NOTE | 2018-07-17 14:22 | NUR ---
PT SLEEPING QUIETLY IN NO ACUTE DISTRESS, CALL WILLARD WITHIN REACH, WILL CONTINUE TO MONITOR.
--- NOTE | 2018-07-17 14:45 | NUR ---
WOUND CARE EVALUATION NOTES: REASON FOR EVALUATION: BILATERAL KNEE WOUND SKIN ASSESSMENT DONE ON THIS 77 Y/O MALE PATIENT TO [facility], WITH INITIAL DIAGNOSIS OF KNEES PAIN. PAST MEDICAL HISTORY INCLUDE COPD, DIABETES AND ESRD ON HD AND HX OF BILATERAL KNEE SURGERY. ALL ABOVE INFORMATION WAS OBTAINED FROM THE ADMISSION H&P AND PT. PER PT. HE STATED " MY ORTHO PEDIC DOCTOR TOLD ME THE RIGHT AND LEFT BELOW KNEES OPEN WOUNDS DUE TO MANAGER CLIENT SERVICE FROM LAST KNEE PLACEMENTS" PATIENT IS AAX4, AWAKE ABLE TO TURN. SKIN WARM TO TOUCH, BLE NO EDEMA,MULTIPLE SCABS, NO HAIR GROWTH AND BILATERAL PEDAL PULSES PRESENT. PLAN OF CARE AND PRESSURE PREVENTIVE MEASURES DISCUSSED WITH PT AND PRIMARY NURSE. PT VERBALIZE UNDERSTANDING. INTEGUMENTARY: -UPPER AND LOWER EXTREMITIES DRYNESS, LEFT UPPER ARM AV SHUNT DRESSING IN PLACE DRY AND CLEAN. -BLE BROWN COLOR PIGMENTATION SKIN INTACT WITH SCABS -RIGHT AND LEFT BELOW KNEES OPEN WOUNDS EACH MEASURERS 0.3X0.3X0.5CM, BRII WOUND SKIN INTACT, WOUND BED IS RED, SMALL AMOUNT PURULENT DRAINAGE, NO ODOR, PAIN 2/10 -RIGHT 3RD TOE AMPUTATION OLD HEALED SCAR. RECOMMENDATIONS: -WOUND CULTURE PENDING -X-RAY/BONE SCAN FOR BILATERAL KNEE -APPLY HYDRAGUARD TO UPPER AND LOWER EXTREMITIES DRYNESS BIDWC -CLEANSE RIGHT AND LEFT BELOW KNEES OPEN WOUNDS WITH NS. PAT DRY , APPLY ADAPTIC DRESSING AND COVER WITH DRY DRESSING QD AND PRN IF SOILING. -TURN AND REPOSITION PATIENT Q2H -ASSESS AND MONITOR SKIN CONDITION DURING POSITION CHANGE -OFFLOAD BILATERAL HEELS BY PLACING PILLOWS UNDER CALVES AT ALL TIMES, UNLESS OTHERWISE CONTRAINDICATED RECOMMENDATIONS DISCUSSED WITH PRIMARY RN WILL FOLLOW UP PATIENT Q 7 -10 DAYS AND PRN. PLEASE CONTACT WOUND CARE NURSE FOR ANY QUESTION OR CHANGES IN WOUND CONDITION
--- NOTE | 2018-07-17 15:39 | NUR ---
07/17/18 RD INITIAL ASSESSMENT COMPLETED PLEASE REFER TO NUTRITION ASSESSMENT UNDER CARE ACTIVITY FOR ESTIMATED NUTRITIONAL NEEDS. 1. CONTINUE RENAL, CCHO 60GM, CARDIAC DIET TOLERATED 2. RD PROVIDED RENAL DIET EDUCATION 3. RD TO FOLLOW-UP 3-5 DAYS, MODERATE RISK ELOY ELMORE, RD
[2018-07-17 16:00] VITALS: BP 128/61
--- NOTE | 2018-07-17 16:10 | NUR ---
IV ACCIDENTALLY DISLODGED, CATH TIP INTACT, BLEEDING CONTROLLED, NEW IV 22G STARTED TO LEFT HAND, PT JASPREET WELL. AUTHORIZATION FOR RELEASE OF MEDICAL INFORMATION SIGNED BY PT, FAXED TO [facility].
--- NOTE | 2018-07-17 16:18 | NUR ---
NUCLEAR MED TECHOLENA AT BEDSIDE, PT TAKEN TO RADIOLOGY.
[2018-07-17] MEDS ORDERED: VANCOMYCIN 1,500 MG in DEXTROSE 5% 500 ML IV SCH (17:00)
--- NOTE | 2018-07-17 17:09 | NUR ---
PT RETURNED BACK TO 114, TERMITE TREATER HELPER AT BEDSIDE FOR BED BATH AND LINEN CHANGE.
[2018-07-17] MEDS: CYANOCOBALAMIN 1,000 MCG TAB PO SCH (17:22)
--- NOTE | 2018-07-17 17:31 | NUR ---
TIGIST IVPB STARTED PER ORDER, IV SITE WNL.
--- NOTE | 2018-07-17 19:16 | NUR ---
REPORT GIVEN TO RN GYN NURSE QUINN, PT AWAKE ALERT, RESTING QUIETLY IN NAD.
--- NOTE | 2018-07-17 19:17 | NUR ---
RECEIVED REPORT FROM DAY SHIFT RNROSEMARIE. PATIENT AWAKE AND RESTING WITH NO SIGNS OF DISTRESS ON RA, SAFETY PRECAUTIONS IN PLACE.
[2018-07-17 20:00] VITALS: BP_SYST 145; BP_SYST 45; BP_DIAS 70
[2018-07-17] MEDS: ATORVASTATIN 80 MG TAB PO SCH (21:58)
--- NOTE | 2018-07-17 21:58 | NUR ---
ADMINISTERED SCHEDULED MEDICATIONS. PATIENT TOLERATED WELL. BLOOD SUGAR 199, ADMINISTERED 2 UNITS HUMALOG SQ. PATIENT REQUESTING TO SLEEP, NS FLUID INFUSING AT 2ML/HR TO LEFT HAND. SAFETY PRECAUTIONS IN PLACE. CALL LIGHT IN REACH
[2018-07-17] MEDS: LATANOPROST 0.005% OP 2.5 ML BTL OP SCH (21:59)
[2018-07-18] VITALS: BP 140/72
--- NOTE | 2018-07-18 00:22 | NUR ---
PATIENT SLEEPING. VITALS STABLE. SAFETY PRECAUTIONS IN PLACE. WILL CONTINUE TO MONITOR.
[2018-07-18] MEDS: NACL 0.9% 1,000 ML IV SCH (02:08)
--- NOTE | 2018-07-18 02:45 | NUR ---
PATIENT AWAKE. ASSISTED PATIENT TO USE URINAL. PATIENT VOIDED 50 ML. BILATERAL KNEE DRESSINGS ARE NOW SOILED, AND LEFT KNEE DRESSING IS LEAKING SEROSANGUINEOUS FLUID. CLEANED PATIENT. PROVIDED WOUND CARE AND APPLIED NEW DRESSINGS. PROVIDED CLEAN LINENS AND ASSISTED PATIENT WITH REPOSITIONING. PATIENT NOW COMFORTABLE AND SLEEPING.
[2018-07-18 04:00] VITALS: BP 143/74
--- NOTE | 2018-07-18 05:39 | NUR ---
PATIENT SLEEPING. NO SIGNS OF DISTRESS ON RA. SAFETY PRECAUTIONS IN PLACE. WILL CONTINUE TO MONITOR.
[2018-07-18] MEDS: BLOOD GLUCOSE MONITORING 1 DEV DEV FS SCH ×4 (06:30→21:08)
--- NOTE | 2018-07-18 07:30 | NUR ---
RECEIVED REPORT FROM NIGHT NURSE AT BEDSIDE. PT IS AOX4. ALL SAFETY MEASURES IN PLACE WITH CALL LIGHT IN REACH. HAS A LEFT HAND IV SITE AT TKO RATE. IV SITE IS ASYMPTOMATIC AND PATENT. PT HAS BILATERAL KNEE DRESSING, THE LEFT ONE AT THIS TIME HAD MODERATE SEROSANGUINOUS DRAINAGE. CHANGED DRESSING AT THIS TIME. ALL SAFETY MEASURES IN PLACE, CALL LIGHT WITHIN REACH. POC DISCUSSED WITH PT. RIGHT UPPER ARM FISTULA WITH BRUIT AND THRILL.
[2018-07-18 08:00] VITALS: BP 143/75
[2018-07-18] MEDS: BUMETANIDE 1 MG TAB PO SCH ×3 (08:35→17:43)
[2018-07-18] MEDS: CALCIUM ACETATE 667 MG TAB PO SCH ×3 (08:35→17:43)
[2018-07-18] MEDS: CHOLECALCIFEROL 1,000 IU TAB PO SCH (08:36)
[2018-07-18] MEDS: FAMOTIDINE 20 MG TAB PO SCH (08:36)
[2018-07-18] MEDS: DOCUSATE SODIUM 250 MG GELCAP PO SCH ×2 (08:36→21:07)
[2018-07-18] MEDS: predniSONE 20 MG TAB PO SCH (08:36)
[2018-07-18] MEDS: amLODIPine 5 MG TAB PO SCH (08:36)
[2018-07-18] MEDS: LACTOBACILLUS RHAMNOSUS GG 1 EACH CAP PO SCH (08:36)
--- NOTE | 2018-07-18 08:36 | NUR ---
ADMINISTERED MEDICATIONS. REVIEWED MEDICATIONS INDICATIONS WITH PT. PT HAS NO OBVIOUS SIGNS OF DISTRESS WITH BREATHING SYMMETRICAL AND UNLABORED.
[2018-07-18] MEDS: ASPIRIN 81 MG TAB.CHEW PO SCH (08:37)
[2018-07-18] MEDS: FERROUS SULFATE 325 MG TABEC PO SCH ×2 (08:37→21:06)
[2018-07-18] MEDS: ALLOPURINOL 100 MG TAB PO SCH (08:37)
[2018-07-18] MEDS: VIT-B COMP/VIT-C/FOLIC ACID 1 TAB PO SCH (08:37)
[2018-07-18] MEDS: ERYTHROMYCIN 0.5% OPTH OINT 1 GM TUBE OP SCH ×2 (08:38→21:08)
--- NOTE | 2018-07-18 11:40 | NUR ---
PT RESTING IN BED WITH NO REQUESTS AND NO OBVIOUS SIGNS OF DISTRESS.
--- NOTE | 2018-07-18 11:47 | NUR ---
INFORMED DR COTO THAT STATED HE WOULD INFORM DR. LILLY THAT THE PATIENT CHARTS FROM [place] ARE PRESENTLY IN THE PATIENT CHART.
[2018-07-18] MEDS: INSULIN LISPRO SLIDING SCALE 100 UNITS/ML VIAL SUBQ PRN ×3 (11:59→21:05)
[2018-07-18 12:00] VITALS: BP 144/68
--- NOTE | 2018-07-18 12:15 | NUR ---
NO OBVIOUS SIGNS OF DISTRESS AT THIS TIME. PT HAS NO REQUESTS AND DENIES PAIN. REPLACED BANDAGES FOLLOWS: CLEANSED WITH NORMAL SALINE, PATTED DRY WITH 4X4, APPLIED ADAPTIC AND THEN DRY GAUZE AND SECURED WITH TAPE. PT TOLERATED WELL REPORTING 0/10 PAIN THROUGHOUT ENTIRE PROCESS. BREATHING IS SYMMETRICAL AND UNLABORED.
--- NOTE | 2018-07-18 13:37 | NUR ---
PT IS SLEEPING IN BED BREATHING IS SYMMETRICAL AND UNLABORED.
--- NOTE | 2018-07-18 15:09 | NUR ---
SPOKE WITH DR CARLOS INQUIRING IF THERE WAS A REASON SHE KNEW OF IF THE PATIENT DIDN'T HAVE LABS ORDERED FOR TODAY. SHE INFORMED ME THAT THE ORDERS ARE IN BUT IT DOES NOT APPEAR TO HAVE BEEN DRAWN OR POSTED POSSIBLY. I THEN CONTACTED THE LAB AND THEY INFORMED ME THEY WOULD COME DRAW LABS AND VERIFIED THAT THERE IS AN ORDER TO DO SO WHILE ON THE PHONE WITH ME.
--- NOTE | 2018-07-18 15:28 | NUR ---
PT IS RESTING IN BED EASILY AROUSABLE BY NAME. PT HAS NO OBVIOUS SIGNS OF DISTRESS AND IS BREATHING UNLABORED. I ASKED IF PATIENT HAS ANY REQUESTS TO WHICH HE STATES HE WANTS SOME COOKIES. ADVISED PT ON DIABETIC PRECAUTIONS TO WHICH HE SAYS THAT HE WOULD BE FINE WITH APPLESAUCE OR SOMETHING ELSE LIKE THAT. I CALLED [facility] AND ASKED FOR ADVICE AND WAS INFORMED HE CAN HAVE DIET PUDDING AND WOULD CHECK IF THEY HAVE LOW SUGAR APPLESAUCE AND BRING IT TO THE FLOOR.
[2018-07-18 16:00] VITALS: BP 136/68
--- NOTE | 2018-07-18 16:00 | NUR ---
PT IS DISAGREEABLE TO DIET PUDDING AND STATES HE WOULD RATHER HAVE NOTHING. NO OBVIOUS SIGNS OF DISTRESS AT THIS TIME AND NO FURTHER REQUESTS.
[2018-07-18 16:12] LABS: BASOPHILS # (AUTO) 0.1 K/uL (0.00-0.22); BASOPHILS % (AUTO) 0.8 % (0.0-2.0); EOSINOPHILS % (AUTO) 0.1 % (0.0-4.0); HEMATOCRIT 26.6 % (36-52); HEMOGLOBIN 8.1 g/dL (12.0-18.0); LYMPHOCYTES # (AUTO) 1.2 K/uL (2.0-11.5); LYMPHOCYTES % (AUTO) 12.5 % (20.5-51.1); MEAN CORPUSCULAR HEMOGLOBIN 28 pg (27-31); MEAN CORPUSCULAR HGB CONC 31 g/dL (33-37); MONOCYTES # (AUTO) 0.2 K/uL (0.8-1.0); MONOCYTES % (AUTO) 2.5 % (1.7-9.3); NEUTROPHILS # (AUTO) 7.8 K/uL (1.8-7.7); NEUTROPHILS % (AUTO) 84.1 % (42.2-75.2); PLATELET COUNT (AUTO) 432 K/uL (140-450); RED BLOOD CELL COUNT(AUTO) 2.88 MIL/uL (4.20-6.10); RED CELL DISTRIBUTION WIDTH 15.7 % (11.6-13.7); WHITE BLOOD COUNT (AUTO) 9.2 K/uL (4.8-10.8)
[2018-07-18 16:56] LABS: ANION GAP 16.7 (8-16); CARBON DIOXIDE 23.6 mmol/L (21-32); CHLORIDE 96 mmol/L (98-107); GLUCOSE 202 mg/dL (74-106); MAGNESIUM 2.2 mg/dL (1.8-2.4); PHOSPHORUS 3.8 mg/dL (2.5-4.9); POTASSIUM 5.3 mmol/L (3.5-5.1); SODIUM SERUM 131 mmol/L (136-145)
[2018-07-18 17:07] LABS: UREA NITROGEN, BLOOD 74 mg/dL (7-18)
--- NOTE | 2018-07-18 17:11 | NUR ---
RECEIVED PHONE CALL FROM LAB AT 1704 STATING THAT PT CREATININE CAME IN CRITICAL HIGH AT 74. I VERBALIZED THIS BACK TO THEM TO CONFIRM THIS READING TO WHICH THEY STATED YES. SPOKE TO DR. LILLY AND INFORMED HIM OF REPORTED 74 READING ON CREATININE. HE INFORMED ME TO NOTIFY HIM IF POTASSIUM COMES BACK GREATER THAN 6.0 AND TO CONTINUE TO MONITOR PATIENT.
[2018-07-18 17:17] LABS: CREATININE 6.4 mg/dL (0.7-1.3)
[2018-07-18] MEDS: CYANOCOBALAMIN 1,000 MCG TAB PO SCH (17:43)
--- NOTE | 2018-07-18 18:01 | NUR ---
PT RESTING IN BED WITH NO REQUESTS OTHER THEN ASKING WHEN DINNER IS. INFORMED PT IT WOULD BE BROUGHT NOW. PT HAS NO OTHER REQUESTS WITH NO OBVIOUS SIGNS OF DISTRESS.
--- NOTE | 2018-07-18 18:50 | NUR ---
DIALYSIS NURSE CATARINA CALLED TO NOTIFY OF DIALYSIS ORDER FOR TOMORROW.
--- NOTE | 2018-07-18 19:13 | NUR ---
REPORT GIVEN TO LAMINATING MACHINE OPERATOR HELPER NURSE QUINN, ISHMAEL INSTABLE CONDITION.
--- NOTE | 2018-07-18 19:14 | NUR ---
RECEIVED BEDSIDE REPORT FROM DAY SHIFT RN. PATIENT IN STABLE CONDITION. NO SIGNS OF DISTRESS ON RA, SAFETY PRECAUTIONS IN PLACE.
[2018-07-18 20:00] VITALS: BP 128/61
[2018-07-18] MEDS: ATORVASTATIN 80 MG TAB PO SCH (21:07)
[2018-07-18] MEDS: LATANOPROST 0.005% OP 2.5 ML BTL OP SCH (21:07)
--- NOTE | 2018-07-18 21:18 | NUR ---
ADMINISTERED SCHEDULED MEDICATIONS. PATIENT TOLERATED WELL. REPOSITIONED FOR COMFORT. PROVIDED WOUND CARE. CHANGED DRESSINGS ON BILATERAL KNEES.
--- NOTE | 2018-07-18 23:38 | NUR ---
PATIENT REQUESTING BED DEGROOT AND URINAL. ASSISTED PATIENT WITH BOTH. CLEANED AND REPOSITIONED PATIENT FOR COMFORT. VITALS STABLE. NO SIGNS OF DISTRESS ON RA.
[2018-07-19] VITALS: BP 150/80
--- NOTE | 2018-07-19 00:30 | NUR ---
PATIENT SLEEPING. VITALS STABLE. SAFETY PRECAUTIONS IN PLACE. CALL LIGHT IN REACH.
[2018-07-19] MEDS: NACL 0.9% 1,000 ML IV SCH (02:08)
--- NOTE | 2018-07-19 02:30 | NUR ---
PATIENT SLEEPING. NO SIGNS OF DISTRESS ON RA. SAFETY PRECAUTIONS IN PLACE.
[2018-07-19 04:00] VITALS: BP 129/45
--- NOTE | 2018-07-19 04:30 | NUR ---
PATIENT SLEEPING. VITALS STABLE, NO SIGNS OF DISTRESS ON RA. WILL CONTINUE TO MONITOR.
[2018-07-19] MEDS: BLOOD GLUCOSE MONITORING 1 DEV DEV FS SCH ×4 (06:33→20:51)
--- NOTE | 2018-07-19 06:41 | NUR ---
PATIENT GLUCOSE LEVEL IS 120, NO ACTION NEEDED. PATIENT IS REQUESTING A SNACK. RACQUEL CRACKERS PROVIDED. PATIENT IN STABLE CONDITION. WILL ENDORSE TO DAY SHIFT FOR CONTINUITY OF CARE.
[2018-07-19 07:07] LABS: ANION GAP 17.2 (8-16); CARBON DIOXIDE 24.2 mmol/L (21-32); CHLORIDE 97 mmol/L (98-107); GLUCOSE 132 mg/dL (74-106); POTASSIUM 5.4 mmol/L (3.5-5.1); SODIUM SERUM 133 mmol/L (136-145)
[2018-07-19 07:13] LABS: MAGNESIUM 2.1 mg/dL (1.8-2.4); PHOSPHORUS 3.7 mg/dL (2.5-4.9)
--- NOTE | 2018-07-19 07:15 | NUR ---
BEDSIDE REPORT RECEIVED FROM ASSEMBLER ARRANGER NURSE, PT IS ASLEEP, NO S/S OF ACUTE DISTRESS OR SOB NOTED. PT IS ON ROOM AIR, BILATERAL KNEE WOUNDS ARE COVERED WITH DRY DRESSINGS. 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 IV SITE ON THE L WRIST, 20 G, SALINE LOCKED. 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 PT IS ON FALL PRECAUTIONS, CALL LIGHT WITHIN REACH. WILL CONTINUE TO MONITOR.
[2018-07-19 07:20] LABS: BASOPHILS % (AUTO) 0.2 % (0.0-2.0); HEMOGLOBIN 8.5 g/dL (12.0-18.0); LYMPHOCYTES # (AUTO) 2.5 K/uL (2.0-11.5); LYMPHOCYTES % (AUTO) 24.4 % (20.5-51.1); MEAN CORPUSCULAR HEMOGLOBIN 29 pg (27-31); MEAN CORPUSCULAR HGB CONC 31 g/dL (33-37); MEAN CORPUSCULAR VOLUME 91.6 fL (80-94); MONOCYTES # (AUTO) 0.8 K/uL (0.8-1.0); MONOCYTES % (AUTO) 7.9 % (1.7-9.3); NEUTROPHILS % (AUTO) 67.5 % (42.2-75.2); RED BLOOD CELL COUNT(AUTO) 2.94 MIL/uL (4.20-6.10); RED CELL DISTRIBUTION WIDTH 15.7 % (11.6-13.7); WHITE BLOOD COUNT (AUTO) 10.4 K/uL (4.8-10.8)
[2018-07-19 07:22] LABS: CREATININE 7.1 mg/dL (0.7-1.3); UREA NITROGEN, BLOOD 91 mg/dL (7-18)
--- NOTE | 2018-07-19 07:27 | NUR ---
GAVE BEDSIDE REPORT TO DAY SHIFT RNCHELA. PATIENT IS IN STABLE CONDITION SHOWING NO SIGNS OF DISTRESS ON RA. SAFETY PRECAUTIONS ARE IN PLACE.
[2018-07-19 07:39] LABS: PLATELET COUNT (AUTO) 469 K/uL (140-450)
--- NOTE | 2018-07-19 07:55 | NUR ---
PT RECEIVED A PUREED BREAKFAST MEAL, STATES THAT "THIS IS NOT THE TYPE OF FOOD" HE GOT IN THE PAST. I CALLED THE KITCHEN AND TOLD THE CONTROL EQUIPMENT ELECTRICIAN, SHE SAID SHE WILL COME LOOK AT THE PT'S TRAY AND FIX THE PROBLEM.
[2018-07-19 08:00] VITALS: BP 161/84
--- NOTE | 2018-07-19 08:07 | NUR ---
PT HAVING HEMODIALYSIS AT THIS TIME
[2018-07-19] MEDS ORDERED: ONDANSETRON 4 MG/2 ML VIAL IVP PRN (08:45)
[2018-07-19] MEDS: CALCIUM ACETATE 667 MG TAB PO SCH ×3 (08:47→17:26)
[2018-07-19] MEDS: ASPIRIN 81 MG TAB.CHEW PO SCH (08:47)
[2018-07-19] MEDS: VIT-B COMP/VIT-C/FOLIC ACID 1 TAB PO SCH (08:47)
[2018-07-19] MEDS: predniSONE 20 MG TAB PO SCH (08:48)
[2018-07-19] MEDS: ALLOPURINOL 100 MG TAB PO SCH (08:48)
[2018-07-19] MEDS: DOCUSATE SODIUM 250 MG GELCAP PO SCH ×2 (08:48→20:52)
[2018-07-19] MEDS: CHOLECALCIFEROL 1,000 IU TAB PO SCH (08:49)
[2018-07-19] MEDS: LACTOBACILLUS RHAMNOSUS GG 1 EACH CAP PO SCH (08:49)
[2018-07-19] MEDS: EPOETIN ALFA 10,000 UNITS/ML VIAL HD SCH (08:53)
[2018-07-19] MEDS: ERYTHROMYCIN 0.5% OPTH OINT 1 GM TUBE OP SCH ×2 (08:54→21:00)
[2018-07-19] MEDS: amLODIPine 5 MG TAB PO SCH (08:54)
--- NOTE | 2018-07-19 08:55 | NUR ---
SCHEDULED AM MEDS ADMINISTERED, PT TOLERATED WELL. PT REFUSED THE ERYTHROMYCIN EYE OINTMENT, STATES THAT IT "BLURS HIS VISION", AND HE ONLY WANTS IT IN THE EVENING.
--- NOTE | 2018-07-19 10:55 | NUR ---
PT SLEEPING AT THIS TIME, HEMODIALYSIS IS ONGOING. PT ASKED FOR A BAGEL EARLIER.
[2018-07-19] MEDS: INSULIN LISPRO SLIDING SCALE 100 UNITS/ML VIAL SUBQ PRN ×3 (11:55→21:22)
[2018-07-19 12:00] VITALS: BP 143/77
--- NOTE | 2018-07-19 14:10 | NUR ---
PT SEEN BY THE OFFICE MACHINES SALES REPRESENTATIVE FLAVIO REGARDING PLANNING AN APPOINTMENT AT [facility].
--- NOTE | 2018-07-19 14:22 | NUR ---
MET WITH PATIENT AT THE BEDSIDE. PATIENT IS AWAKE, ALERT AND ORIENTED TO PERSON, PLACE, DATE AND TIME. PER PATIENT HE IS A RESIDENT OF [facility] AT [facility] [place] [address] FOR 2 YEARS NOW. HE NEEDS HELP WITH ADL'S, BUT ABLE TO FEED HIMSELF. ALL MEDICATION ARE PROVIDED BY THE FACILITY. HE IS ABLE TO USE URINAL BUT NEEDS ASSISTANCE WITH BEDPAN. DR. ROSALES IS THE ONE SEEING HIM IN THE FACILITY BUT NO REGULAR [place] PCP. HE HAD HIS BILATERAL KNEE SURGERY AT [facility] 20 YEARS AGO. HE USES WHEELCHAIR AND A WALKER. HE USED TO HAVE A VEHICLE SCOOTER BUT NOT ANYMORE. NO O2 USE. HE GOES TO [facility] FOR HIS DIALYSIS. HIS MAIN CONCERN DURING THIS HOSPITALIZATION IS GETTING DISCHARGE. HE IS NOT SURE IF HE STILL CAN GO BACK TO [facility], EXPLAINED TO HIM THAT HE IS ON A 7 DAY BED HOLD. ABLE TO VERBALIZE UNDERSTANDING.
--- NOTE | 2018-07-19 15:04 | NUR ---
PT WAS GIVEN A BED BATH, AND BED LINENS CHANGED.
[2018-07-19 16:00] VITALS: BP 124/73
[2018-07-19] MEDS: CYANOCOBALAMIN 1,000 MCG TAB PO SCH (17:26)
--- NOTE | 2018-07-19 18:56 | NUR ---
PT ATE ALL OF HIS DINNER AND CLAIMED THAT IT WAS "SKIMPY", AND THAT HE WOULD RATHER EAT "SOME REAL FOOD THAN STARVE". SUBSEQUENTLY HE ASKED FOR A TUNA SANDWICH.
--- NOTE | 2018-07-19 19:15 | NUR ---
PT ENDORSED TO SEAM PRESS OPERATOR IN STABLE CONDITION.
--- NOTE | 2018-07-19 19:16 | NUR ---
RECEIVED BEDSIDE REPORT FROM DAY SHIFT RN. PATIENT IN STABLE CONDITION. NO SIGNS OF SOB OR ANY RESPIRATORY DISTRESS NOTED ON ROOM AIR. IV SITE ON L WRIST 20G, PATENT, INTACT. SKIN WARM AND DRY TO TOUCH. SAFETY PRECAUTIONS IN PLACE. BED IN LOW POSITION. CALL LIGHT WITHIN REACH.
[2018-07-19 20:00] VITALS: BP 122/77
--- NOTE | 2018-07-19 20:51 | NUR ---
BS CHECKED. 192, INSULIN WILL BE ADMINISTERED.
[2018-07-19] MEDS: ATORVASTATIN 80 MG TAB PO SCH (20:52)
[2018-07-19] MEDS: LATANOPROST 0.005% OP 2.5 ML BTL OP SCH (21:18)
--- NOTE | 2018-07-19 21:22 | NUR ---
2 UNITS OF INSULIN GIVEN. PT TOLERATED WELL. WILL CONTINUE TO MONITOR.
--- NOTE | 2018-07-19 23:55 | NUR ---
PT SLEEPING IN BED. VS CHECKED. WITHIN PT'S BASELINE. BED IN LOW POSITION. CALL LIGHT WITHIN REACH.
[2018-07-20] VITALS: BP 124/39
--- NOTE | 2018-07-20 02:05 | NUR ---
PT SLEEPING IN BED. NO S/S OF SOB OR ANY RESPIRATORY DISTRESS NOTED. WILL CONTINUE TO MONITOR.
[2018-07-20] MEDS: NACL 0.9% 1,000 ML IV SCH (02:08)
[2018-07-20 04:00] VITALS: BP 151/52
--- NOTE | 2018-07-20 04:15 | NUR ---
VS CHECKED. WITHIN PT'S BASELINE. BED IN LOW POSITION. CALL LIGHT WITHIN REACH. WILL CONTINUE TO MONITOR.
[2018-07-20] MEDS: BLOOD GLUCOSE MONITORING 1 DEV DEV FS SCH ×4 (05:51→20:25)
--- NOTE | 2018-07-20 05:52 | NUR ---
BS CHECKED, 101. NO INSULIN COVERAGE NEEDED.
--- NOTE | 2018-07-20 07:22 | NUR ---
ENDORSED PT TO DAY SHIFT NURSE. PT IN STABLE CONDITION.
--- NOTE | 2018-07-20 07:25 | NUR ---
RECEIVED HANDOFF REPORT FROM PRECIPITATOR SUPERVISOR NURSE PT IS STABLE AND IN NO APPARENT DISTRESS. ALL SAFETY MEASURES ARE IN PLACE WILL CONTINUE TO MONITOR.
[2018-07-20 07:36] LABS: ANION GAP 15.4 (8-16); CARBON DIOXIDE 23.4 mmol/L (21-32); CHLORIDE 102 mmol/L (98-107); GLUCOSE 104 mg/dL (74-106); POTASSIUM 4.8 mmol/L (3.5-5.1); SODIUM SERUM 136 mmol/L (136-145)
[2018-07-20 08:00] VITALS: BP 169/78
[2018-07-20 08:16] LABS: CREATININE 5.5 mg/dL (0.7-1.3); UREA NITROGEN, BLOOD 71 mg/dL (7-18)
--- NOTE | 2018-07-20 08:35 | NUR ---
PT REQUESTING TO SPEAK TO [facility] BECAUSE HE WANTS REAL BUTTER. INFORMED PT THAT HE CANT HAVE REAL BUTTER BECAUSE OF THE DIET HE IS ON. INFORMED CHARGE NURSE AND SHE CALLED [facility].
[2018-07-20 08:37] LABS: PHOSPHORUS 3.3 mg/dL (2.5-4.9)
[2018-07-20] MEDS: ERYTHROMYCIN 0.5% OPTH OINT 1 GM TUBE OP SCH (09:00)
[2018-07-20] MEDS: ASPIRIN 81 MG TAB.CHEW PO SCH (09:15)
[2018-07-20] MEDS: CHOLECALCIFEROL 1,000 IU TAB PO SCH (09:15)
[2018-07-20] MEDS: LACTOBACILLUS RHAMNOSUS GG 1 EACH CAP PO SCH (09:15)
[2018-07-20] MEDS: CALCIUM ACETATE 667 MG TAB PO SCH ×3 (09:15→17:22)
[2018-07-20] MEDS: ALLOPURINOL 100 MG TAB PO SCH (09:16)
[2018-07-20] MEDS: DOCUSATE SODIUM 250 MG GELCAP PO SCH ×2 (09:16→20:25)
[2018-07-20] MEDS: VIT-B COMP/VIT-C/FOLIC ACID 1 TAB PO SCH (09:16)
[2018-07-20] MEDS: FAMOTIDINE 20 MG TAB PO SCH (09:16)
[2018-07-20] MEDS: predniSONE 20 MG TAB PO SCH (09:17)
[2018-07-20] MEDS: amLODIPine 5 MG TAB PO SCH (09:17)
--- NOTE | 2018-07-20 09:21 | NUR ---
PT REFUSED ERYTHROMYCIN EYE OINTMENT HE STATED THAT HE ONLY TAKES IT IN THE EVENING.
--- NOTE | 2018-07-20 09:21 | NUR ---
[facility] LAB VALUE STILL PENDING WILL ADMINISTER HEPARIN ONCE PLT VALUES ARE CHARTED BY LAB
[2018-07-20 10:07] LABS: HEMATOCRIT 28.5 % (36-52); HEMOGLOBIN 8.7 g/dL (12.0-18.0); MEAN CORPUSCULAR VOLUME 93.7 fL (80-94); RED BLOOD CELL COUNT(AUTO) 3.04 MIL/uL (4.20-6.10); WHITE BLOOD COUNT (AUTO) 20.8 K/uL (4.8-10.8)
[2018-07-20 10:08] LABS: EOSINOPHILS % (AUTO) 0.9 % (0.0-4.0); LYMPHOCYTES % (AUTO) 23.1 % (20.5-51.1); MEAN CORPUSCULAR HEMOGLOBIN 29 pg (27-31); MEAN CORPUSCULAR HGB CONC 30 g/dL (33-37); MONOCYTES % (AUTO) 9.6 % (1.7-9.3); NEUTROPHILS % (AUTO) 65.9 % (42.2-75.2)
[2018-07-20 10:09] LABS: BASOPHILS # (AUTO) 0.1 K/uL (0.00-0.22); BASOPHILS % (AUTO) 0.5 % (0.0-2.0); EOSINOPHILS # (AUTO) 0.2 K/uL (0-0.4); LYMPHOCYTES # (AUTO) 4.8 K/uL (2.0-11.5); NEUTROPHILS # (AUTO) 13.7 K/uL (1.8-7.7); PLATELET COUNT (AUTO) 468 K/uL (140-450)
[2018-07-20] MEDS ORDERED: LACT10CA PO (10:54)
[2018-07-20] MEDS ORDERED: Vancomycin Per Pharmacy MC (10:54)
[2018-07-20 11:24] LABS: BASOPHILS # (AUTO) 0.1 K/uL (0.00-0.22); BASOPHILS % (AUTO) 0.3 % (0.0-2.0); EOSINOPHILS # (AUTO) 0.2 K/uL (0-0.4); EOSINOPHILS % (AUTO) 1.2 % (0.0-4.0); HEMATOCRIT 29.8 % (36-52); HEMOGLOBIN 9.1 g/dL (12.0-18.0); LYMPHOCYTES # (AUTO) 3.2 K/uL (2.0-11.5); LYMPHOCYTES % (AUTO) 18.5 % (20.5-51.1); MEAN CORPUSCULAR HEMOGLOBIN 28 pg (27-31); MEAN CORPUSCULAR HGB CONC 30 g/dL (33-37); MONOCYTES # (AUTO) 1.2 K/uL (0.8-1.0); MONOCYTES % (AUTO) 7.2 % (1.7-9.3); NEUTROPHILS # (AUTO) 12.6 K/uL (1.8-7.7); NEUTROPHILS % (AUTO) 72.8 % (42.2-75.2); RED BLOOD CELL COUNT(AUTO) 3.21 MIL/uL (4.20-6.10); RED CELL DISTRIBUTION WIDTH 15.9 % (11.6-13.7); WHITE BLOOD COUNT (AUTO) 17.4 K/uL (4.8-10.8)
[2018-07-20 11:30] LABS: PLATELET COUNT (AUTO) 510 K/uL (140-450)
--- NOTE | 2018-07-20 11:30 | NUR ---
FREQUENT ROUNDING ON PT PT IS STABLE AND IN NO APPARENT DISTRESS. ALL SAFETY MEASURES ARE IN PLACE WILL CONTINUE TO MONITOR.
[2018-07-20 12:00] VITALS: BP 166/74
[2018-07-20] MEDS: INSULIN LISPRO SLIDING SCALE 100 UNITS/ML VIAL SUBQ PRN ×3 (12:31→20:53)
--- NOTE | 2018-07-20 13:03 | NUR ---
Spoke to Sara at [facility] regarding transfer patient to higher level of care, Sara stated faxed the information with the order and at this time there is no bed available. Called [facility] and spoke to Clay at [phone] and faxed information with order at [phone]. Clay said that [facility] is closer to [place] and there is no bed available at [facility]. Called back Sara at [phone] and informed Sara that no bed available in [facility]. Sara stated that to call tomorrow the [facility] sup to follow up on the bed.
--- NOTE | 2018-07-20 13:25 | NUR ---
PROVIDED WOUND CARE AND REPOSITIONED AND CLEANED PT PT IS STABLE AND IN NO APPARENT DISTRESS. PT STATED NO PAIN WITH WOUND CARE. CHANGED PT LINENS WELL AND PROVIDED PERICARE
--- NOTE | 2018-07-20 13:45 | NUR ---
FREQUENT ROUNDING ON PT PT IS STABLE AND IN NO APPARENT DISTRESS. ALL SAFETY MEASURES ARE IN PLACE WILL CONTINUE TO MONITOR
--- NOTE | 2018-07-20 15:45 | NUR ---
FREQUENT ROUNDING ON PT REPOSITIONED PT. PT APPEARS STABLE AND IN NO APPARENT DISTRESS. ALL SAFETY MEASURES ARE IN PLACE. WILL CONTINUE TO MONITOR.
[2018-07-20 16:00] VITALS: BP 166/75
[2018-07-20] MEDS: CYANOCOBALAMIN 1,000 MCG TAB PO SCH (17:22)
--- NOTE | 2018-07-20 17:45 | NUR ---
FREQUENT ROUNDING PT IS STABLE AND IN NO APPARENT DISTRESS. ALL SAFETY MEASURES ARE IN PLACE. WILL CONTINUE TO MONITOR, HELPED REPOSITION PT. PT STATED NO PAIN
--- NOTE | 2018-07-20 19:33 | NUR ---
ENDORSED PT TO TAPE COATER NURSE PT IS STABLE AND IN NO APPARENT DISTRESS. ALL SAFETY MEASURES ARE IN PLACE.
--- NOTE | 2018-07-20 19:34 | NUR ---
RECEIVED BEDSIDE REPORT FROM DAY SHIFT NURSE. PT IS AOX4. NO S/S OF SOB OR ANY RESPIRATORY DISTRESS NOTED. HAS A LEFT HAND IV SITE AT TKO RATE. IV SITE IS ASYMPTOMATIC AND PATENT. PT HAS BILATERAL KNEE DRESSING, ALL SAFETY MEASURES IN PLACE WITH CALL LIGHT IN REACH. POC DISCUSSED WITH PT. BED IN LOW POSITION. WILL CONTINUE TO MONITOR.
[2018-07-20] MEDS: LATANOPROST 0.005% OP 2.5 ML BTL OP SCH (20:24)
[2018-07-20] MEDS: ATORVASTATIN 80 MG TAB PO SCH (20:25)
--- NOTE | 2018-07-20 20:25 | NUR ---
GIVEN COLACE, HEPARIN, XALATAN, LIPITOR. PT TOLERATED WELL. BS CHECKED, 184, WILL ADMINISTER INSULIN.
--- NOTE | 2018-07-20 20:53 | NUR ---
GIVEN INSULIN DRVicente ORDERED. PT TOLERATED WELL. WILL CONTINUE TO MONITOR.
--- NOTE | 2018-07-20 22:45 | NUR ---
PT SLEEPING IN BED COMFORTABLY. NO S/S OF SOB OR ANY ACUTE DISTRESS NOTED. BED IN LOW POSITION. CALL LIGHT WITHIN REACH.
[2018-07-21] VITALS: BP 145/47
--- NOTE | 2018-07-21 00:49 | NUR ---
PT SLEEPING IN BED. BREATHING EVEN AND UNLABORED. NO ACUTE DISTRESS NOTED. WILL CONTINUE TO MONITOR.
[2018-07-21] MEDS: NACL 0.9% 1,000 ML IV SCH (02:08)
--- NOTE | 2018-07-21 03:11 | NUR ---
PT SLEEPING IN BED COMFORTABLY. RESPIRATION EVEN AND UNLABORED. NO ACUTE DISTRESS NOTED. BED IN LOW POSITION. CALL LIGHT WITHIN REACH.
[2018-07-21] MEDS: BLOOD GLUCOSE MONITORING 1 DEV DEV FS SCH ×2 (07:30→11:44)
[2018-07-21 08:00] VITALS: BP 158/86
[2018-07-21 08:13] LABS: ANION GAP 17.1 (8-16); CARBON DIOXIDE 22.9 mmol/L (21-32); CHLORIDE 100 mmol/L (98-107); GLUCOSE 135 mg/dL (74-106); SODIUM SERUM 135 mmol/L (136-145)
[2018-07-21 08:18] LABS: BASOPHILS % (AUTO) 0.3 % (0.0-2.0); EOSINOPHILS # (AUTO) 0.1 K/uL (0-0.4); EOSINOPHILS % (AUTO) 0.5 % (0.0-4.0); HEMATOCRIT 28.1 % (36-52); HEMOGLOBIN 8.7 g/dL (12.0-18.0); LYMPHOCYTES # (AUTO) 4.9 K/uL (2.0-11.5); LYMPHOCYTES % (AUTO) 27.6 % (20.5-51.1); MEAN CORPUSCULAR HEMOGLOBIN 29 pg (27-31); MEAN CORPUSCULAR HGB CONC 31 g/dL (33-37); MONOCYTES # (AUTO) 1.3 K/uL (0.8-1.0); MONOCYTES % (AUTO) 7.3 % (1.7-9.3); NEUTROPHILS # (AUTO) 11.4 K/uL (1.8-7.7); NEUTROPHILS % (AUTO) 64.3 % (42.2-75.2); RED BLOOD CELL COUNT(AUTO) 3.02 MIL/uL (4.20-6.10); RED CELL DISTRIBUTION WIDTH 15.9 % (11.6-13.7); WHITE BLOOD COUNT (AUTO) 17.7 K/uL (4.8-10.8)
[2018-07-21 08:24] LABS: PHOSPHORUS 3.8 mg/dL (2.5-4.9)
--- NOTE | 2018-07-21 08:30 | NUR ---
[facility] WAS DOWN. PLEASE REFER TO PAPER DOCUMENT.
[2018-07-21 08:32] LABS: PLATELET COUNT (AUTO) 508 K/uL (140-450)
[2018-07-21 08:48] LABS: CREATININE 6.5 mg/dL (0.7-1.3); UREA NITROGEN, BLOOD 93 mg/dL (7-18)
--- NOTE | 2018-07-21 08:56 | NUR ---
RECEIVED CRITICAL FROM LAB FOR BUN 93 AND CR 6.5. NOTIFIED DR NO AND DR NO WAS AWARE. PATIENT IS IN DIALYSIS AND SOINA SCHAFER IS BY BEDSIDE.
[2018-07-21] MEDS: amLODIPine 5 MG TAB PO SCH (09:00)
--- NOTE | 2018-07-21 09:45 | NUR ---
PATIENT IS AWAKE AND DOING DIALYSIS AT THIS TIME. SONIA RN IS BY BEDSIDE. NO SIGNS OF DISTRESS NOTED. SAFETY MEASURES IN PLACE. BED IN LOW POSITION AND CALL LIGHT WITHIN REACH.
[2018-07-21] MEDS: DOCUSATE SODIUM 250 MG GELCAP PO SCH (10:01)
[2018-07-21] MEDS: LACTOBACILLUS RHAMNOSUS GG 1 EACH CAP PO SCH (10:01)
[2018-07-21] MEDS: predniSONE 20 MG TAB PO SCH (10:01)
[2018-07-21] MEDS: ASPIRIN 81 MG TAB.CHEW PO SCH (10:02)
[2018-07-21] MEDS: CHOLECALCIFEROL 1,000 IU TAB PO SCH (10:02)
[2018-07-21] MEDS: ALLOPURINOL 100 MG TAB PO SCH (10:03)
[2018-07-21] MEDS: CALCIUM ACETATE 667 MG TAB PO SCH ×2 (10:22→11:44)
[2018-07-21] MEDS: VIT-B COMP/VIT-C/FOLIC ACID 1 TAB PO SCH (10:22)
[2018-07-21] MEDS: EPOETIN ALFA 10,000 UNITS/ML VIAL HD SCH (10:22)
--- NOTE | 2018-07-21 10:22 | NUR ---
ADMINISTERED MEDS PER MD ORDER, PATIENT REFUSED TO TAKE PREDNISONE AND STATED, " I DO NOT WANT TO TAKE PREDNISONE. I HAVE NEVER TAKEN IT BEFORE, AND I WOULD LIKE TO SPEAK WITH THE DR ABOUT IT." INFORMED PATIENT THAT WILL NOTIFY DR ON HIS REQUEST AND PROVIDED MEDICATION EDUCATION AT BEDSIDE. HOLD NORVASC AT THIS TIME DUE TO DIALYSIS. PATIENT DENIES ANY PAIN AND DISCOMFORT AT THIS TIME. MIXER LEVER OPERATOR SONIA IS AT BEDSIDE. SAFETY MEASURES IN PLACE. BED IN LOW POSITION AND CALL LIGHT WITHIN REACH.
--- NOTE | 2018-07-21 11:14 | NUR ---
PATIENT IS AWAKE AND DOING DIALYSIS AT THIS TIME. DIALYSIS SONIA RN IS BY BEDSIDE. PATIENT DENIES PAIN AND SOB. RESPIRATION EVEN AND UNLABORED. NO SIGNS OF DISTRESS NOTED. SAFETY MEASURES IN PLACE. BED IN LOW POSITION AND CALL LIGHT WITHIN REACH.
--- NOTE | 2018-07-21 11:15 | NUR ---
SPOKE WITH CESILIA FROM [facility], STATED PT IS GOING TO ROOM 618-B. CONTACTED [facility] FOR TRANSPORT, JOHANNA STATED PT'S INSURANCE IS OUT OF THEIR SERVICE AREA. CONTACTED [facility], SPOKE WITH HARRISON, STATED ETA FOR [facility] IS AT 3PM ( THEIR EARLIEST TIME). EDMUND NURSE KYLE MADE AWARE.
--- NOTE | 2018-07-21 12:38 | NUR ---
CALLED [facility] AND GAVE FULL REPORT TO JOYCE Bess RN. INFORMED JOYCE THAT PATIENT WILL BE [facility] FROM [facility] AT 1500 TODAY AND GOING TO ROOM 618-B. PATIENT WILL BE ON ANTIBIOTIC FOR 6 WEEKS PER MD ORDER. ANSWERED ALL JOYCE'S QUESTIONS AND PROVIDED A CALL BACK NUMBER FOR FURTHER INQUIRY. JOYCE WAS AWARE THAT PATIENT WILL BE TRANSFER TO THEIR FACILITY.
[2018-07-21] MEDS ORDERED: VANCOMYCIN 1,500 MG in DEXTROSE 5% 500 ML IV SCH (13:00)
[2018-07-21] MEDS ORDERED: VANC1.5P9 IV (13:21)
--- NOTE | 2018-07-21 13:36 | NUR ---
CLEANED AND CHANGED PATIENT'S BILATERAL WOUND DRESSINGS. PATIENT TOLERATED WELL. DENIED PAIN WHILE CLEANSING WOUNDS. SAFETY MEASURES IN PLACE. BED IN LOW POSITION AND CALL LIGHT WITHIN REACH. INSTRUCTED PATIENT TO USE THE CALL LIGHT FOR ANY ASSISTANCE.
--- NOTE | 2018-07-21 14:25 | NUR ---
FIRESTOPPER INSTALLER HAS CHANGED PATIENT INTO [place]. PATIENT IS READY TO BE TRANSFER AND AWAITING FOR TRANSPORT TO ARRIVE. PATIENT DENIES PAIN AND SOB. NO SIGNS OF DISTRESS NOTED. SAFETY MEASURES IN PLACE.
--- NOTE | 2018-07-21 15:35 | NUR ---
DISCHARGE INSTRUCTION PROVIDED TO PATIENT. EDUCATED PATIENT ON DISEASE MANAGEMENT, SIGNS AND SYMPTOMS, MEDICATION REGIMEN, MEDICATION SIDE EFFECTS. ANSWERED ALL PATIENTS' QUESTIONS. DISCHARGE PICTURES TAKEN. REMOVED ALL ARM BANDS. PATIENT TOOK ALL THE DISCHARGE DOCUMENTS AND BELONGINGS. IV ON L WRIST 20G, CLEAN AND INTACT. PATIENT IS GOING TO TRANSFER TO [facility] AT THIS TIME IN STABLE CONDITION.
== END 2018-07-21 15:35 | DRG 559 ==
LOC: MED 20:05 → MTU 07-16 02:08
PROVIDERS: ADMIT General Practice; ATTEND General Practice
PROC: 5A1D70Z Performance of Urinary Filtration, Intermittent, Less than 6 Hours Per Day (ICD-10-PCS; principal; 2018-07-17)
PROC: 5A1D70Z Performance of Urinary Filtration, Intermittent, Less than 6 Hours Per Day (ICD-10-PCS; 2018-07-19)
PROC: 5A1D70Z Performance of Urinary Filtration, Intermittent, Less than 6 Hours Per Day (ICD-10-PCS; 2018-07-21)
DX: T84.54XA Infection and inflammatory reaction due to internal left knee prosthesis, initial encounter (principal); N18.6 End stage renal disease; E43 Unspecified severe protein-calorie malnutrition; I50.43 Acute on chronic combined systolic (congestive) and diastolic (congestive) heart failure; N17.0 Acute kidney failure with tubular necrosis; L03.116 Cellulitis of left lower limb; M00.062 Staphylococcal arthritis, left knee; L97.929 Non-pressure chronic ulcer of unspecified part of left lower leg with unspecified severity; I13.2 Hypertensive heart and chronic kidney disease with heart failure and with stage 5 chronic kidney disease, or end stage renal disease; L97.919 Non-pressure chronic ulcer of unspecified part of right lower leg with unspecified severity; M00.061 Staphylococcal arthritis, right knee; L03.115 Cellulitis of right lower limb; T84.53XA Infection and inflammatory reaction due to internal right knee prosthesis, initial encounter; Z68.37 Body mass index [BMI] 37.0-37.9, adult; K21.9 Gastro-esophageal reflux disease without esophagitis; M10.9 Gout, unspecified; Z99.2 Dependence on renal dialysis; D64.9 Anemia, unspecified; E03.9 Hypothyroidism, unspecified; E11.21 Type 2 diabetes mellitus with diabetic nephropathy; Z88.5 Allergy status to narcotic agent; Z88.0 Allergy status to penicillin; Z88.8 Allergy status to other drugs, medicaments and biological substances; E11.22 Type 2 diabetes mellitus with diabetic chronic kidney disease; E66.9 Obesity, unspecified; E78.00 Pure hypercholesterolemia, unspecified; E78.5 Hyperlipidemia, unspecified; G47.30 Sleep apnea, unspecified; H40.9 Unspecified glaucoma; I25.10 Atherosclerotic heart disease of native coronary artery without angina pectoris; I27.20 Pulmonary hypertension, unspecified; I50.9 Heart failure, unspecified; J44.9 Chronic obstructive pulmonary disease, unspecified; M19.90 Unspecified osteoarthritis, unspecified site; N40.0 Benign prostatic hyperplasia without lower urinary tract symptoms; Z87.11 Personal history of peptic ulcer disease; Z95.0 Presence of cardiac pacemaker; Z96.619 Presence of unspecified artificial shoulder joint; Z96.653 Presence of artificial knee joint, bilateral; Z98.61 Coronary angioplasty status; F32.9 Major depressive disorder, single episode, unspecified; E11.51 Type 2 diabetes mellitus with diabetic peripheral angiopathy without gangrene; Z22.322 Carrier or suspected carrier of Methicillin resistant Staphylococcus aureus; B95.62 Methicillin resistant Staphylococcus aureus infection as the cause of diseases classified elsewhere
CPT/HCPCS: 36415; 71045; 73562; 78315; 80048; 80053; 80202; 81001; 82150; 82948; 83036; 83605; 83690; 83735; 83880; 84100; 84134; 84439; 84443; 84484; 85025; 85610; 85651; 85730; 87040; 87070; 87081; 87186; 90935; 93005; 93925; 93970; 96361; 96365; 99285; A9503; J0885; J1644; J1815; J3370; J3420; J3490; J7030; J7060; J7512; J7620; Q0092